=== PATIENT | female | born 1970 | race Caucasian/White ===

== ENCOUNTER → 2016-09-25 | Outpatient (CLI) | payer OTHER ==
--- NOTE | 2016-09-25 07:46 | US ---
EXAMINATION TYPE: US abdomen complete DATE OF EXAM: 09/25/2016 7:16 AM COMPARISON: NONE CLINICAL HISTORY: R10.9 ABD PAIN. RUQ ABD pain EXAM MEASUREMENTS: Liver Length: 18.7 cm Gallbladder Wall: 0.3 cm CBD: 0.2 cm Spleen: 11.5 cm Right Kidney: 11.6 x 4.8 x 5.0 cm Left Kidney: 11.5 x 5.8 x 4.7 cm Difficult, limited exam due to morbidly obese pt Pancreas: wnl, tail obscured by overlying bowel gas Liver: wnl Gallbladder: wnl Evidence for sonographic Jackson's sign: No CBD: wnl Spleen: wnl Right Kidney: wnl Left Kidney: wnl Upper IVC: wnl Abd Aorta: wnl No abnormality could be visualized within ABD Limited views of the pancreas are unremarkable. The liver is prominent measuring 19 cm. The gallbladder is unremarkable. The gallbladder wall measures 3 mm. Distal common hepatic duct measu res 2 mm. The spleen is normal in size. Both kidneys are unremarkable. IMPRESSION: MILD HEPATOMEGALY.
--- NOTE | 2016-09-25 07:47 | US ---
EXAMINATION TYPE: US pelvic complete DATE OF EXAM: 09/25/2016 7:23 AM COMPARISON: NONE CLINICAL HISTORY: R10.9 ABD PAIN. ABD pain TECHNIQUE: Transabdominal (TA) Date of LMP: 09/19/2016 EXAM MEASUREMENTS: Uterus: 12.1 x 6.1 x 7.3 cm Endometrial Stripe: 0.7 cm Right Ovary: 1.8 x 1.6 x 1.7 cm Left Ovary: 2.6 x 2.1 x 2.0 cm Difficult exam due to morbidly obese pt/ Pt did not want TV at this time 1. Uterus: Anteverted Enlarged, heterogeneous with probable fibroids 1)= 6.0 x 4.4 x 5.2 cm 2)= L US- 3.4 x 2.8 x 2.6 cm 2. Endometrium: wnl 3. Right Ovary: wnl 4. Left Ovary: wnl 5. Bilateral Adnexa: wnl 6. Posterior cul-de-sac: wnl IMPRESSION: 1. FIBROID UTERUS. 2. I SUSPECT SOME UNDERLYING ADENOMYOSIS.
== END | disposition home or self-care (01) ==
LOC: RADUSWWP 06:54
PROVIDERS: ATTEND Family Medicine
DX: D25.9 Leiomyoma of uterus, unspecified (principal); R16.0 Hepatomegaly, not elsewhere classified
CPT/HCPCS: 76700; 76856

== ENCOUNTER → 2016-10-03 | Outpatient (CLI) | payer OTHER ==
--- NOTE | 2016-10-03 08:50 | CT ---
EXAMINATION TYPE: CT chest wo con DATE OF EXAM: 10/03/2016 7:11 AM COMPARISON: NONE HISTORY: Rt sided chest pain per patient, pleurodynia per order CT DLP: 517.7 mGycm. Automated Exposure Control for Dose Reduction was Utilized. TECHNIQUE: CT scan of the thorax is performed without IV contrast. FINDINGS: LUNGS: Minimal scarlike opacity in the lingula near diaphragm is present on axial image 35. The lungs are otherwise predominantly clear, there is no concerning greater than 6 mm noncalcified parenchymal mass or nodule identified. There is no pleural effusion or pneumothorax seen. The tracheobronchia l tree is patent. MEDIASTINUM: Lack of IV contrast is noted to limit evaluation for mediastinal and especially hilar ad enopathy. There are no definitive greater than 1 cm hilar or mediastinal lymph nodes. No cardiomega ly or pericardial effusion is seen. Ascending aorta measures up to 3.3 cm in diameter on axial image 21. Adjacent pulmonary artery measures 3.2 cm in diameter , CT findings suggesting underlying pulmona ry artery hypertension. Slight eccentric bulging along the left lateral margin of the pulmonary root is seen on axial image 21 confirmed on coronal image 26 and sagittal image 65 anteriorly could reflec t ectasia or small eccentric aneurysm. OTHER: Multilevel spurring in thoracic spine is present. There is some generalized moderate fat repla mandi atrophy of the pectoralis muscles bilaterally. IMPRESSION: 1. No significant finding is seen to account for patient's symptoms of right-sided chest pain. 2. Prominence of pulmonary artery, CT findings suggesting pulmonary artery hypertension. There is ect latia or eccentric small aneurysm of the main pulmonary artery at its root noted. Consider cardiac ech o correlation.
== END | disposition home or self-care (01) ==
LOC: RADCTMAIN 06:54
PROVIDERS: ATTEND Family Medicine
DX: R07.81 Pleurodynia (principal); R10.9 Unspecified abdominal pain
CPT/HCPCS: 71250

== ENCOUNTER → 2016-10-23 | Outpatient (CLI) | payer OTHER ==
--- NOTE | 2016-10-24 10:50 | ECHOF ---
Referral Reason:I28.8 diseases of pulmonary vessels MEASUREMENTS -------- HEIGHT: 157.5 cm WEIGHT: 108.9 kg BP: 130/82 RVIDd: 3.1 cm (< 3.3) IVSd: 1.0 cm (0.6 - 1.1) LVIDd: 4.3 cm (3.9 - 5.3) LVPWd: 1.2 cm (0.6 - 1.1) IVSs: 1.1 cm LVIDs: 3.5 cm LVPWs: 1.2 cm LA Diam: 3.7 cm (2.7 - 3.8) LAESV Index (A-L): 25.31 ml/m Ao Diam: 3.0 cm (2.0 - 3.7) AV Cusp: 1.9 cm (1.5 - 2.6) LA Diam: 3.9 cm (2.7 - 3.8) MV EXCURSION: 14.230 mm (> 18.000) MV EF SLOPE: 103 mm/s (70 - 150) EPSS: 0.6 cm MV E Gordon: 0.78 m/s MV DecT: 237 ms MV A Gordon: 0.89 m/s MV E/A Ratio: 0.88 RAP: 5.00 mmHg RVSP: 18.87 mmHg FINDINGS -------- Sinus rhythm. Morbid Obesity There is mild concentric left ventricular hypertrophy. Overall left ventricular systolic function is low-normal with, an EF between 50 - 55 %. The right ventricle is normal in size. Normal LA size by volume 22+/-6 ml/m2. The right atrial size is normal. There is mild aortic valve sclerosis. There is no evidence of aortic regurgitation. Mild mitral annular calcification present. Mild mitral regurgitation is present. Mild tricuspid regurgitation present. There is no evidence of pulmonary hypertension. The right ventricular systolic pressure, as measured by Doppler, is 18.87mmHg. The pulmonic valve was not well visualized. The aortic root size is normal. Echo free space may represent effusion or a pericardial fat pad. CONCLUSIONS -------- 1. There is mild concentric left ventricular hypertrophy. 2. Echo free space may represent effusion or a pericardial fat pad. 3. Overall left ventricular systolic function is low-normal with, an EF between 50 - 55 %. 4. There is mild aortic valve sclerosis. 5. Mild mitral annular calcification present. 6. Mild mitral regurgitation is present. 7. Mild tricuspid regurgitation present. 8. There is no evidence of pulmonary hypertension. 9. The right ventricular systolic pressure, as measured by Doppler, is 18.87mmHg. 10. The pulmonic valve was not well visualized. RN MANAGER: Zenaida Sears RDCS
== END | disposition home or self-care (01) ==
LOC: RADECHMAIN 15:01
PROVIDERS: ATTEND Family Medicine
DX: I34.0 Nonrheumatic mitral (valve) insufficiency (principal); I07.1 Rheumatic tricuspid insufficiency
CPT/HCPCS: 93306

== ENCOUNTER → 2017-03-14 | Outpatient (CLI) | payer OTHER ==
--- NOTE | 2017-03-16 10:53 | MM ---
Reason for exam: screening (asymptomatic). Last mammogram was performed 6 years and 5 months ago. History: Patient is nulliparous. Family history of premenopausal breast cancer in maternal aunt at age 65 and breast cancer in maternal aunt. Physical Findings: A clinical breast exam by your physician is recommended on an annual basis and results should be correlated with mammographic findings. MG Screening Mammo w CAD Bilateral CC and MLO view(s) were taken. Prior study comparison: September 10, 2014, mammogram, performed at [facility] January 27, 2014, mammogram, performed at [facility] September 28, 2010, right diagnostic mammogram w/CAD. February 28, 2010, right breast mammogram dig work up. There are scattered fibroglandular densities. Stable focal asymmetry right breast 3 o'clock position. No significant changes when compared with prior studies. ASSESSMENT: Negative, BI-RAD 1 RECOMMENDATION: Routine screening mammogram of both breasts in 1 year.
== END | disposition home or self-care (01) ==
LOC: RADMAMWWP 07:39
PROVIDERS: ATTEND Family Medicine
DX: Z12.31 Encounter for screening mammogram for malignant neoplasm of breast (principal)

== ENCOUNTER 2018-01-09 19:22 | Emergency (ER) | payer OTHER ==
[2018-01-09 20:27] VITALS: RESP 18
[2018-01-09 21:08] LABS: Appearance,Urine Cloudy (Clear); Bacteria,Urine Rare /hpf; Bilirubin,Urine Negative (Negative); Blood,Urine Negative (Negative); Color,Urine Yellow; Glucose,Urine (UA) Negative (Negative); Ketones,Urine Negative (Negative); Leukocyte Esterase,Urine Negative (Negative); Mucus,Urine Rare /hpf; Nitrite,Urine Negative (Negative); PH, Urine 7.5 (5.0-8.0); Protein,Urine Trace (Negative); RBC,Urine 4 /hpf (0-5); Specific Gravity,Urine 1.022 (1.001-1.035); Squamous Epithelial Cell,Urine 5 /hpf (0-4); Urobilinogen,Urine <2.0 mg/dL (<2.0); WBC,Urine 1 /hpf (0-5)
--- NOTE | 2018-01-09 21:24 | XR ---
EXAMINATION TYPE: XR KUB DATE OF EXAM: 01/09/2018 COMPARISON: NONE HISTORY: Abdominal pain TECHNIQUE: 2 views upright FINDINGS: Bowel gas pattern is normal. There is no sign of intestinal obstruction or pneumoperitoneum . Fecal pattern is normal. There is no sign of a mass. IMPRESSION: Nonacute abdomen.
[2018-01-09] MEDS ORDERED: SODIUM CHLORIDE 0.9% 1,000 ML IV STA (22:48)
[2018-01-09] MEDS ORDERED: KETOROLAC 30 MG/ML 1 ML VIAL IVP STA (22:48)
[2018-01-09] MEDS ORDERED: METOCLOPRAMIDE 5 MG/ML 2 ML VIAL IVP STA (22:48)
[2018-01-09] MEDS ORDERED: PANTOPRAZOLE 40 MG/10 ML VIAL IVP STA (22:48)
--- NOTE | 2018-01-09 22:51 | ED ---
General Adult HPI - General Chief complaint: Abdominal Pain Stated complaint: abd and rt side pain Time Seen by Provider: 01/09/18 22:42 Source: patient, RN notes reviewed Mode of arrival: ambulatory Limitations: no limitations - History of Present Illness Initial comments: Patient is a pleasant 47-year-old female presenting to the emergency department with abdominal discomfort. Onset was around 1:30 today following eating lunch. No history of similar symptoms previously. Discomfort is in the right upper abdomen and does extend towards the back. Patient does have associated nausea, no vomiting. No fevers. Discomfort has remained somewhat severe. No leg pain or leg swelling. No chest pain. - Related Data Home Medications Medication Instructions Recorded Confirmed Acetaminophen [Tylenol] 650 mg PO Q4H PRN 01/09/18 01/09/18 Albuterol Sulfate [Proventil Hfa] 1 - 2 puff INHALATION RT-Q6H PRN 01/09/1809/21 Ferrous Sulfate [Iron] 325 mg PO DAILY 01/09/18 01/09/18 Lansoprazole [Prevacid] 15 mg PO DAILY 01/09/18 01/09/18 Menthol [Biofreeze] 1 applic TOPICAL BID PRN 01/09/18 01/09/18 Montelukast Sodium [Singulair] 10 mg PO HS 01/09/18 01/09/18 Allergies Allergy/AdvReac Type Severity Reaction Status Date / Time Sulfa (Sulfonamide AdvReac Unknown Verified 01/09/18 22:52 Antibiotics) Childhood sulfamethoxazole AdvReac Unknown Verified 01/09/18 22:52 [From Bactrim] trimethoprim [From Bactrim] AdvReac Unknown Verified 01/09/18 22:52 Review of Systems ROS Statement: Those systems with pertinent positive or pertinent negative responses have been documented in the HPI. ROS Other: All systems not noted in ROS Statement are negative. Constitutional: Denies: fever Eyes: Denies: eye pain ENT: Denies: ear pain Respiratory: Denies: cough, dyspnea Cardiovascular: Denies: chest pain Endocrine: Denies: fatigue Gastrointestinal: Reports: abdominal pain, nausea. Denies: vomiting, diarrhea, constipation Genitourinary: Denies: dysuria Musculoskeletal: Denies: arthralgia Skin: Denies: rash Neurological: Denies: weakness Past Medical History Past Medical History: Asthma History of Any Multi-Drug Resistant Organisms: None Reported Past Surgical History: Orthopedic Surgery Additional Past Surgical History / Comment(s): sinus surgery, 3 right knee, 2 left knee Past Psychological History: No Psychological Hx Reported Smoking Status: Never smoker Past Alcohol Use History: None Reported Past Drug Use History: None Reported General Exam Limitations: no limitations General appearance: alert, other (Patient does appear uncomfortable) Head exam: Present: atraumatic, normocephalic Eye exam: Present: normal appearance, PERRL ENT exam: Present: normal oropharynx Neck exam: Present: normal inspection Respiratory exam: Present: normal lung sounds bilaterally Cardiovascular Exam: Present: regular rate, normal rhythm Expanded Peripheral pulses: 2+: Dorsalis Pedis (R), Dorsalis Pedis (L) GI/Abdominal exam: Present: soft, tenderness (Mild to moderate tenderness epigastrium and right upper quadrant), normal bowel sounds. Absent: distended, guarding, rebound, rigid, pulsatile mass Extremities exam: Present: normal inspection. Absent: pedal edema, calf tenderness Back exam: Present: normal inspection Neurological exam: Present: alert Psychiatric exam: Present: normal affect, normal mood Skin exam: Present: normal color Course Vital Signs 01/09/18 20:23 Temperature 98.5 F Pulse Rate 103 H Respiratory 18 Rate Blood Pressure 138/80 O2 Sat by Pulse 97 Oximetry Medical Decision Making - Medical Decision Making Patient reevaluated and resting comfortably in bed. Symptoms have significantly improved with medication. Abdomen soft and nontender. Patient updated on results and need for follow-up with surgeon. Patient also advised to return for fevers or worsening symptoms. - Lab Data Result diagrams: 01/09/18 22:42 01/09/18 22:42 Lab Results 01/09/18 01/09/18 01/09/18 Range/Units 20:27 22:42 22:42 WBC 11.8 H (3.8-10.6) k/uL RBC 4.59 (3.80-5.40) m/uL Hgb 12.6 (11.4-16.0) gm/dL Hct 39.3 (34.0-46.0) % MCV 85.6 (80.0-100.0) fL MCH 27.4 (25.0-35.0) pg MCHC 32.0 (31.0-37.0) g/dL RDW 14.0 (11.5-15.5) % Plt Count 488 H (150-450) k/uL Neutrophils % 74 % Lymphocytes % 21 % Monocytes % 4 % Eosinophils % 1 % Basophils % 0 % Neutrophils # 8.7 H (1.3-7.7) k/uL Lymphocytes # 2.5 (1.0-4.8) k/uL Monocytes # 0.4 (0-1.0) k/uL Eosinophils # 0.1 (0-0.7) k/uL Basophils # 0.0 (0-0.2) k/uL Hypochromasia Slight PT (9.0-12.0) sec INR (<1.2) APTT (22.0-30.0) sec Sodium 140 (137-145) mmol/L Potassium 4.1 (3.5-5.1) mmol/L Chloride 98 (98-107) mmol/L Carbon Dioxide 30 (22-30) mmol/L Anion Gap 12 mmol/L BUN 17 (7-17) mg/dL Creatinine 0.71 (0.52-1.04) mg/dL Est GFR (CKD-EPI)AfAm >90 (>60 ml/min/1.73 sqM) Est GFR (CKD-EPI)NonAf >90 (>60 ml/min/1.73 sqM) Glucose 116 H (74-99) mg/dL Calcium 9.9 (8.4-10.2) mg/dL Total Bilirubin 0.4 (0.2-1.3) mg/dL AST 19 (14-36) U/L ALT 23 (9-52) U/L Alkaline Phosphatase 99 (38-126) U/L Total Protein 8.0 (6.3-8.2) g/dL Albumin 4.6 (3.5-5.0) g/dL Amylase 96 (30-110) U/L Lipase 145 (23-300) U/L Urine Color Yellow Urine Appearance Cloudy H (Clear) Urine pH 7.5 (5.0-8.0) Ur Specific [place] 1.022 (1.001-1.035) Urine Protein Trace H (Negative) Urine Glucose (UA) Negative (Negative) Urine Ketones Negative (Negative) Urine Blood Negative (Negative) Urine Nitrite Negative (Negative) Urine Bilirubin Negative (Negative) Urine Urobilinogen <2.0 (<2.0) mg/dL Ur Leukocyte Esterase Negative (Negative) Urine RBC 4 (0-5) /hpf Urine WBC 1 (0-5) /hpf Ur Squamous Epith Cells 5 H (0-4) /hpf Urine Bacteria Rare H (None) /hpf Urine Mucus Rare H (None) /hpf 01/09/18 Range/Units 22:42 WBC (3.8-10.6) k/uL RBC (3.80-5.40) m/uL Hgb (11.4-16.0) gm/dL Hct (34.0-46.0) % MCV (80.0-100.0) fL MCH (25.0-35.0) pg MCHC (31.0-37.0) g/dL RDW (11.5-15.5) % Plt Count (150-450) k/uL Neutrophils % % Lymphocytes % % Monocytes % % Eosinophils % % Basophils % % Neutrophils # (1.3-7.7) k/uL Lymphocytes # (1.0-4.8) k/uL Monocytes # (0-1.0) k/uL Eosinophils # (0-0.7) k/uL Basophils # (0-0.2) k/uL Hypochromasia PT 9.8 (9.0-12.0) sec INR 1.0 (<1.2) APTT 22.7 (22.0-30.0) sec Sodium (137-145) mmol/L Potassium (3.5-5.1) mmol/L Chloride (98-107) mmol/L Carbon Dioxide (22-30) mmol/L Anion Gap mmol/L BUN (7-17) mg/dL Creatinine (0.52-1.04) mg/dL Est GFR (CKD-EPI)AfAm (>60 ml/min/1.73 sqM) Est GFR (CKD-EPI)NonAf (>60 ml/min/1.73 sqM) Glucose (74-99) mg/dL Calcium (8.4-10.2) mg/dL Total Bilirubin (0.2-1.3) mg/dL AST (14-36) U/L ALT (9-52) U/L Alkaline Phosphatase (38-126) U/L Total Protein (6.3-8.2) g/dL Albumin (3.5-5.0) g/dL Amylase (30-110) U/L Lipase (23-300) U/L Urine Color Urine Appearance (Clear) Urine pH (5.0-8.0) Ur Specific [place] (1.001-1.035) Urine Protein (Negative) Urine Glucose (UA) (Negative) Urine Ketones (Negative) Urine Blood (Negative) Urine Nitrite (Negative) Urine Bilirubin (Negative) Urine Urobilinogen (<2.0) mg/dL Ur Leukocyte Esterase (Negative) Urine RBC (0-5) /hpf Urine WBC (0-5) /hpf Ur Squamous Epith Cells (0-4) /hpf Urine Bacteria (None) /hpf Urine Mucus (None) /hpf - Radiology Data Radiology results: report reviewed (Ultrasound shows some shadowing in the region of the gallbladder that could relate to contracted gallbladder with stones. Gallbladder is not definitively seen. No dilated ducts.), image reviewed (KUB shows no acute process) Disposition Clinical Impression: Abdominal pain Disposition: HOME SELF-CARE Condition: Stable Instructions: Abdominal Pain (ED), Gallstones (ED), Low Fat Diet (ED) Additional Instructions: Please follow-up with general surgeon in the next day or 2 for recheck, number provided. Return for fevers, increased pain, worsening or changing symptoms or other concerns. Is patient prescribed a controlled substance at d/c from ED?: No Referrals: Selina Carpenter DO [Primary Care Provider] - 1-2 days Miguelina Bravo MD [STAFF PHYSICIAN] - 1-2 days Time of Disposition: 23:46
[2018-01-09 23:11] LABS: Basophils % (A) 0 %; Eosinophils # (A) 0.1 k/uL (0-0.7); Eosinophils % (A) 1 %; HCT 39.3 % (34.0-46.0); HGB 12.6 gm/dL (11.4-16.0); Hypochromasia Slight; Lymphocytes # (A) 2.5 k/uL (1.0-4.8); Lymphocytes % (A) 21 %; MCH 27.4 pg (25.0-35.0); MCV 85.6 fL (80.0-100.0); Mean Platelet Volume 6.5; Monocytes # (A) 0.4 k/uL (0-1.0); Monocytes % (A) 4 %; Neutrophils # (A) 8.7 k/uL (1.3-7.7); Neutrophils % (A) 74 %; Platelet Count 488 k/uL (150-450); RBC 4.59 m/uL (3.80-5.40); WBC 11.8 k/uL (3.8-10.6)
[2018-01-09 23:21] LABS: ALT 23 U/L (9-52); AST 19 U/L (14-36); Albumin 4.6 g/dL (3.5-5.0); Alkaline Phosphatase 99 U/L (38-126); Amylase 96 U/L (30-110); Anion Gap 12 mmol/L; Blood Urea Nitrogen 17 mg/dL (7-17); Calcium 9.9 mg/dL (8.4-10.2); Carbon Dioxide 30 mmol/L (22-30); Chloride 98 mmol/L (98-107); Glucose 116 mg/dL (74-99); Lipase 145 U/L (23-300); Potassium 4.1 mmol/L (3.5-5.1); Sodium 140 mmol/L (137-145); Total Bilirubin 0.4 mg/dL (0.2-1.3)
[2018-01-09 23:23] LABS: Partial Thromboplastin Time 22.7 sec (22.0-30.0); Prothrombin Time 9.8 sec (9.0-12.0)
--- NOTE | 2018-01-09 23:38 | US ---
EXAMINATION TYPE: US gallbladder DATE OF EXAM: 01/09/2018 COMPARISON: 09/25/2016 CLINICAL HISTORY: Pain. Pain and nausea. Exam limitations due to bbody habitus. EXAM MEASUREMENTS: Liver Length: 20 cm Gallbladder Wall: Not well visualized due to body habitus and bowel gas. CBD: 0.6 cm Right Kidney: 10.5 x 4.2 x 3.7 cm Pancreas: Obscured by bowel gas Liver: Increased attenuation hepatomegaly. Gallbladder: Obscured by overlying bowel gas or possible GENNA sign. Limited. Evidence for sonographic Jackson's sign: Yes CBD: wnl Right Kidney: No hydronephrosis or masses seen IMPRESSION: There is some shadowing in the region of the gallbladder that could relate to contracted gallbladder filled with stones. No dilated ducts. No discrete liver mass. Gallbladder is not definiti vely seen. This is a change compared to last exam.
[2018-01-10 00:04] VITALS: BP 156/90; PULSE 63; TEMP 98
== END 2018-01-10 00:05 | disposition home or self-care (01) ==
LOC: EC 19:22
DX: R10.9 Unspecified abdominal pain (principal); R11.0 Nausea; J45.909 Unspecified asthma, uncomplicated; Z98.890 Other specified postprocedural states; Z79.899 Other long term (current) drug therapy; Z88.1 Allergy status to other antibiotic agents; Z88.2 Allergy status to sulfonamides
CPT/HCPCS: 36415; 93005; 80053; 82150; 83690; 85025; 85610; 85730; 81001; 74018; 76705; 99284; 96374; 96375 ×2; 96361; J2765; J1885; C9113

== ENCOUNTER → 2018-01-14 | Outpatient (CLI) | payer OTHER ==
--- NOTE | 2018-01-14 09:08 | US ---
EXAMINATION TYPE: US abdomen complete DATE OF EXAM: 01/14/2018 COMPARISON: US 01/09/2018 CLINICAL HISTORY: Gallstones K56.3. Inconclusive ultrasound done 5 days ago. Possible gallstones. RUQ pain EXAM MEASUREMENTS: Liver Length: 16.4 cm Gallbladder Wall: 0.2 cm CBD: 0.5 cm Spleen: 9.8 cm Right Kidney: 12.0 x 4.3 x 5.4 cm Left Kidney: 10.8 x 4.9 x 4.2 cm Pancreas: Obscured by bowel gas Liver: Attenuating, echogenic Gallbladder: No stones visualized Evidence for sonographic Jackson's sign: No CBD: wnl as visualized Spleen: wnl Right Kidney: Echogenic foci visualized measuring 1.0 cm Left Kidney: Limited due to overlying bowel gas, visualized portions show a possible echogenic foci measuring 0.6 cm Upper IVC: wnl Abd Aorta: wnl IMPRESSION: 1. Suspect bilateral nephrolithiasis without hydronephrosis. 2. Mild fatty liver.
== END | disposition home or self-care (01) ==
LOC: RADUSWWP 08:09
PROVIDERS: ATTEND Surgery
DX: K76.0 Fatty (change of) liver, not elsewhere classified (principal)
CPT/HCPCS: 76700

== ENCOUNTER → 2018-01-28 | Outpatient (CLI) | payer OTHER ==
--- NOTE | 2018-01-28 09:54 | CT ---
EXAMINATION TYPE: CT abdomen pelvis w con DATE OF EXAM: 01/28/2018 COMPARISON: Ultrasound 01/14/2018 HISTORY: right sided abdominal pain CT DLP: 1745 mGycm Automated exposure control for dose reduction was used. CONTRAST: CT scan of the abdomen pelvis is performed with IV Contrast, patient injected with 100mL mL of Isovue 300. FINDINGS- LUNG BASES- No significant abnormality is appreciated. LIVER/GB-no gallstones. Liver may be slightly diminished in attenuation.. PANCREAS- No gross abnormality is seen. SPLEEN- No gross abnormality is seen. ADRENALS- No gross abnormality is seen. KIDNEYS/BLADDER-2.5 cm right simple renal cyst. No hydronephrosis. No renal calculi.. BOWEL- no bowel dilatation. Normal appendix. LYMPH NODES- No greater than 1cm abdominal or pelvic lymph nodes areappreciated. OSSEOUS STRUCTURES-hypertrophic change of the spine.. OTHER- uterus appears to be enlarged and there is a 4 cm soft tissue lesion in the left adnexa for w hich pelvic ultrasound is recommended. Endometrium also appears to be heterogeneous. IMPRESSION- 1. Uterus is enlarged and heterogeneous. The endometrium is heterogeneous. This can occasionally be s een with diffuse fibroid change. This correlates with a previous ultrasound of uterine fibroids. Rojas colby, there also is a 4 cm left adnexal mass posterior to the uterus on the left. Recommend ultrasound of the pelvis to determine if this is related to an exophytic fibroid, uterine mass or possibly lymp hadenopathy. 2. No renal stones, hydronephrosis or gallstones #3 simple right renal cyst
== END | disposition home or self-care (01) ==
LOC: RADCTMAIN 07:53
PROVIDERS: ATTEND Family Medicine
DX: N85.2 Hypertrophy of uterus (principal); N28.1 Cyst of kidney, acquired; R19.09 Other intra-abdominal and pelvic swelling, mass and lump
CPT/HCPCS: 74177; Q9967

== ENCOUNTER → 2018-01-29 | Outpatient (CLI) | payer OTHER ==
--- NOTE | 2018-01-29 18:51 | US ---
EXAMINATION TYPE: US pelvis complete transvag DATE OF EXAM: 01/29/2018 COMPARISON: CT 01/28/2018, pelvic ultrasound 09/25/2016, pelvic ultrasound 06/15/2010, MRI pelvis 1 CLINICAL HISTORY: R10.2 Pelvis Pain right F/U to CT TECHNIQUE: Transvaginal (TV) and Transabdominal (TA) . Transabdominal sonographic images of the pel vis were acquired. Transvaginal sonographic images were medically necessary to better assess the fol lowing anatomy: Uterus Date of LMP: 01/27/18 EXAM MEASUREMENTS: Uterus: 13.0 x 6.4 x 8.9 cm Endometrial Stripe: not visualized Right Ovary: 2.0 x 1.8 x 1.9 cm Left Ovary: 2.9 x 2.0 x 1.7cm Morbidly obese patient, technically difficult and somewhat limited study. 1. Uterus: there appears to be 2 fibroids, one located rather left and exophytic measuring 4.1 x 2.3 x 3.0cm, the other measuring 4.9 x 3.6 x 2.7cm 2. Endometrium: unable to visualize due to large fibroid and technical limitations 3. Right Ovary: wnl 4. Left Ovary: wnl 5. Bilateral Adnexa: wnl 6. Posterior cul-de-sac: wnl IMPRESSION: Left adnexal mass was seen on prior pelvic MRI and ultrasound dated 2010 that has grown in the interval from approximately 2.6 cm to 4.1 cm in greatest dimension and is thought likely to r epresent exophytic fibroid.
== END | disposition home or self-care (01) ==
LOC: RADUSWWP 15:00
PROVIDERS: ATTEND Family Medicine
DX: N85.8 Other specified noninflammatory disorders of uterus (principal)
CPT/HCPCS: 76830; 76856

== ENCOUNTER → 2018-07-15 | Outpatient (CLI) | payer OTHER ==
[2018-07-15 08:26] LABS: Basophils % (A) 0 %; Eosinophils # (A) 0.1 k/uL (0-0.7); Eosinophils % (A) 1 %; HCT 38.2 % (34.0-46.0); HGB 12.4 gm/dL (11.4-16.0); Hypochromasia Slight; Lymphocytes % (A) 28 %; MCH 28.6 pg (25.0-35.0); MCHC 32.4 g/dL (31.0-37.0); MCV 88.4 fL (80.0-100.0); Monocytes # (A) 0.4 k/uL (0-1.0); Monocytes % (A) 6 %; Neutrophils # (A) 4.4 k/uL (1.3-7.7); Neutrophils % (A) 63 %; Platelet Count 349 k/uL (150-450); RBC 4.32 m/uL (3.80-5.40); RDW 14.8 % (11.5-15.5); WBC 7.1 k/uL (3.8-10.6)
== END ==
LOC: LABPAT 07:39
PROVIDERS: ATTEND Obstetrics & Gynecology
DX: Z01.812 Encounter for preprocedural laboratory examination (principal)
CPT/HCPCS: 85025

== ENCOUNTER → 2018-07-17 | Outpatient (CLI) | payer OTHER ==
--- NOTE | 2018-07-17 12:21 | MM ---
Reason for exam: screening (asymptomatic). Last mammogram was performed 1 year and 4 months ago. History: Patient is nulliparous. Family history of premenopausal breast cancer in maternal aunt at age 65 and breast cancer in maternal aunt. Physical Findings: A clinical breast exam by your physician is recommended on an annual basis and results should be correlated with mammographic findings. MG Screening Mammo w CAD Bilateral CC and MLO view(s) were taken. Prior study comparison: March 14, 2017, bilateral MG screening mammo w CAD. September 10, 2014, mammogram, performed at [facility]. The breast tissue is heterogeneously dense. This may lower the sensitivity of mammography. There are benign appearing round calcifications bilaterally. There is no discrete abnormality. ASSESSMENT: Benign, BI-RAD 2 RECOMMENDATION: Routine screening mammogram of both breasts in 1 year.
== END | disposition home or self-care (01) ==
LOC: RADMAMWWP 07:23
PROVIDERS: ATTEND Obstetrics & Gynecology
DX: Z12.31 Encounter for screening mammogram for malignant neoplasm of breast (principal)
CPT/HCPCS: 77067

== ENCOUNTER 2018-07-22 06:13 | Day surgery (SDC) | payer OTHER ==
[2018-07-16 12:04] VITALS: BMI 43.0
--- NOTE | 2018-07-21 15:44 | P.HPOB ---
History of Present Illness H&P Date: 07/21/18 Chief Complaint: Menorrhagia with irregular cycle This is a 47-year-old female 0 who presents for dilation and curettage with hysteroscopy and NovaSure endometrial ablation due to menorrhagia with irregular cycle, dysmenorrhea, and uterine fibroids. She states she has been having heavy painful and long menses occurring for at least a year now. Her pelvic ultrasound showed a uterus measuring 13 x 6.4 x 8.9 cm with endometrium not well visualized and 2 fibroids one on the left side, exophytic, measuring 4.1 x 2.3 x 3 cm and the other measuring 4.9 x 3.6 x 2.7 cm. Both ovaries appeared normal. Her menses are occurring every 3-4 weeks and lasting about 10 days. She bleeds heavy for 5-6 days and bleeds through tampons and pads along with her clothing. She is passing large clots and having cramping. She would like definitive surgical treatment to control her bleeding problem. She is aware of the limitations of the NovaSure procedure and is aware that it may not work in her case due to the size of her uterus and the fibroids. Obstetrical history: . Gynecologic history: No history of sexually transmitted diseases. She has never been sexually active. 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 Review of Systems Constitutional: Reports fatigue, Denies chills, Denies fever Eyes: denies blurred vision, denies pain Ears, nose, mouth and throat: Denies headache, Denies sore throat Cardiovascular: Denies chest pain, Denies shortness of breath Respiratory: Denies cough Gastrointestinal: Reports heartburn Genitourinary: Reports dysmenorrhea, Reports menorrhagia, Reports pelvic pain, Reports urinary frequency Menstruation: Reports menses 8 or > days, Reports menses variable, Reports period heavy Musculoskeletal: Reports low back pain Integumentary: Denies pruritus, Denies rash Neurological: Denies numbness, Denies weakness Psychiatric: Reports anxiety, Reports insomnia Past Medical History Past Medical History: Asthma, GERD/Reflux, Hyperlipidemia, Hypertension, Osteoarthritis (OA) Additional Past Medical History / Comment(s): Anemia History of Any Multi-Drug Resistant Organisms: None Reported Past Surgical History: Breast Surgery (Right breast biopsy), Orthopedic Surgery Additional Past Surgical History / Comment(s): sinus surgery, 3 ARTHROSCOPIC- right knee, 2 ARTHROSCOPIC -left knee Past Anesthesia/Blood Transfusion Reactions: No Reported Reaction Past Psychological History: Anxiety Smoking Status: Never smoker Past Alcohol Use History: None Reported Past Drug Use History: None Reported - Past Family History Mother Family Medical History: Hypertension Father Family Medical History: Hypertension, Myocardial Infarction ([place]) Medications and Allergies Home Medications Medication Instructions Recorded Confirmed Type Ferrous Sulfate [Iron] 325 mg PO DAILY PRN 01/09/18 07/16/18 History Lansoprazole [Prevacid] 15 mg PO HS 01/09/18 07/16/18 History Menthol [Biofreeze] 1 applic TOPICAL BID PRN 01/09/18 07/16/18 History Montelukast Sodium [Singulair] 10 mg PO HS 01/09/18 07/16/18 History Lisinopril-Hctz 10-12.5 mg 1 tab PO HS 07/16/18 07/16/18 History [Zestoretic 10-12.5] Ranitidine HCl [Zantac] 150 mg PO HS PRN 07/16/18 07/16/18 History Allergies Allergy/AdvReac Type Severity Reaction Status Date / Time Sulfa (Sulfonamide AdvReac Unknown Verified 07/17/18 10:27 Antibiotics) Childhood sulfamethoxazole AdvReac "BLOOD IN Verified 07/16/18 11:34 [From Bactrim] EYES trimethoprim [From Bactrim] AdvReac "BLOOD IN Verified 07/17/18 10:27 EYES" Exam Osteopathic Statement: *. No significant issues noted on an osteopathic structural exam other than those noted in the History and Physical/Consult. HEENT: Within normal limits Heart: Regular rate and rhythm Lungs: Clear to auscultation bilaterally Abdomen: Soft, nontender Pelvic exam: Uterus is nodular and slightly enlarged, nontender with no adnexal masses or tenderness noted. Cervical os is nulliparous but difficult to completely visualize. Extremities: Negative Homans Assessment and Plan (1) Menorrhagia with irregular cycle Status: Acute Code(s): N92.1 - EXCESSIVE AND FREQUENT MENSTRUATION WITH IRREGULAR CYCLE SNOMED Code(s): 663204154 (2) Dysmenorrhea Status: Acute Code(s): N94.6 - DYSMENORRHEA, UNSPECIFIED SNOMED Code(s): 564066488 (3) Uterine leiomyoma Status: Acute Code(s): D25.9 - LEIOMYOMA OF UTERUS, UNSPECIFIED SNOMED Code(s): 05746617 Plan: Proceed with dilation and curettage with hysteroscopy and NovaSure endometrial ablation. I have discussed the risks, benefits, and alternative therapies for the above- mentioned procedure and for both sedation/anesthesia as well as necessary blood products administration, if indicated, as they pertain to this patient. The pat ient has indicated her understanding and acceptance of the risks and procedures discussed.
[~2018-07-22 06:13] MED LIST: DEXAMETHASONE SOD PHOSPHATE 10 MG/ML 1 ML VIAL IV ONE; LACTATED RINGERS 1,000 ML IV SCH; MORPHINE SULFATE 4 MG/ML SYRINGE IV PRN; ONDANSETRON 4 MG/2 ML VIAL IVP ONE; Pre Op ABX Message 1 EACH MISC MISCELLANE ONE
[2018-07-22] MEDS ORDERED: LIDOCAINE 1% 20 ML VIAL (10MG/ML) FOR IV START INTRADERMA ONE (06:54)
[2018-07-22] MEDS ORDERED: ONDANSETRON 4 MG/2 ML VIAL IVP ONE (06:55)
[2018-07-22] MEDS ORDERED: DEXAMETHASONE SOD PHOS (MDV) 100 MG/10 ML VIAL IV ONE (06:55)
[2018-07-22 07:00] VITALS: RESP 16
[2018-07-22] MEDS ORDERED: LIDOCAINE 1% INJ 10MG/ML (20 ML MDV) ONE (07:29)
[2018-07-22] MEDS ORDERED: fentaNYL (PF) 50 MCG/ML 2 ML AMP ONE (07:29)
[2018-07-22] MEDS ORDERED: MIDAZOLAM 2 MG/2 ML VIAL ONE (07:29)
[2018-07-22] MEDS ORDERED: SUCCINYLCHOLINE CHLORIDE VIAL 200 MG/10 ML VIAL IV ONE (07:29)
[2018-07-22] MEDS ORDERED: PROPOFOL 10 MG/ML 20 ML VIAL IV ONE (07:29)
[2018-07-22] MEDS ORDERED: KETOROLAC 30 MG/ML 1 ML VIAL ONE (07:29)
--- NOTE | 2018-07-22 08:10 | P.OP ---
Date of Procedure: 07/22/18 Preoperative Diagnosis: Menorrhagia with irregular cycle Dysmenorrhea Uterine fibroids Postoperative Diagnosis: Same Procedure(s) Performed: Dilation and curettage with hysteroscopy and attempted but failed NovaSure endometrial ablation Anesthesia: MARCO Surgeon: Jessica Asencio Estimated Blood Loss (ml): 20 Pathology: other (Endometrial curettings) Condition: stable Disposition: same day Indications for Procedure: This is a 47-year-old female 0 who presents for dilation and curettage with hysteroscopy and NovaSure endometrial ablation due to menorrhagia with irregular cycle, dysmenorrhea, and uterine fibroids. She states she has been having heavy painful and long menses occurring for at least a year now. Her pelvic ultrasound showed a uterus measuring 13 x 6.4 x 8.9 cm with endometrium not well visualized and 2 fibroids one on the left side, exophytic, measuring 4.1 x 2.3 x 3 cm and the other measuring 4.9 x 3.6 x 2.7 cm. Both ovaries appeared normal. Her menses are occurring every 3-4 weeks and lasting about 10 days. She bleeds heavy for 5-6 days and bleeds through tampons and pads along with her clothing. She is passing large clots and having cramping. She would like definitive surgical treatment to control her bleeding problem. She is aware of the limitations of the NovaSure procedure and is aware that it may not work in her case due to the size of her uterus and the fibroids. Operative Findings: Uterus is mid position and bulky on pelvic exam. Upon hysteroscopy, both tubal ostia are visualized however it appears that there is a fairly large submucosal fibroid between the 2 ostia creating almost a heart-shaped uterus. A large amount of endometrial curettings are obtained. Submucosal fibroids were palpated on curetting. NovaSure was not able to be completed due to vacuum error 2. Description of Procedure: The patient is taken to the operating room. She is placed in the dorsal lithotomy position after general anesthesia was given. She is prepped and draped in the normal sterile fashion. Bladder is drained with a catheter and then removed. Pelvic exam is performed under anesthesia. Uterus is found to be mid position with no adnexal masses. She is placed in slight Trendelenburg position. A right angle retractor is used to visualize the cervix. The anterior lip of the cervix is grasped with a single-tooth tenaculum. Cervix is sounded to 4 cm. Uterus is sounded to 11 cm. Cervix is gently dilated with Newton dilators until a hysteroscope could be passed. Hysteroscopy is performed using normal saline. The above noted findings are noted. Next medium-sized size sharp curette was placed. A moderate to large amount of endometrial curettings were obtained. Next NovaSure array was inserted into the endometrial cavity. Length was set at 6.5 cm and width was determined to be 4.5 cm. During attempting to open the array, initially was very difficult to open the array until I backed out slightly. Next cavity assessment was completed and passed on the first try. Next NovaSure array was fired at 168 W for 8 seconds before vacuum care was noted. The array was then removed and reinserted. One more attempts at firing was carried out and only 7 seconds passed before vacuum error was noted again. Next the array was removed, inspected and then discarded. Next the hysteroscope was reinserted. Difficult visualization was noted secondary to curetting. Hysteroscope was removed. Single-tooth tenaculum was removed from the anterior lip of the cervix. Minimal bleeding was noted. All other instruments removed from the vagina. Sponge counts were correct. Patient is taken to recovery room in stable condition. I feel that the submucosal fibroid between the 2 tubal ostia was impacting the seating of the array and possibly why it did not work in this case.
[2018-07-22 08:29] VITALS: TEMP 97.1
[2018-07-22] MEDS: HYDROmorphone 0.5 MG/0.5 ML SYRINGE IVP PRN ×2 (08:46→08:51)
[2018-07-22 09:52] VITALS: BP 105/71; PULSE 67
== END 2018-07-22 10:33 | disposition home or self-care (01) ==
LOC: OR 06:13
PROVIDERS: ATTEND Obstetrics & Gynecology
DX: N92.0 Excessive and frequent menstruation with regular cycle (principal); D25.9 Leiomyoma of uterus, unspecified; Z88.2 Allergy status to sulfonamides; I10 Essential (primary) hypertension; E78.5 Hyperlipidemia, unspecified; J45.909 Unspecified asthma, uncomplicated; K21.9 Gastro-esophageal reflux disease without esophagitis; Z79.51 Long term (current) use of inhaled steroids; Z79.899 Other long term (current) drug therapy; Z82.49 Family history of ischemic heart disease and other diseases of the circulatory system
CPT/HCPCS: 81025; 88305; 58563; J2250; J0330; J2405; J2001; J3010; J1885; J1100; J2704; J1170

== ENCOUNTER → 2018-08-20 | Outpatient (CLI) | payer OTHER ==
[2018-08-20 08:50] LABS: Basophils % (A) 0 %; Eosinophils # (A) 0.1 k/uL (0-0.7); Eosinophils % (A) 2 %; HCT 35.8 % (34.0-46.0); HGB 11.3 gm/dL (11.4-16.0); Hypochromasia Slight; Lymphocytes # (A) 1.5 k/uL (1.0-4.8); Lymphocytes % (A) 31 %; MCH 26.7 pg (25.0-35.0); MCHC 31.6 g/dL (31.0-37.0); MCV 84.4 fL (80.0-100.0); Mean Platelet Volume 6.4; Monocytes # (A) 0.2 k/uL (0-1.0); Monocytes % (A) 5 %; Neutrophils # (A) 2.9 k/uL (1.3-7.7); Neutrophils % (A) 60 %; Platelet Count 377 k/uL (150-450); RBC 4.24 m/uL (3.80-5.40); WBC 4.9 k/uL (3.8-10.6)
[2018-08-20 08:57] LABS: Anion Gap 7 mmol/L; Blood Urea Nitrogen 11 mg/dL (7-17); Calcium 8.9 mg/dL (8.4-10.2); Carbon Dioxide 30 mmol/L (22-30); Chloride 102 mmol/L (98-107); Glucose 101 mg/dL (74-99); Potassium 3.7 mmol/L (3.5-5.1); Sodium 139 mmol/L (137-145)
== END ==
LOC: LABWHC1 07:42
PROVIDERS: ATTEND Obstetrics & Gynecology
DX: Z01.812 Encounter for preprocedural laboratory examination (principal)
CPT/HCPCS: 36415; 80048; 85025

== ENCOUNTER 2018-08-27 06:01 | Inpatient (IN) | payer OTHER ==
--- NOTE | 2018-08-26 18:14 | P.HPOB ---
History of Present Illness H&P Date: 08/26/18 Chief Complaint: Simple endometrial hyperplasia This is a 47-year-old female 0 who presents for total abdominal hysterectomy with bilateral salpingo-oophorectomy due to simple endometrial hyperplasia found on dilation and curettage. She underwent dilation and curett age with hysteroscopy in July 2018 due to menorrhagia and uterine fibroids. Endometrial ablation was unable to be completed due to irregular uterine contour. Menses are occurring every 3-4 weeks and lasting at least 10 days with at least 5-6 days very heavy with large clots and cramping. Her pelvic ultrasound showed uterus measuring 13 x 6.4 x 8.9 cm with at least 2 fibroids the largest of which was 4.9 cm. Both ovaries appeared normal. Obstetrical history: G0. Gynecologic history: No history of sexually transmitted diseases. No current partner. 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 Review of Systems All systems: negative Constitutional: Reports fatigue, Denies chills, Denies fever Eyes: denies blurred vision, denies pain Ears, nose, mouth and throat: Denies headache, Denies sore throat Cardiovascular: Denies chest pain, Denies shortness of breath Respiratory: Denies cough Gastrointestinal: Reports heartburn, Denies abdominal pain, Denies diarrhea, Denies nausea, Denies vomiting Genitourinary: Reports dysmenorrhea, Reports menorrhagia, Reports pelvic pain, Reports urinary frequency Musculoskeletal: Reports low back pain Neurological: Denies numbness, Denies weakness Psychiatric: Reports anxiety, Reports insomnia Past Medical History Past Medical History: Asthma, GERD/Reflux, Hypertension, Osteoarthritis (OA) History of Any Multi-Drug Resistant Organisms: None Reported Past Surgical History: Orthopedic Surgery Additional Past Surgical History / Comment(s): sinus surgery, 3 right knee ARTHROSCOPIC, 2 left knee ARTHROSCOPIC . D&C Past Anesthesia/Blood Transfusion Reactions: No Reported Reaction Additional Past Anesthesia/Blood Transfusion Reaction / Comment(s): PATIENT STATES SHE HAD A SORE THROAT AFTER HER SURGERY IN JULY 2018- SEE ANESTHESIA REPORT-REPORT IN EMR UNDER REPORTS Smoking Status: Never smoker Past Alcohol Use History: None Reported Past Drug Use History: None Reported - Past Family History Mother Family Medical History: Hypertension Father Family Medical History: Hypertension, Myocardial Infarction ([place]) Medications and Allergies Home Medications Medication Instructions Recorded Confirmed Type Ferrous Sulfate [Iron] 325 mg PO DAILY PRN 01/09/18 08/20/18 History Lansoprazole [Prevacid] 15 mg PO HS 01/09/18 08/20/18 History Menthol [Biofreeze] 1 applic TOPICAL BID PRN 01/09/18 08/20/18 History Montelukast Sodium [Singulair] 10 mg PO HS 01/09/18 08/20/18 History Lisinopril-Hctz 10-12.5 mg 1 tab PO HS 07/16/18 08/20/18 History [Zestoretic 10-12.5] Ranitidine HCl [Zantac] 150 mg PO HS PRN 07/16/18 08/20/18 History Allergies Allergy/AdvReac Type Severity Reaction Status Date / Time adhesive tape Allergy SKIN RED Verified 08/20/18 12:04 Sulfa (Sulfonamide AdvReac Unknown Verified 08/20/18 12:04 Antibiotics) Childhood sulfamethoxazole AdvReac "BLOOD IN Verified 08/20/18 12:04 [From Bactrim] EYES trimethoprim [From Bactrim] AdvReac "BLOOD IN Verified 08/20/18 12:04 EYES" Exam Osteopathic Statement: *. No significant issues noted on an osteopathic structural exam other than those noted in the History and Physical/Consult. HEENT: Within normal limits Heart: Regular rate and rhythm Lungs: Clear to auscultation bilaterally Abdomen: Soft, nontender Pelvic exam: Uterus is enlarged and slightly nodular with no adnexal masses palpated. Extremities: Negative Homans Assessment and Plan (1) Simple endometrial hyperplasia without atypia Status: Acute Code(s): N85.01 - BENIGN ENDOMETRIAL HYPERPLASIA SNOMED Code(s): 427728921 (2) Dysmenorrhea Status: Acute Code(s): N94.6 - DYSMENORRHEA, UNSPECIFIED SNOMED Code(s): 869121515 (3) Menorrhagia with irregular cycle Status: Acute Code(s): N92.1 - EXCESSIVE AND FREQUENT MENSTRUATION WITH IRREGULAR CYCLE SNOMED Code(s): 871248031 (4) Uterine leiomyoma Status: Acute Code(s): D25.9 - LEIOMYOMA OF UTERUS, UNSPECIFIED SNOMED Code(s): 19182802 Plan: Proceed with total abdominal hysterectomy with bilateral salpingo-oophorectomy. I have discussed the risks, benefits, and alternative therapies for the above- mentioned procedure and for both sedation/anesthesia as well as necessary blood products administration, if indicated, as they pertain to this patient. The patient has indicated her understanding and acceptance of the risks and procedures discussed.
[~2018-08-27 06:01] MED LIST changes: +MIDAZOLAM (PF) 2 MG/2 ML VIAL IV PRN; -MORPHINE SULFATE 4 MG/ML SYRINGE IV PRN; +SCOPOLAMINE 1.5MG/72HR PATCH TRANSDERM ONE; +ceFAZolin IN SWFI 2 GM/20 ML SYRINGE IVP ONE
[2018-08-27] MEDS ORDERED: LIDOCAINE 1% 20 ML VIAL (10MG/ML) FOR IV START INTRADERMA ONE (06:45)
[2018-08-27] MEDS ORDERED: fentaNYL (PF) 50 MCG/ML 2 ML AMP IV ONE (06:53)
[2018-08-27] MEDS ORDERED: ePHEDrine SULFATE/0.9% NACL/PF 50 MG/5 ML SYRINGE IV ONE (07:27)
[2018-08-27] MEDS ORDERED: MORPHINE SULFATE (PF) 0.3 MG/0.3 ML SYR ONE (07:27)
[2018-08-27] MEDS ORDERED: KETOROLAC 30 MG/ML 1 ML VIAL ONE (07:27)
[2018-08-27] MEDS ORDERED: SUCCINYLCHOLINE CHLORIDE 100 MG/5 ML SYR IV ONE (07:27)
[2018-08-27] MEDS ORDERED: LIDOCAINE 1% INJ 10MG/ML (20 ML MDV) ONE (07:27)
[2018-08-27] MEDS ORDERED: ROCURONIUM BROMIDE 10 MG/ML 10 ML VIAL IV ONE (07:27)
[2018-08-27] MEDS ORDERED: GLYCOPYRROLATE 0.2 MG/ML 2 ML VIAL ONE (07:27)
[2018-08-27] MEDS ORDERED: NEOSTIGMINE 1 MG/ML 10 ML VIAL ONE (07:27)
[2018-08-27] MEDS ORDERED: PROPOFOL 10 MG/ML 20 ML VIAL IV ONE (07:27)
[2018-08-27] MEDS ORDERED: fentaNYL (PF) 50 MCG/ML 2 ML AMP ONE (07:27)
[2018-08-27] MEDS ORDERED: MIDAZOLAM 2 MG/2 ML VIAL ONE (07:27)
[2018-08-27] MEDS ORDERED: HYDROcodone/APAP 5-325MG 1 EACH TAB PO PRN (07:46)
[2018-08-27] MEDS ORDERED: diphenhydrAMINE 50 MG/ML 1 ML VIAL IVP PRN (07:46)
[2018-08-27] MEDS ORDERED: ONDANSETRON 4 MG/2 ML VIAL IVP PRN (07:46)
[2018-08-27] MEDS ORDERED: FAMOTIDINE 20 MG TAB PO PRN (07:46)
[2018-08-27] MEDS ORDERED: ZOLPIDEM 5 MG TAB PO PRN (07:46)
[2018-08-27] MEDS ORDERED: LACTATED RINGERS 1,000 ML IV ONE ×2 (08:19)
--- NOTE | 2018-08-27 08:52 | P.OP ---
Date of Procedure: 08/27/18 Preoperative Diagnosis: Simple endometrial hyperplasia Dysmenorrhea Uterine fibroids Menorrhagia with irregular cycle Postoperative Diagnosis: Same Procedure(s) Performed: Total abdominal hysterectomy with bilateral salpingo-oophorectomy Anesthesia: GETA, spinal (Duramorph) Surgeon: Jessica Asencio Bi Report Developer #1: Robert Underwood Estimated Blood Loss (ml): 50 Pathology: other (Uterus with cervix and bilateral tubes and ovaries, exophytic fibroid) Condition: stable Disposition: floor Indications for Procedure: This is a 47-year-old female 0 who presents for total abdominal hysterectomy with bilateral salpingo-oophorectomy due to simple endometrial hyperplasia found on dilation and curettage. She underwent dilation and curettage with hysteroscopy in July 2018 due to menorrhagia and uterine fibroids. Endometrial ablation was unable to be completed due to irregular uterine contour. Menses are occurring every 3-4 weeks and lasting at least 10 days with at least 5-6 days very heavy with large clots and cramping. Her pelvic ultrasound showed uterus measuring 13 x 6.4 x 8.9 cm with at least 2 fibroids the largest of which was 4.9 cm. Both ovaries appeared normal. Operative Findings: Uterus is slightly enlarged and bulky with fibroids in addition to an anterior left exophytic fibroid. Both tubes and ovaries appeared normal. The left tube and ovary were slightly adherent to the posterior fossa. Appendix was visualized and appeared normal. Description of Procedure: The patient is taken to the operating room where she is placed in the dorsal supine position. She is prepped and draped in the normal sterile fashion including Hall catheter insertion and vaginal prep. A Pfannenstiel skin incision is made with a scalpel. A second knife was used to carry the incision down to the underlying layer of fascia. The fascia was nicked in the midline with a scalpel and then extended laterally bilaterally with Monahan scissors. The superior aspect of the fascial incision was grasped with Tavo clamps, elevated off the underlying rectus muscle in the midline and then cut with Monahan scissors. The inferior aspect of the fascial incision was grasped with Tavo clamps, elevated off the underlying rectus muscle in the midline and then cut with Monahan scissors. Next the peritoneum was identified and entered sharply with Monahan scissors. It is extended superiorly and inferiorly with Metzenbaum scissors with good visualization of underlying structures. Next the [place] retractor is placed and the bladder blade was inserted. The bowels were packed with a moist 3 yard laparotomy sponge. Next the uterus is brought up incision and the corneal regions are grasped with Leticia clamps on both sides. The infundibulopelvic ligament was clamped on either side with a Kaye clamp, cut with Monahan scissors, and sutured with 0 Vicryl suture in Kaye transfixion stitches. The remaining uterine ovarian ligament and round ligament was clamped on either side with a Kaye clamp, cut with Monahan scissors, and sutured with 0 Vicryl suture in Kaye transfixion stitches. The vesicouterine peritoneum was sharply dissected away from the bladder with Metzenbaum scissors and pushed inferiorly. There was noted to be an exophytic anterior fibroid on the left side. The uterine arteries are clamped on either side with a Kaye clamp. The uterine arteries are then cut with Monahan scissors, and sutured with 0 Vicryl suture in Kaye transfixion stitches. The exophytic fibroid was then dissected away from other structures and Bovie was used to remove it from its stalk on the cervical portion of the uterus. This was removed from the field for better visualization. Next the cardinal ligaments were clamped on either side with Kaye clamp, cut with Monahan scissors, and sutured with 0 Vicryl suture in Kaye transfixion stitches. The uterosacral ligaments are clamped on either side with Kaye clamps, cut with Monahan scissors, and sutured with 0 Vicryl suture in Kaye transfixion stitches on either side. The edges of the vaginal cuff were clamped on either side with a Kaye clamp, cut with Monahan scissors, and sutured with 0 Vicryl suture in Kaye transfixion stitches and held on either side. The vaginal mucosa was then cut just below the level of the cervix and the specimen is removed from the field. The edges of the vaginal cuff were held with Tavo clamps. Next the previously held corners of each side of the vaginal cuff were then whipstitched along the connective tissue on either side and brought through the corner of the cuff and tied. Next the vaginal cuff was sutured with 0 Vicryl suture in a running locked fashion. Good hemostasis was noted. Copious irrigation is carried out with warm saline. Excellent hemostasis is noted. All sponges are removed from the abdomen and sponge counts are correct. The peritoneum is then closed with 0 Vicryl suture in a running fashion. The muscle was then reapproximated with 0 Vicryl suture in interrupted fashion. The fascia layer is then closed with 0 PDS suture in a running fashion with the knots buried on either side and in the midline. Next the subcutaneous tissues closed with 2-0 Vicryl suture in a running fashion. The skin is closed with rivas. All sponge and needle counts are correct and the patient is taken to recovery room in stable condition.
[2018-08-27] MEDS ORDERED: NALOXONE 0.4 MG/ML 1 ML VIAL IV PRN (09:09)
[2018-08-27] MEDS ORDERED: NALBUPHINE 10 MG/ML (1 ML AMP) IV PRN (09:09)
[2018-08-27] MEDS: HYDROmorphone 0.5 MG/0.5 ML SYRINGE IVP PRN ×2 (09:28→09:34)
[2018-08-27 10:30] VITALS: BMI 43.7
[2018-08-27] MEDS: SENNOSIDES-DOCUSATE SODIUM 1 EACH TAB PO SCH ×2 (10:40→20:38)
[2018-08-27] MEDS: LACTATED RINGERS 1,000 ML IV SCH ×3 (10:40→20:33)
[2018-08-27] MEDS: KETOROLAC 30 MG/ML 1 ML VIAL IVP PRN ×2 (18:00→23:29)
[2018-08-27] MEDS ORDERED: LACTATED RINGERS 500 ML IV ONE (21:00)
[2018-08-27] MEDS: LISINOPRIL-HCTZ 10-12.5 MG 1 EACH TAB PO SCH (21:08)
[2018-08-27] MEDS: MONTELUKAST 10 MG TAB PO SCH (21:56)
[2018-08-27] MEDS: PANTOPRAZOLE 40 MG TABLET PO SCH (21:56)
[2018-08-28] MEDS: LACTATED RINGERS 1,000 ML IV SCH (01:17)
[2018-08-28] MEDS: KETOROLAC 30 MG/ML 1 ML VIAL IVP PRN (06:40)
[2018-08-28] MEDS ORDERED: ACETAMINOPHEN TAB 325 MG TAB PO PRN (07:38)
[2018-08-28 07:43] LABS: Basophils % (A) 0 %; Eosinophils % (A) 0 %; HCT 25.6 % (34.0-46.0); Hypochromasia Moderate; Lymphocytes # (A) 1.5 k/uL (1.0-4.8); Lymphocytes % (A) 13 %; MCH 26.7 pg (25.0-35.0); MCHC 31.4 g/dL (31.0-37.0); MCV 85.1 fL (80.0-100.0); Monocytes # (A) 0.5 k/uL (0-1.0); Monocytes % (A) 4 %; Neutrophils # (A) 8.8 k/uL (1.3-7.7); Neutrophils % (A) 81 %; Platelet Count 335 k/uL (150-450); Poikilocytosis Slight; RBC 3.01 m/uL (3.80-5.40); WBC 10.9 k/uL (3.8-10.6)
--- NOTE | 2018-08-28 08:43 | P.PN ---
Subjective Progress Note Date: 08/28/18 Principal diagnosis: Status post JANNET/BSO postoperative day #1 Patient is doing better this morning. She has ambulated a few times. She did have some decreased urine output earlier in the day yesterday but this did resolve after 2 fluid boluses. She denies any vaginal bleeding. Her catheter was removed this morning and she has not urinated yet. She denies any flatus or bowel movement yet. Pain is fairly well controlled at this time. She complains of some chest pressure but no shortness of breath or difficulty breathing. Objective - Vital Signs Vital signs: Vital Signs Temp 98.3 F 08/27/18 23:35 Pulse 67 08/28/18 05:25 Resp 15 08/28/18 05:25 BP 97/55 08/28/18 05:25 Pulse Ox 86 L 08/28/18 08:25 Intake & Output 08/27/18 08/28/18 08/28/18 18:59 06:59 18:59 Intake Total 1850 Output Total 400 1275 Balance 1450 -1275 Intake: IV 1450 Intake, IV Titration 400 Amount Lactated Ringers 1,000 ml 400 @ 100 mls/hr IV .Q10H BERNIE Rx#:[id number] Output: Urine 325 1275 Uretheral (Hall) 20 1275 Estimated Blood Loss 75 - Constitutional General appearance: Present: no acute distress - Gastrointestinal Gastrointestinal Comment(s): Incision is clean dry and intact with rivas in place. General gastrointestinal: Present: normal bowel sounds - Labs CBC & Chem 7: 08/28/18 07:02 Labs: Abnormal Lab Results - Last 24 Hours (Table) 08/28/18 Range/Units 07:02 WBC 10.9 H (3.8-10.6) k/uL RBC 3.01 L (3.80-5.40) m/uL Hgb 8.0 L D (11.4-16.0) gm/dL Hct 25.6 L (34.0-46.0) % Neutrophils # 8.8 H (1.3-7.7) k/uL Assessment and Plan Assessment: Status post JANNET/BSO postoperative day #1 (1) Simple endometrial hyperplasia without atypia Current Visit: No Status: Acute Code(s): N85.01 - BENIGN ENDOMETRIAL HYPERPLASIA SNOMED Code(s): 824486777 (2) Dysmenorrhea Current Visit: No Status: Acute Code(s): N94.6 - DYSMENORRHEA, UNSPECIFIED SNOMED Code(s): 578482666 (3) Menorrhagia with irregular cycle Current Visit: No Status: Acute Code(s): N92.1 - EXCESSIVE AND FREQUENT MENSTRUATION WITH IRREGULAR CYCLE SNOMED Code(s): 453702729 (4) Uterine leiomyoma Current Visit: No Status: Acute Code(s): D25.9 - LEIOMYOMA OF UTERUS, UNSPECIFIED SNOMED Code(s): 09894695 Plan: We'll continue with postoperative care. Encouraged ambulation. Will switch to oral pain medications today. I will repeat CBC again tomorrow morning due to her hemoglobin dropped to 8. Will advance diet as tolerated after flatus.
--- NOTE | 2018-08-28 09:51 | P.PN ---
Progress Note - Text Progress Note Date: 08/28/18 Postoperative day 1 status post total abdominal hysterectomy, and intrathecal morphine given for postoperative analgesia, patient doing well, there is no anesthesia related complications, Patient had no headache, vital signs stable , Assessment and plan= postop day 1 , doing well there is no anesthesia related complication.
[2018-08-28] MEDS: IBUPROFEN 600 MG TAB PO PRN ×3 (10:09→21:57)
[2018-08-28] MEDS: HYDROcodone/APAP 7.5-325MG 1 EACH TAB PO PRN ×2 (12:52→19:07)
[2018-08-28] MEDS: SIMETHICONE 80 MG CHEWABLE PO PRN ×2 (14:36→19:08)
[2018-08-28] MEDS: SENNOSIDES-DOCUSATE SODIUM 1 EACH TAB PO SCH ×2 (18:59→21:22)
[2018-08-28] MEDS: MONTELUKAST 10 MG TAB PO SCH (21:04)
[2018-08-28] MEDS: PANTOPRAZOLE 40 MG TABLET PO SCH (21:04)
[2018-08-28] MEDS: LISINOPRIL-HCTZ 10-12.5 MG 1 EACH TAB PO SCH (21:04)
[2018-08-29] MEDS: HYDROcodone/APAP 7.5-325MG 1 EACH TAB PO PRN ×4 (01:03→21:45)
[2018-08-29] MEDS: KETOROLAC 30 MG/ML 1 ML VIAL IVP PRN (03:31)
[2018-08-29 07:00] LABS: Basophils % (A) 0 %; Eosinophils # (A) 0.1 k/uL (0-0.7); Eosinophils % (A) 1 %; HCT 24.1 % (34.0-46.0); HGB 7.5 gm/dL (11.4-16.0); Hypochromasia Moderate; Lymphocytes # (A) 2.1 k/uL (1.0-4.8); Lymphocytes % (A) 32 %; MCH 26.8 pg (25.0-35.0); MCHC 31.3 g/dL (31.0-37.0); MCV 85.7 fL (80.0-100.0); Mean Platelet Volume 6.7; Monocytes # (A) 0.4 k/uL (0-1.0); Monocytes % (A) 6 %; Neutrophils % (A) 59 %; Platelet Count 279 k/uL (150-450); RBC 2.81 m/uL (3.80-5.40); RDW 14.6 % (11.5-15.5); WBC 6.8 k/uL (3.8-10.6)
[2018-08-29] MEDS: SENNOSIDES-DOCUSATE SODIUM 1 EACH TAB PO SCH ×3 (08:29→21:15)
--- NOTE | 2018-08-29 09:04 | P.PN ---
Subjective Progress Note Date: 08/29/18 Principal diagnosis: Status post JANNET/BSO postoperative day #2 Patient is doing better. She is ambulating and urinating without difficulty. She denies any dizziness or shortness of breath. She did pass a little bit of flatus but no bowel movement yet. She is tolerating regular food. She denies any vaginal bleeding. She did have a little more pain through the night and was given a Toradol at 1 AM. Objective - Vital Signs Vital signs: Vital Signs Temp 98.0 F 08/29/18 08:00 Pulse 72 08/29/18 08:00 Resp 18 08/29/18 08:00 BP 93/56 08/29/18 08:00 Pulse Ox 97 08/29/18 08:00 Intake & Output 08/28/18 08/29/18 08/29/18 18:59 06:59 18:59 Output Total 600 Balance -600 Output: Urine 600 Other: # Voids 1 1 - Constitutional General appearance: Present: no acute distress - Gastrointestinal Gastrointestinal Comment(s): Incision is clean dry and intact with rivas in place General gastrointestinal: Present: normal bowel sounds - Musculoskeletal Musculoskeletal Comment(s): Negative Homans - Labs CBC & Chem 7: 08/29/18 06:25 Labs: Abnormal Lab Results - Last 24 Hours (Table) 08/29/18 Range/Units 06:25 RBC 2.81 L (3.80-5.40) m/uL Hgb 7.5 L (11.4-16.0) gm/dL Hct 24.1 L (34.0-46.0) % Assessment and Plan Assessment: Status post JANNET/BSO postoperative day #2, postoperative blood loss anemia- stable. (1) Simple endometrial hyperplasia without atypia Current Visit: No Status: Acute Code(s): N85.01 - BENIGN ENDOMETRIAL HYPERPLASIA SNOMED Code(s): 452056037 (2) Dysmenorrhea Current Visit: No Status: Acute Code(s): N94.6 - DYSMENORRHEA, UNSPECIFIED SNOMED Code(s): 109091425 (3) Menorrhagia with irregular cycle Current Visit: No Status: Acute Code(s): N92.1 - EXCESSIVE AND FREQUENT MENSTRUATION WITH IRREGULAR CYCLE SNOMED Code(s): 782291638 (4) Uterine leiomyoma Current Visit: No Status: Acute Code(s): D25.9 - LEIOMYOMA OF UTERUS, UNSPECIFIED SNOMED Code(s): 79486414 Plan: Will continue with postoperative care 1 more day. Patient encouraged to ambulate. Will switch to oral Motrin and [place] today. Advised that we will start her on Slow Fe at home after she starts having bowel movements.
[2018-08-29] MEDS: IBUPROFEN 600 MG TAB PO PRN ×2 (12:55→19:31)
[2018-08-29] MEDS: LISINOPRIL-HCTZ 10-12.5 MG 1 EACH TAB PO SCH (21:14)
[2018-08-29] MEDS: PANTOPRAZOLE 40 MG TABLET PO SCH (21:16)
[2018-08-29] MEDS: MONTELUKAST 10 MG TAB PO SCH (21:16)
[2018-08-30] MEDS: IBUPROFEN 600 MG TAB PO PRN ×2 (01:38→09:01)
--- NOTE | 2018-08-30 08:28 | P.DS ---
Providers Date of admission: 08/27/18 06:01 Expected date of discharge: 08/30/18 Attending physician: Jessica Asencio Primary care physician: Selina Carpenter - Discharge Diagnosis(es) (1) Simple endometrial hyperplasia without atypia Current Visit: No Status: Acute (2) Dysmenorrhea Current Visit: No Status: Acute (3) Menorrhagia with irregular cycle Current Visit: No Status: Acute (4) Uterine leiomyoma Current Visit: No Status: Acute Hospital Course: This is a 47-year-old female who underwent a total abdominal hysterectomy with bilateral salpingo-oophorectomy on 08/27/2018. Postoperatively she did have some lower blood pressures and low urine output for the first evening. This did resolve. Her hemoglobin did drop to 8 and then 7.5 the next day. She has had no active bleeding. She is passing flatus but no bowel movement yet. She is urinating without difficulty. Her pain is fairly well controlled with ibuprofen and Colora. She is tolerating regular diet. Vital signs are stable at this time. Abdomen is soft with positive bowel sounds 4. Incision is clean dry and intact with rivas in place. Extremities show negative Homans. Impression is status post total abdominal hysterectomy with bilateral submental nephrectomy postoperative day #3. Plan is to discharge home today. Routine postoperative instructions are given. She is advised follow-up in the office in approximately 1 week for a postoperative check. She is encouraged to start taking Slow Fe iron supplement. She will be given a prescription for ibuprofen and Colora. Maps is checked. She is advised to call the office if she has any further questions or concerns prior to her appointment time. Procedures: Total abdominal hysterectomy with bilateral salpingo-oophorectomy on 08/27/2018 Patient Condition at Discharge: Stable Plan - Discharge Summary Discharge Rx Participant: Yes New Discharge Prescriptions: New Ibuprofen [Motrin] 600 mg PO Q6HR PRN #60 tab PRN Reason: Mild Discomfort HYDROcodone/APAP 7.5-325MG [Colora 7.5-325] 1 each PO Q6H PRN #28 tab PRN Reason: Moderate To Severe Pain Ferrous Sulfate [Slow Fe] 142 mg PO DAILY #30 tablet.er Continue Montelukast Sodium [Singulair] 10 mg PO HS Lansoprazole [Prevacid] 15 mg PO HS Menthol [Biofreeze] 1 applic TOPICAL BID PRN PRN Reason: Inflammation Ranitidine HCl [Zantac] 150 mg PO HS PRN PRN Reason: Heartburn Lisinopril-Hctz 10-12.5 mg [Zestoretic 10-12.5] 1 tab PO HS Discontinued Ferrous Sulfate [Iron] 325 mg PO DAILY PRN PRN Reason: WITH MENSTUAL CYCLE Discharge Medication List Lansoprazole [Prevacid] 15 mg PO HS 01/09/18 [History] Menthol [Biofreeze] 1 applic TOPICAL BID PRN 01/09/18 [History] Montelukast Sodium [Singulair] 10 mg PO HS 01/09/18 [History] Lisinopril-Hctz 10-12.5 mg [Zestoretic 10-12.5] 1 tab PO HS 07/16/18 [History] Ranitidine HCl [Zantac] 150 mg PO HS PRN 07/16/18 [History] Ferrous Sulfate [Slow Fe] 142 mg PO DAILY #30 tablet.er 08/30/18 [Rx] HYDROcodone/APAP 7.5-325MG [Colora 7.5-325] 1 each PO Q6H PRN #28 tab 08/30/18 [Rx] Ibuprofen [Motrin] 600 mg PO Q6HR PRN #60 tab 08/30/18 [Rx] Follow up Appointment(s)/Referral(s): Jessica Asencio DO [Doctor of Osteopathic Medicine] - 1 Week Activity/Diet/Wound Care/Special Instructions: Light activity. No heavy lifting. May shower, but no tub baths for 1 week. No intercourse for [address] no longer taking narcotics. Discharge Disposition: HOME SELF-CARE
[2018-08-30] MEDS: SENNOSIDES-DOCUSATE SODIUM 1 EACH TAB PO SCH (09:01)
[2018-08-30 12:43] VITALS: BP 134/78; PULSE 77; RESP 16; TEMP 97.8
== END 2018-08-30 10:00 | disposition home or self-care (01) | DRG 743 ==
LOC: 2ORMAIN 06:01 → 4FBP 09:01
PROVIDERS: ADMIT Obstetrics & Gynecology; ATTEND Obstetrics & Gynecology
PROC: 0UT90ZZ Resection of Uterus, Open Approach (ICD-10-PCS; principal; 2018-08-27 07:30)
PROC: 0UT70ZZ Resection of Bilateral Fallopian Tubes, Open Approach (ICD-10-PCS; principal; 2018-08-27 07:30)
PROC: 0UT20ZZ Resection of Bilateral Ovaries, Open Approach (ICD-10-PCS; principal; 2018-08-27 07:30)
DX: N85.01 Benign endometrial hyperplasia (principal); D25.9 Leiomyoma of uterus, unspecified; I10 Essential (primary) hypertension; J45.909 Unspecified asthma, uncomplicated; K21.9 Gastro-esophageal reflux disease without esophagitis; N92.0 Excessive and frequent menstruation with regular cycle; Z79.899 Other long term (current) drug therapy; Z82.49 Family history of ischemic heart disease and other diseases of the circulatory system; Z79.51 Long term (current) use of inhaled steroids; Z88.2 Allergy status to sulfonamides; Z88.8 Allergy status to other drugs, medicaments and biological substances
CPT/HCPCS: 81025; 85025; 86850; 86900; 86901; 88307; 94760

== ENCOUNTER → 2019-01-30 | Outpatient (CLI) | payer OTHER ==
[2019-01-30 10:00] LABS: Basophils % (A) 1 %; Eosinophils # (A) 0.1 k/uL (0-0.7); Eosinophils % (A) 1 %; HCT 40.3 % (34.0-46.0); HGB 13.4 gm/dL (11.4-16.0); Lymphocytes # (A) 1.8 k/uL (1.0-4.8); Lymphocytes % (A) 29 %; MCH 28.5 pg (25.0-35.0); MCHC 33.2 g/dL (31.0-37.0); MCV 85.7 fL (80.0-100.0); Mean Platelet Volume 6.4; Monocytes # (A) 0.3 k/uL (0-1.0); Monocytes % (A) 5 %; Neutrophils # (A) 3.8 k/uL (1.3-7.7); Neutrophils % (A) 62 %; Platelet Count 338 k/uL (150-450); RBC 4.71 m/uL (3.80-5.40); RDW 14.9 % (11.5-15.5); WBC 6.2 k/uL (3.8-10.6)
[2019-01-30 17:14] LABS: Albumin 4.4 g/dL (3.80-4.90); Albumin/Globulin Ratio 2.32 (1.60-3.17); BUN/Creat Ratio 16.25 Ratio (12.00-20.00); Calcium 9.6 mg/dL (8.7-10.3); Chol/HDL Ratio 4.3; Globulin 1.9 g/dL (1.6-3.3); LDL Cholesterol,Calculated 150.6 mg/dL (0.0-131.0); Potassium 4.2 mmol/L (3.5-5.5); Total Bilirubin 0.3 mg/dL (0.2-1.2); Total Protein 6.3 g/dL (6.2-8.2); VLDL Calculation 27.4 mg/dL (5.00-40.00)
[2019-01-30 17:19] LABS: Iron Saturation 10.23 (12.00-45.00)
[2019-01-30 17:27] LABS: Vitamin D 25 Hydroxy 54.8 ng/mL (30.0-100.0)
[2019-01-30 17:33] LABS: Ferritin 17.7 ng/mL (10.0-291.0)
[2019-01-30 19:44] LABS: Hemoglobin A1C 5.9 % (4.0-6.0)
== END | disposition home or self-care (01) ==
LOC: LABWHC1 09:11
PROVIDERS: ATTEND Family Medicine
DX: Z00.00 Encounter for general adult medical examination without abnormal findings (principal); E55.9 Vitamin D deficiency, unspecified; R73.03 Prediabetes; E05.90 Thyrotoxicosis, unspecified without thyrotoxic crisis or storm; Z86.2 Personal history of diseases of the blood and blood-forming organs and certain disorders involving the immune mechanism
CPT/HCPCS: 36415; 80053; 80061; 82306; 82728; 83036; 83540; 83550; 84443; 85025

== ENCOUNTER → 2019-10-23 | Outpatient (CLI) | payer OTHER ==
--- NOTE | 2019-10-23 14:12 | US ---
EXAMINATION TYPE: US kidneys/renal and bladder DATE OF EXAM: 10/23/2019 COMPARISON: CT January 28, 2018 CLINICAL HISTORY: R10.11 Abdominal Pain RUQ, N20.0 Kidney stone. Pt states right flank pain, pt state s recent pelvic surgery/hysterectomy EXAM MEASUREMENTS: Right Kidney: 11.9 x 4.6 x 5.6 cm Left Kidney: 10.3 x 5.3 x 5.8 cm Large pt body habitus Right Kidney: No evidence of hydro, lateral mid echogenic collection= 1.7 cm ? Left Kidney: Appeared wnl Bladder: wnl Bilateral Jets seen: No There is no evidence for hydronephrosis at this point in time. No nephrolithiasis is seen. There is poor visualization of roughly 2.0 cm thin-walled cyst laterally right kidney midpole level, technolog ist garner the increase through transmission. The urinary bladder is satisfactorily distended. Bilate ral ureteral jets are not seen. IMPRESSION: No hydronephrosis is noted bilaterally.
== END | disposition home or self-care (01) ==
LOC: RADUSWWP 12:19
PROVIDERS: ATTEND Family Medicine
DX: R10.11 Right upper quadrant pain (principal); N20.0 Calculus of kidney
CPT/HCPCS: 76770

== ENCOUNTER → 2019-11-21 | Outpatient (CLI) | payer OTHER ==
--- NOTE | 2019-11-21 13:44 | XR ---
EXAMINATION TYPE: XR thoracic spine complete DATE OF EXAM: 11/21/2019 CLINICAL HISTORY: pain TECHNIQUE: Frontal, lateral, and swimmer's view of thoracic spine are obtained. COMPARISON: None. FINDINGS: Thoracic spine show satisfactory alignment without evidence of acute fracture or dislocatio n. Vertebral body heights are preserved. Moderate degenerative disc space narrowing and spondylosis. Visualized ribs are unremarkable. IMPRESSION: No acute fracture or dislocation is seen in the thoracic spine. ICD 10 NO FRACTURE, INIT IAL EVALUATION
== END | disposition home or self-care (01) ==
LOC: RADXRMAIN 12:29
PROVIDERS: ATTEND Family Medicine
DX: M54.6 Pain in thoracic spine (principal)
CPT/HCPCS: 72072

== ENCOUNTER → 2019-11-26 | Outpatient (CLI) | payer OTHER ==
[2019-11-26 10:27] LABS: Basophils % (A) 1 %; Eosinophils # (A) 0.1 k/uL (0-0.7); Eosinophils % (A) 1 %; HCT 42.2 % (34.0-46.0); HGB 14.1 gm/dL (11.4-16.0); Lymphocytes # (A) 1.7 k/uL (1.0-4.8); Lymphocytes % (A) 24 %; MCH 31.9 pg (25.0-35.0); MCHC 33.5 g/dL (31.0-37.0); MCV 95.2 fL (80.0-100.0); Mean Platelet Volume 6.9; Monocytes # (A) 0.3 k/uL (0-1.0); Monocytes % (A) 5 %; Neutrophils # (A) 4.7 k/uL (1.3-7.7); Neutrophils % (A) 68 %; Platelet Count 282 k/uL (150-450); RBC 4.43 m/uL (3.80-5.40); RDW 12.9 % (11.5-15.5); WBC 6.9 k/uL (3.8-10.6)
[2019-11-26 16:44] LABS: % Iron Saturation 23.77 (12.00-45.00); African American GFR (CKD) 117.9 (60.0-200.0); Albumin 4.2 g/dL (3.80-4.90); Anion Gap 8.8 mmol/L (4.00-12.00); Calcium 9.6 mg/dL (8.7-10.3); Carbon Dioxide 30.2 mmol/L (21.6-31.8); Chol/HDL Ratio 3.89; Globulin 2.1 g/dL (1.6-3.3); Non-African American GFR(CKD) 101.7 (60.0-200.0); Potassium 4.1 mmol/L (3.5-5.5); Total Bilirubin 0.5 mg/dL (0.3-1.2); Total Protein 6.3 g/dL (6.2-8.2)
[2019-11-26 16:51] LABS: T4, Free (Free Thyroxine) 1.1 ng/dL (0.80-1.80)
[2019-11-26 16:52] LABS: Ferritin 94.5 ng/mL (10.0-291.0)
[2019-11-26 21:30] LABS: Hemoglobin A1C 5.9 % (4.0-6.0)
== END | disposition home or self-care (01) ==
LOC: LABWHC1 09:11
PROVIDERS: ATTEND Family Medicine
DX: E55.9 Vitamin D deficiency, unspecified (principal); I10 Essential (primary) hypertension; E05.90 Thyrotoxicosis, unspecified without thyrotoxic crisis or storm; R73.03 Prediabetes; Z86.2 Personal history of diseases of the blood and blood-forming organs and certain disorders involving the immune mechanism
CPT/HCPCS: 36415; 80053; 80061; 82306; 82728; 83036; 83540; 83550; 84439; 84443; 85025

== ENCOUNTER → 2019-11-28 | Outpatient (CLI) | payer OTHER ==
--- NOTE | 2019-12-04 10:10 | MM ---
Reason for exam: screening (asymptomatic). Last mammogram was performed 1 year and 4 months ago. History: Patient is postmenopausal and is nulliparous. Family history of premenopausal breast cancer in maternal aunt at age 65 and breast cancer in maternal aunt. Physical Findings: A clinical breast exam by your physician is recommended on an annual basis and results should be correlated with mammographic findings. MG Screening Mammo w CAD Bilateral CC and MLO view(s) were taken. Prior study comparison: July 17, 2018, bilateral MG screening mammo w CAD. March 14, 2017, bilateral MG screening mammo w CAD. There are scattered fibroglandular densities. Stable benign calcifications. There is no discrete abnormality. No significant changes when compared with prior studies. ASSESSMENT: Benign, BI-RAD 2 RECOMMENDATION: Routine screening mammogram of both breasts in 1 year.
== END | disposition home or self-care (01) ==
LOC: RADMAMWWP 13:35
PROVIDERS: ATTEND Family Medicine
DX: Z12.31 Encounter for screening mammogram for malignant neoplasm of breast (principal)
CPT/HCPCS: 77067

== ENCOUNTER → 2019-12-26 | Outpatient (CLI) | payer OTHER ==
--- NOTE | 2019-12-28 08:57 | MR ---
EXAMINATION TYPE: MR thoracic spine wo con DATE OF EXAM: 12/26/2019 COMPARISON: Thoracic spine x-ray November 21, 2019. HISTORY: Severe middle back pain into side for 1 to 2 years per patient TECHNIQUE: Multiplanar, multisequence imaging of thoracic spine is performed without contrast FINDINGS: Spinal cord cord shows normal course, caliber, and signal as it courses the thoracic spine. Vertebral body heights and alignment are satisfactory. Note is made of grade 1 retrolisthesis C6 on C7 on sagittal T2, and sequence. Disc space heights are fairly well maintained. Moderate to severe m ultilevel anterior and lateral spurring in the mid to lower thoracic spine is better appreciated on p gerri films versus MRI. Tiny multilevel posterior disc herniation seen on sagittal images minimally ef facing the anterior thecal sac. Review of the axial images confirm no large focal disc herniation. Paraspinal muscle bulk is preserve d. Visualized thorax and upper abdomen show no suspicious abnormality. IMPRESSION: Multilevel moderate to severe spurring mid to lower thoracic spine. Multilevel tiny poste rior disc herniations minimally effacing the anterior thecal sac
== END | disposition home or self-care (01) ==
LOC: RADMRIMAIN 21:25
PROVIDERS: ATTEND Family Medicine
DX: M51.24 Other intervertebral disc displacement, thoracic region (principal)
CPT/HCPCS: 72146

== ENCOUNTER → 2020-09-10 | Outpatient (CLI) | payer BC ==
[2020-09-10 20:43] LABS: Hemoglobin A1C 5.6 % (4.0-6.0)
[2020-09-10 21:06] LABS: African American GFR (CKD) 117.9 (60.0-200.0); Albumin 4.3 g/dL (3.80-4.90); Albumin/Globulin Ratio 2.05 (1.60-3.17); Anion Gap 11.4 mmol/L (4.00-12.00); BUN/Creat Ratio 17.14 Ratio (12.00-20.00); Calcium 9.5 mg/dL (8.7-10.3); Carbon Dioxide 29.6 mmol/L (21.6-31.8); Chol/HDL Ratio 5.02; Globulin 2.1 g/dL (1.6-3.3); LDL Cholesterol,Calculated 136.6 mg/dL (0.0-131.0); Non-African American GFR(CKD) 101.7 (60.0-200.0); Potassium 4.1 mmol/L (3.5-5.5); Total Bilirubin 0.7 mg/dL (0.2-1.2); Total Protein 6.4 g/dL (6.2-8.2); VLDL Calculation 44.4 mg/dL (5.00-40.00)
[2020-09-10 21:14] LABS: T4, Free (Free Thyroxine) 1.2 ng/dL (0.80-1.80)
== END | disposition home or self-care (01) ==
LOC: LABWHC1 07:55
PROVIDERS: ATTEND Family Medicine
DX: E05.90 Thyrotoxicosis, unspecified without thyrotoxic crisis or storm (principal); I10 Essential (primary) hypertension; E55.9 Vitamin D deficiency, unspecified; R73.03 Prediabetes
CPT/HCPCS: 36415; 80053; 80061; 82306; 83036; 84439; 84443

== ENCOUNTER → 2021-02-25 | Outpatient (CLI) | payer BC ==
--- NOTE | 2021-02-25 08:59 | XR ---
EXAM TYPE: LUMBAR SPINE X RAY SERIES COMPARISON: NONE HISTORY: Pain TECHNIQUE: 4 views are submitted. FINDINGS: Alignment is anatomic. The pedicles are intact. The transverse processes are intact. There is no s pondylolysis or spondylolisthesis. Moderate to severe degenerative disc disease T12-L1, L1-L2 and L2 -L3. Facet arthropathy at levels L3-S1. IMPRESSION: 1. Multilevel moderate to severe degenerative disc disease.
[2021-02-25 12:11] LABS: Basophils # (A) 0.02 X 10*3/uL (0.00-0.10); Basophils % (A) 0.3 %; Eosinophils # (A) 0.07 X 10*3/uL (0.04-0.35); Eosinophils % (A) 1.2 %; HCT 40.5 % (37.2-46.3); HGB 13.4 g/dL (12.0-15.0); Lymphocytes # (A) 1.59 X 10*3/uL (0.90-5.00); Lymphocytes % (A) 26.4 %; MCHC 33.1 g/dL (32.0-37.0); MCV 90.8 fL (80.0-97.0); Mean Platelet Volume 9.7 fL (9.5-12.2); Monocytes # (A) 0.36 X 10*3/uL (0.20-1.00); Neutrophils # (A) 3.97 X 10*3/uL (1.80-7.70); Neutrophils % (A) 65.8 %; Platelet Count 293 X 10*3/uL (140-440); RBC 4.46 X 10*6/uL (4.10-5.20); RDW 12.5 % (11.5-14.5); WBC 6.03 X 10*3/uL (4.50-10.00)
[2021-02-25 13:14] LABS: African American GFR (CKD) 117.1 (60.0-200.0); Albumin 4.2 g/dL (3.8-4.9); Albumin/Globulin Ratio 1.68 (1.60-3.17); Anion Gap 15.3 mmol/L (4.00-12.00); BUN/Creat Ratio 14.29 Ratio (12.00-20.00); Calcium 9.3 mg/dL (8.7-10.3); Carbon Dioxide 23.7 mmol/L (21.6-31.8); Chol/HDL Ratio 4.47 Ratio; Globulin 2.5 g/dL (1.6-3.3); LDL Cholesterol,Calculated 148.2 mg/dL (0.0-131.0); Potassium 3.9 mmol/L (3.5-5.5); Total Bilirubin 0.6 mg/dL (0.30-1.20); Total Protein 6.7 g/dL (6.2-8.2); VLDL Calculation 28.8 mg/dL (5.00-40.00)
== END | disposition home or self-care (01) ==
LOC: LABWHC1 07:25
PROVIDERS: ATTEND Family Medicine
DX: E05.90 Thyrotoxicosis, unspecified without thyrotoxic crisis or storm (principal); E55.9 Vitamin D deficiency, unspecified; E66.01 Morbid (severe) obesity due to excess calories; R73.03 Prediabetes; J45.20 Mild intermittent asthma, uncomplicated; M51.36 Other intervertebral disc degeneration, lumbar region; Z86.2 Personal history of diseases of the blood and blood-forming organs and certain disorders involving the immune mechanism
CPT/HCPCS: 36415; 72100; 80053; 80061; 82306; 83036; 84443; 85025

== ENCOUNTER → 2021-03-30 | Outpatient (CLI) | payer BC ==
--- NOTE | 2021-03-30 08:58 | MR ---
EXAMINATION TYPE: MR lumbar spine wo con DATE OF EXAM: 03/30/2021 COMPARISON: Lumbar spine x-ray February 25, 2011. HISTORY: Lumbar radiculopathy per order, chronic pain for years. TECHNIQUE: Multiplanar, multisequence imaging of the lumbar spine is performed without IV contrast. FINDINGS: Sagittal images of the lumbar spine show vertebral body heights and alignment to remain sat isfactory. Multilevel disc desiccation. Moderate disc space narrowing with mild to moderate anterior spurring L2-L3 level. The conus medullaris is normal in position and signal ending mid L1 level. Some heterogeneous Modic type II endplate change anterior superior L3 level. Axial images show mild to moderate multilevel facet arthropathy greatest at L4-L5 level. No significa nt disc herniation or spinal canal effacement. Bilateral neural foramina remain patent at all lumbar levels. Paraspinal muscle bulk is preserved. IMPRESSION: Focal degenerative change L2-L3 level. No large disc herniation to account for patient's radiculopathy type symptoms.
== END | disposition home or self-care (01) ==
LOC: RADMRIMAIN 08:15
PROVIDERS: ATTEND Family Medicine
DX: M47.26 Other spondylosis with radiculopathy, lumbar region (principal)
CPT/HCPCS: 72148

== ENCOUNTER 2021-04-26 13:52 | Emergency (ER) | payer BC ==
[2021-04-26] MEDS ORDERED: ACETAMINOPHEN TAB 500 MG TAB PO STA (14:30)
[2021-04-26] MEDS ORDERED: IBUPROFEN 600 MG TAB PO STA (14:31)
[2021-04-26] MEDS ORDERED: SODIUM CHLORIDE 0.9% 1,000 ML IV ONE (16:54)
[2021-04-26] MEDS ORDERED: DEXAMETHASONE SOD PHOSPHATE 10 MG/ML 1 ML VIAL IVP STA (16:55)
[2021-04-26] MEDS ORDERED: SODIUM CHLORIDE 0.9% 50 ML IVPB ONE (17:15)
[2021-04-26] MEDS ORDERED: CASIRIVIMAB (REGN10933) (EUA) 600 MG, IMDEVIMAB (REGN10987) (EUA) 600 MG in SODIUM CHLO... IVPB ONE (17:15)
--- NOTE | 2021-04-26 18:37 | XR ---
EXAMINATION TYPE: XR chest 2V DATE OF EXAM: 04/26/2021 COMPARISON: NONE HISTORY: Cough TECHNIQUE: 2 views FINDINGS: There is some patchy infiltrate in both lungs which is mostly interstitial. Heart size is n ormal. There is no heart failure. There are no hilar masses. Costophrenic angles are clear. Bony thor ax is intact. IMPRESSION: Patchy bilateral pneumonia. This appears new compared to old CT scan of 10/03/2016. Some o f the density is somewhat rounded and pulmonary metastatic disease not excluded.
--- NOTE | 2021-04-26 18:45 | ED ---
General Adult HPI - General Chief complaint: Upper Respiratory Infection Stated complaint: poss Covid pneumonia Time Seen by Provider: 04/26/21 16:05 Source: patient Mode of arrival: ambulatory Limitations: no limitations - History of Present Illness Initial comments: 50 year-old female patient presents to the emergency department for evaluation for cough, shortness of breath, and fever. Reports lack of appetite and nausea. She states she has been sick for the last 45 days. Started with nasal congestion and drainage. She was treated for sinus infection with antibiotics and taper of steroids. States it really did not help. States she started coughing on 04/21/21. States that she developed fever on Sunday. States prior to that her symptoms were mostly facial congestion. Denies taking anything for fever prior to arrival. - Related Data Home Medications Medication Instructions Recorded Confirmed Montelukast Sodium [Singulair] 10 mg PO HS 01/09/18 04/26/21 Lisinopril-Hctz 10-12.5 mg 1 tab PO HS 07/16/18 04/26/21 [Zestoretic 10-12.5] Albuterol Inhaler [Ventolin Hfa 2 puff INHALATION RT-QID PRN 04/26/21 04/26/21 Inhaler] Albuterol Nebulized [Ventolin 2.5 mg INHALATION RT-QID PRN 04/26/21 04/26/21 Nebulized] Ascorbic Acid [Vitamin C] 1,000 mg PO DAILY 04/26/21 04/26/21 Budesonide [Pulmicort] 0.5 mg INHALATION RT-BID PRN 04/26/21 04/26/21 Cholecalciferol [Vitamin D3 (25 50 mcg PO DAILY 04/26/21 04/26/21 Mcg = 1000 Iu)] Cranberry Fruit Extract [Cranberry] 500 mg PO DAILY 04/26/21 04/26/21 Fluticasone Nasal [place] [Flonase 1 spray EA NOSTRIL DAILY PRN 04/26/21 04/26/21 Nasal [place]] Glucosamine HCl/Chondroitin Samuels 1 cap PO DAILY 04/26/21 04/26/21 [Glucosamine-Chondroitin Cap] Lansoprazole 15 mg PO DAILY 04/26/21 04/26/21 Levofloxacin [Levaquin] 500 mg PO DAILY 04/26/21 04/26/21 Promethazine/Dextromethorphan 5 ml PO Q4H PRN 04/26/21 04/26/21 [Promethazine-Dm Syrup] predniSONE [Deltasone] See Taper PO DIRECTED 04/26/21 04/26/21 Previous Rx's Medication Instructions Recorded Dexamethasone 6 mg PO DAILY #9 tablet 04/26/21 Ipratropium-Albuterol Nebulize 3 ml INHALATION Q4H PRN #90 ml 04/26/21 [Duoneb 0.5 mg-3 mg/3 ml Soln] Allergies Allergy/AdvReac Type Severity Reaction Status Date / Time adhesive tape Allergy SKIN RED Verified 04/26/21 17:13 amoxicillin Allergy Rash/Hives Verified 04/26/21 17:13 Sulfa (Sulfonamide AdvReac Unknown Verified 04/26/21 17:13 Antibiotics) Childhood sulfamethoxazole AdvReac "BLOOD IN Verified 04/26/21 17:13 [From Bactrim] EYES trimethoprim [From Bactrim] AdvReac "BLOOD IN Verified 04/26/21 17:13 EYES" Review of Systems ROS Statement: Those systems with pertinent positive or pertinent negative responses have been documented in the HPI. ROS Other: All systems not noted in ROS Statement are negative. Past Medical History Past Medical History: Asthma History of Any Multi-Drug Resistant Organisms: None Reported Past Surgical History: Hysterectomy Additional Past Surgical History / Comment(s): sinus surgery, 3 right knee, 2 left knee Past Anesthesia/Blood Transfusion Reactions: No Reported Reaction Additional Past Anesthesia/Blood Transfusion Reaction / Comment(s): PATIENT STATES SHE HAD A SORE THROAT AFTER HER SURGERY IN JULY 2018- SEE ANESTHESIA REPORT-REPORT IN EMR UNDER REPORTS Past Psychological History: Anxiety Smoking Status: Never smoker Past Alcohol Use History: None Reported Past Drug Use History: None Reported - Past Family History Mother Family Medical History: Hypertension Father Family Medical History: Hypertension, Myocardial Infarction ([place]) General Exam Limitations: no limitations General appearance: alert, in no apparent distress, other (This is a well- developed, well-nourished adult female in no acute distress.) Eye exam: Present: normal appearance, PERRL, EOMI. Absent: scleral icterus, conjunctival injection, periorbital swelling ENT exam: Present: normal exam, normal oropharynx, mucous membranes moist Respiratory exam: Present: normal lung sounds bilaterally. Absent: respiratory distress, wheezes, rales, rhonchi, stridor Cardiovascular Exam: Present: normal rhythm, tachycardia, normal heart sounds. Absent: systolic murmur, diastolic murmur, rubs, gallop, clicks GI/Abdominal exam: Present: soft, normal bowel sounds. Absent: distended, tenderness, guarding, rebound, rigid Neurological exam: Present: alert, oriented X3, CN II-XII intact Psychiatric exam: Present: normal affect, normal mood Skin exam: Present: warm, dry, intact, normal color. Absent: rash Course Vital Signs 04/26/21 04/26/21 04/26/21 14:22 16:09 16:18 Temperature 103.1 F H 99.4 F Pulse Rate 109 H Respiratory 19 20 Rate Blood Pressure 143/84 O2 Sat by Pulse 97 95 Oximetry 04/26/21 04/26/21 04/26/21 18:14 18:51 19:36 Temperature 97.4 F L Pulse Rate 82 77 Respiratory 20 18 Rate Blood Pressure 127/69 115/67 O2 Sat by Pulse 93 L 96 Oximetry Medical Decision Making - Medical Decision Making 50-year-old female patient presents for evaluation of cough, congestion, shortness of breath. She's been sick for quite some time though the symptoms started about 5-6 days ago. Physical examination did reveal crackling in the posterior lung salmon. She did test positive for COVID-19. She did meet criteria to receive monoclonal antibody infusion. Chest x-ray did come back with evidence for multifocal pneumonia though there was some suspicion for metastatic lesions. CT chest with contrast was obtained and showed no evidence for solid pulmonary nodules at this time. There was however evidence for multifocal pneumonia. She is given IV steroids. She'll be discharged home with prescription for DuoNeb treatments and continued steroids. Return parameters were discussed in detail. She verbalizes understanding and agrees with this plan. My attending is Dr. Zavala. - Lab Data Lab Results 04/26/21 Range/Units 14:40 Coronavirus (PCR) Detected A (Not Detectd) - Radiology Data Radiology results: report reviewed, image reviewed Two-view x-ray of the chest is obtained. Report was reviewed in its entirety. Impression by Dr. Amin shows patchy bilateral pneumonia. This appears new compared to old computed tomography scan of 10/03/2016. Some of the density is somewhat rounded and pulmonary metastatic disease is not excluded. CT chest with contrast was obtained. Report was reviewed in its entirety. Impression by Dr. Amin shows multifocal moderate chronic last pulmonary interstitial infiltrates consistent with pneumonia. This appears new compared to old exam. Normal heart. No evidence of assault pulmonary nodule to suggest metastatic disease. Disposition Clinical Impression: COVID-19 Disposition: HOME SELF-CARE Condition: Good Instructions (If sedation given, give patient instructions): Coronavirus Disease 2019 (COVID-19) Additional Instructions: Tips to help you feel better: -Maintain adequate fluid intake - especially water. -Rest, you are healing your body will require extra sleep. -Eat even if you do not feel like it - broth, jello, toast are fine if you cannot eat full meals. -Take tylenol and motrin alternating (if you have no allergies or have not been instructed to avoid these medications) to help with body aches and fevers. -Obtain over the counter vitamin C, zinc, and vitamin D3. -Take medications as prescribed. Follow-up with your primary care physician for recheck in 1-2 days. Return for any new, worsening, or concerning symptoms. Prescriptions: Dexamethasone 6 mg PO DAILY #9 tablet Ipratropium-Albuterol Nebulize [Duoneb 0.5 mg-3 mg/3 ml Soln] 3 ml INHALATION Q4H PRN #90 ml PRN Reason: Wheezing/Shortness of breath Is patient prescribed a controlled substance at d/c from ED?: No Referrals: Selina Carpenter DO [Primary Care Provider] - 1-2 days Time of Disposition: 19:32
[2021-04-26 18:51] VITALS: BP 115/67; PULSE 77; RESP 18
[2021-04-26] MEDS ORDERED: RX INFO: IV CONTRAST WAS GIVEN 1 EACH MISC MISCELLANE PRN (19:33)
[2021-04-26 19:36] VITALS: TEMP 97.4
--- NOTE | 2021-04-26 20:10 | CT ---
EXAMINATION TYPE: CT chest w con DATE OF EXAM: 04/26/2021 COMPARISON: 10/03/2016 HISTORY: SOB, +covid CT DLP: 682.9 mGycm Automated exposure control for dose reduction was used. CONTRAST: Performed with IV Contrast, patient injected with 100 mL of Isovue 300. Images obtained from the thoracic inlet to the diaphragm with IV contrast. There is patchy bilateral groundglass interstitial infiltrate throughout both lungs. There is no pleu ral effusion. Heart size is normal. There is no pericardial effusion. Upper abdominal soft tissues ar e intact. There is some mild fatty infiltration of the liver. There are no hilar masses. There is no mediastinal adenopathy. Thoracic aorta is intact. There is no aneurysm or dissection. There is multilevel spurring in the thoracic spine. There is no compression fracture. Sternum is inta ct. IMPRESSION: Multifocal moderate groundglass pulmonary interstitial infiltrates consistent with pneumonia. This ap pears new compared to old exam. Normal heart. No evidence of a solid pulmonary nodule to suggest meta static disease.
== END 2021-04-26 20:50 | disposition home or self-care (01) ==
LOC: EC 13:52
DX: U07.1 COVID-19 (principal); J45.909 Unspecified asthma, uncomplicated; F41.9 Anxiety disorder, unspecified; Z79.51 Long term (current) use of inhaled steroids
CPT/HCPCS: 87635; 71046; 71260; 99285; 96374; 96361; J1100; Q9967; Q0244

== ENCOUNTER 2021-04-27 05:43 | Inpatient (IN) | payer BC ==
[2021-04-27] MEDS ORDERED: SODIUM CHLORIDE 0.9% 500 ML 500 ML IV ONE (06:28)
[2021-04-27] MEDS ORDERED: SODIUM CHLORIDE 0.9% 1,000 ML IV ONE (06:28)
[2021-04-27] MEDS ORDERED: ACETAMINOPHEN TAB 500 MG TAB PO STA (06:28)
[2021-04-27] MEDS ORDERED: KETOROLAC 15 MG/ML 1 ML VIAL IVP STA (06:54)
--- NOTE | 2021-04-27 06:56 | ED ---
General Adult HPI - General Chief complaint: Shortness of Breath Stated complaint: Cough, Covid+ Time Seen by Provider: 04/27/21 06:25 Source: patient, RN notes reviewed Mode of arrival: ambulatory Limitations: no limitations - History of Present Illness Initial comments: This is a 50-year-old female presents to the emergency Department with chief complaint of: 19. Patient states she was symptoms on Sunday have progressively worsened. Patient seen here yesterday did receive monoclonal antibodies. Patient states that she feels minimally worse today though she has not taken any recent Tylenol Motrin. She states she cannot remember how far apart she did take them so she's stated that she stopped taking them. She complains of headache, body aches, nausea vomiting diarrhea. She has no significant shortness breath at this time with states does come and go. Patient has a history of asthma and hypertension. - Related Data Home Medications Medication Instructions Recorded Confirmed Montelukast Sodium [Singulair] 10 mg PO HS 01/09/18 04/27/21 Lisinopril-Hctz 10-12.5 mg 1 tab PO HS 07/16/18 04/27/21 [Zestoretic 10-12.5] Albuterol Inhaler [Ventolin Hfa 2 puff INHALATION RT-QID PRN 04/26/21 04/27/21 Inhaler] Ascorbic Acid [Vitamin C] 1,000 mg PO DAILY 04/26/21 04/27/21 Budesonide [Pulmicort] 0.5 mg INHALATION RT-BID PRN 04/26/21 04/27/21 Cholecalciferol [Vitamin D3 (25 50 mcg PO DAILY 04/26/21 04/27/21 Mcg = 1000 Iu)] Cranberry Fruit Extract [Cranberry] 500 mg PO DAILY 04/26/21 04/27/21 Fluticasone Nasal [place] [Flonase 1 spray EA NOSTRIL DAILY PRN 04/26/21 04/27/21 Nasal [place]] Glucosamine HCl/Chondroitin [place] 1 cap PO DAILY 04/26/21 04/27/21 [Glucosamine-Chondroitin Cap] Lansoprazole 15 mg PO DAILY 04/26/21 04/27/21 Levofloxacin [Levaquin] 500 mg PO DAILY 04/26/21 04/27/21 Promethazine/Dextromethorphan 5 ml PO Q4H PRN 04/26/21 04/27/21 [Promethazine-Dm Syrup] Ipratropium-Albuterol Nebulize 3 ml INHALATION RT-Q4H PRN 04/27/21 04/27/21 [Duoneb 0.5 mg-3 mg/3 ml Soln] Previous Rx's Medication Instructions Recorded Dexamethasone 6 mg PO DAILY #9 tablet 04/26/21 Allergies Allergy/AdvReac Type Severity Reaction Status Date / Time adhesive tape Allergy SKIN RED Verified 04/27/21 08:39 amoxicillin Allergy Rash/Hives Verified 04/27/21 08:39 Sulfa (Sulfonamide AdvReac Unknown Verified 04/27/21 08:39 Antibiotics) Childhood sulfamethoxazole AdvReac "BLOOD IN Verified 04/27/21 08:39 [From Bactrim] EYES trimethoprim [From Bactrim] AdvReac "BLOOD IN Verified 04/27/21 08:39 EYES" Review of Systems ROS Statement: Those systems with pertinent positive or pertinent negative responses have been documented in the HPI. ROS Other: All systems not noted in ROS Statement are negative. Past Medical History Past Medical History: Asthma History of Any Multi-Drug Resistant Organisms: None Reported Past Surgical History: Hysterectomy Additional Past Surgical History / Comment(s): sinus surgery, 3 right knee, 2 left knee Past Anesthesia/Blood Transfusion Reactions: No Reported Reaction Additional Past Anesthesia/Blood Transfusion Reaction / Comment(s): PATIENT STATES SHE HAD A SORE THROAT AFTER HER SURGERY IN JULY 2018- SEE ANESTHESIA REPORT-REPORT IN EMR UNDER REPORTS Past Psychological History: Anxiety Smoking Status: Never smoker Past Alcohol Use History: None Reported Past Drug Use History: None Reported - Past Family History Mother Family Medical History: Hypertension Father Family Medical History: Hypertension, Myocardial Infarction ([place]) General Exam General appearance: alert, in no apparent distress Head exam: Present: atraumatic, normocephalic, normal inspection Eye exam: Present: normal appearance, PERRL, EOMI. Absent: scleral icterus, conjunctival injection, periorbital swelling ENT exam: Present: normal exam, normal oropharynx, mucous membranes moist Neck exam: Present: normal inspection, full ROM. Absent: tenderness, meningismus, lymphadenopathy Respiratory exam: Present: normal lung sounds bilaterally. Absent: respiratory distress, wheezes, rales, rhonchi, stridor Cardiovascular Exam: Present: normal rhythm, tachycardia, normal heart sounds. Absent: systolic murmur, diastolic murmur, rubs, gallop, clicks GI/Abdominal exam: Present: soft, normal bowel sounds. Absent: distended, tenderness, guarding, rebound, rigid Neurological exam: Present: alert Skin exam: Present: warm, dry, intact, normal color. Absent: rash Course Vital Signs 04/27/21 04/27/21 04/27/21 06:05 06:06 07:06 Temperature 99.1 F Pulse Rate 138 H 96 Respiratory 29 H 29 H 18 Rate Blood Pressure 158/89 129/84 O2 Sat by Pulse 94 L 94 L Oximetry 04/27/21 07:53 Temperature 99.5 F Pulse Rate 89 Respiratory 20 Rate Blood Pressure 106/74 O2 Sat by Pulse 89 L Oximetry Medical Decision Making - Medical Decision Making EKG performed at 6:36 sinus tachycardia rate of 106 IN 120 QRS 62 QT/QTC 308/409 - Lab Data Result diagrams: 04/27/21 06:31 04/27/21 06:31 Lab Results 04/27/21 04/27/21 04/27/21 Range/Units 06:31 06:31 06:31 WBC 12.2 H (3.8-10.6) k/uL RBC 4.72 (3.80-5.40) m/uL Hgb 14.9 (11.4-16.0) gm/dL Hct 43.6 (34.0-46.0) % MCV 92.4 (80.0-100.0) fL MCH 31.6 (25.0-35.0) pg MCHC 34.2 (31.0-37.0) g/dL RDW 13.4 (11.5-15.5) % Plt Count 237 (150-450) k/uL MPV 7.9 Neutrophils % 89 % Lymphocytes % 7 % Monocytes % 2 % Eosinophils % 0 % Basophils % 0 % Neutrophils # 10.9 H (1.3-7.7) k/uL Lymphocytes # 0.9 L (1.0-4.8) k/uL Monocytes # 0.3 (0-1.0) k/uL Eosinophils # 0.0 (0-0.7) k/uL Basophils # 0.0 (0-0.2) k/uL PT 10.1 (9.0-12.0) sec INR 0.9 (<1.2) APTT 21.9 L (22.0-30.0) sec Sodium 137 (137-145) mmol/L Potassium 3.4 L (3.5-5.1) mmol/L Chloride 98 (98-107) mmol/L Carbon Dioxide 27 (22-30) mmol/L Anion Gap 12 mmol/L BUN 13 (7-17) mg/dL Creatinine 0.78 (0.52-1.04) mg/dL Est GFR (CKD-EPI)AfAm >90 (>60 ml/min/1.73 sqM) Est GFR (CKD-EPI)NonAf 89 (>60 ml/min/1.73 sqM) Glucose 131 H (74-99) mg/dL Calcium 8.5 (8.4-10.2) mg/dL Magnesium 1.8 (1.6-2.3) mg/dL Total Bilirubin 0.7 (0.2-1.3) mg/dL AST 25 (14-36) U/L ALT 17 (4-34) U/L Alkaline Phosphatase 82 (38-126) U/L Lactate Dehydrogenase 789 H (313-618) U/L Total Protein 7.2 (6.3-8.2) g/dL Albumin 3.8 (3.5-5.0) g/dL Disposition Clinical Impression: Pneumonia due to COVID-19 virus, Hypoxia Disposition: ADMITTED IP TO THIS HOSP Condition: Fair Referrals: Selina Carpenter DO [Primary Care Provider] - 1-2 days Time of Disposition: 09:16
--- NOTE | 2021-04-27 07:28 | XR ---
EXAMINATION TYPE: XR chest 2V DATE OF EXAM: 04/27/2021 COMPARISON: 04/26/2021 HISTORY: 50 year-old female shortness of breath, difficulty breathing, COVID positive TECHNIQUE: PA and lateral views FINDINGS: Low lung volumes with crowded vascular markings. Heart is mildly enlarged. Continued multiple patchy bilateral lung opacities. No pleural effusion. IMPRESSION: 1. Continued multifocal patchy infiltrates throughout both lungs. 2. Hypoventilatory changes and mild cardiomegaly.
[2021-04-27 08:05] LABS: ALT 17 U/L (4-34); AST 25 U/L (14-36); African American GFR (CKD) >90 (>60 ml/min/1.73 sqM); Albumin 3.8 g/dL (3.5-5.0); Alkaline Phosphatase 82 U/L (38-126); Anion Gap 12 mmol/L; Blood Urea Nitrogen 13 mg/dL (7-17); Calcium 8.5 mg/dL (8.4-10.2); Carbon Dioxide 27 mmol/L (22-30); Chloride 98 mmol/L (98-107); Glucose 131 mg/dL (74-99); LDH 789 U/L (313-618); Magnesium 1.8 mg/dL (1.6-2.3); Non-African American GFR(CKD) 89 (>60 ml/min/1.73 sqM); Potassium 3.4 mmol/L (3.5-5.1); Sodium 137 mmol/L (137-145); Total Bilirubin 0.7 mg/dL (0.2-1.3); Total Protein 7.2 g/dL (6.3-8.2)
[2021-04-27 08:43] LABS: INR 0.9 (<1.2); Partial Thromboplastin Time 21.9 sec (22.0-30.0); Prothrombin Time 10.1 sec (9.0-12.0)
[2021-04-27 08:44] LABS: Basophils % (A) 0 %; Eosinophils % (A) 0 %; HCT 43.6 % (34.0-46.0); HGB 14.9 gm/dL (11.4-16.0); Lymphocytes # (A) 0.9 k/uL (1.0-4.8); Lymphocytes % (A) 7 %; MCH 31.6 pg (25.0-35.0); MCHC 34.2 g/dL (31.0-37.0); MCV 92.4 fL (80.0-100.0); Mean Platelet Volume 7.9; Monocytes # (A) 0.3 k/uL (0-1.0); Monocytes % (A) 2 %; Neutrophils # (A) 10.9 k/uL (1.3-7.7); Neutrophils % (A) 89 %; Platelet Count 237 k/uL (150-450); RBC 4.72 m/uL (3.80-5.40); RDW 13.4 % (11.5-15.5); WBC 12.2 k/uL (3.8-10.6)
[2021-04-27] MEDS ORDERED: ACETAMINOPHEN TAB 325 MG TAB PO PRN (09:17)
[2021-04-27] MEDS ORDERED: NALOXONE 0.4 MG/ML 1 ML VIAL IV PRN ×2 (09:17→13:09)
[2021-04-27] MEDS ORDERED: IBUPROFEN 400 MG TAB PO PRN (09:17)
[2021-04-27] MEDS ORDERED: ONDANSETRON 4 MG/2 ML VIAL IVP PRN (09:17)
[2021-04-27 11:16] LABS: C Reactive Protein 8.1 mg/dL (<1.0)
--- NOTE | 2021-04-27 12:48 | P.CNPUL ---
History of Present Illness Consult date: 04/27/21 Requesting physician: Shelby Martinez Reason for consult: dyspnea, hypoxemia, abnormal CXR/CT Chief complaint: Shortness of breath, cough, congestion History of present illness: This is a very pleasant 50-year-old female patient with a known history of chronic bronchial asthma, hypertension, acid reflux. She states since March 31 she started having issues with sinus congestion cough, and fevers. She was treated with antibiotics and steroids in the outpatient setting. She was seen again and felt to have bronchitis. Yesterday she presented here to the emergency room and did test positive for COVID-19 and received monoclonal antibodies and was discharged to home. CT scan of the chest did reveal multifocal moderate groundglass pulmonary interstitial infiltrates bilaterally consistent with COVID-19 pneumonia. She presented here to the emergency room again earlier this morning with worsening shortness of breath, cough and congestion. She was found to be hypoxemic at 89% on room air. She's had a low- grade temperature of 99.5. She had previous issues with nausea vomiting di arrhea. She still has headaches and muscle aches. She is not vaccinated. 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 White count 12.2. Hemoglobin 14.9. Lymphocytes 0.9. INR 0.9. Sodium 137. Potassium 3.4. Creatinine 0.78. Glucose 131. LDH 789. C-reactive protein 8.1. She is seen today in consultation in the ER. She is currently sitting up on the stretcher. Awake and alert in no acute distress. She is maintaining good O2 saturations in the low 90s on 2 L/m per nasal cannula. Currently afebrile. Hemodynamically stable. She's been initiated on Decadron. Review of Systems REVIEW OF SYSTEMS: CONSTITUTIONAL: Generalized weakness, fatigue, muscle aches. Denies any recent significant weight loss or weight gain. EYES: Denies change in vision. EARS, NOSE, MOUTH, THROAT: As in for headaches, denies sore throat. CARDIOVASCULAR: Denies chest pain, palpitations or syncopal episodes. RESPIRATORY: Positive for shortness of breath, cough, congestion no hemoptysis. GASTROINTESTINAL: Positive for nausea, vomiting, diarrhea GENITOURINARY: Denies hematuria, denies infections. MUSKULOSKELETAL: Denies pain, denies swelling. INTEGUMENTARY: Denies rash, denies eczema. NEUROLOGICAL: Denies recent memory loss, no recent seizure activity. PSYCHIATRIC: Denies anxiety, denies depression. HEMATOLOGIC/LYMPHATIC: Denies anemia, denies enlarged lymph nodes. Past Medical History Past Medical History: Asthma History of Any Multi-Drug Resistant Organisms: None Reported Past Surgical History: Hysterectomy Additional Past Surgical History / Comment(s): sinus surgery, 3 right knee, 2 left knee Past Anesthesia/Blood Transfusion Reactions: No Reported Reaction Additional Past Anesthesia/Blood Transfusion Reaction / Comment(s): PATIENT STATES SHE HAD A SORE THROAT AFTER HER SURGERY IN JULY 2018- SEE ANESTHESIA REPORT-REPORT IN EMR UNDER REPORTS Past Psychological History: Anxiety Smoking Status: Never smoker Past Alcohol Use History: None Reported Past Drug Use History: None Reported - Past Family History Mother Family Medical History: Hypertension Father Family Medical History: Hypertension, Myocardial Infarction ([place]) Medications and Allergies Home Medications Medication Instructions Recorded Confirmed Type Montelukast Sodium [Singulair] 10 mg PO HS 01/09/18 04/27/21 History Lisinopril-Hctz 10-12.5 mg 1 tab PO HS 07/16/18 04/27/21 History [Zestoretic 10-12.5] Albuterol Inhaler [Ventolin Hfa 2 puff INHALATION RT-QID PRN 04/26/21 04/27/21 History Inhaler] Ascorbic Acid [Vitamin C] 1,000 mg PO DAILY 04/26/21 04/27/21 History Budesonide [Pulmicort] 0.5 mg INHALATION RT-BID PRN 04/26/21 04/27/21 History Cholecalciferol [Vitamin D3 (25 50 mcg PO DAILY 04/26/21 04/27/21 History Mcg = 1000 Iu)] Cranberry Fruit Extract [Cranberry] 500 mg PO DAILY 04/26/21 04/27/21 History Dexamethasone 6 mg PO DAILY #9 tablet 04/26/21 04/27/21 Rx Fluticasone Nasal [place] [Flonase 1 spray EA NOSTRIL DAILY PRN 04/26/21 04/27/21 History Nasal [place]] Glucosamine HCl/Chondroitin Samuels 1 cap PO DAILY 04/26/21 04/27/21 History [Glucosamine-Chondroitin Cap] Lansoprazole 15 mg PO DAILY 04/26/21 04/27/21 History Levofloxacin [Levaquin] 500 mg PO DAILY 04/26/21 04/27/21 History Promethazine/Dextromethorphan 5 ml PO Q4H PRN 04/26/21 04/27/21 History [Promethazine-Dm Syrup] Ipratropium-Albuterol Nebulize 3 ml INHALATION RT-Q4H PRN 04/27/21 04/27/21 History [Duoneb 0.5 mg-3 mg/3 ml Soln] Allergies Allergy/AdvReac Type Severity Reaction Status Date / Time adhesive tape Allergy SKIN RED Verified 04/27/21 08:39 amoxicillin Allergy Rash/Hives Verified 04/27/21 08:39 Sulfa (Sulfonamide AdvReac Unknown Verified 04/27/21 08:39 Antibiotics) Childhood sulfamethoxazole AdvReac "BLOOD IN Verified 04/27/21 08:39 [From Bactrim] EYES trimethoprim [From Bactrim] AdvReac "BLOOD IN Verified 04/27/21 08:39 EYES" Physical Exam Vitals: Vital Signs Temp Pulse Resp BP Pulse Ox 04/27/21 11:30 99.0 F 78 20 104/70 97 04/27/21 07:53 99.5 F 89 20 106/74 89 L 04/27/21 07:06 96 18 129/84 94 L 04/27/21 06:06 29 H 04/27/21 06:05 99.1 F 138 H 29 H 158/89 94 L Intake and Output 04/26/21 04/27/21 04/27/21 22:59 06:59 14:59 Other: Weight 104.326 kg GENERAL EXAM: Alert, pleasant 50-year-old female patient, on 2 L nasal cannula, fairly comfortable in no apparent distress. HEAD: Normocephalic. EYES: Normal reaction of pupils, equal size. NOSE: Clear with pink turbinates. THROAT: No erythema or exudates. NECK: No masses, no JVD. CHEST: No chest wall deformity. LUNGS: Equal air entry with crackles in the bilateral bases CVS: S1 and S2 normal with no audible murmur, regular rhythm. ABDOMEN: No hepatosplenomegaly, normal bowel sounds, no guarding or rigidity. SPINE: No scoliosis or deformity SKIN: No rashes CENTRAL NERVOUS SYSTEM: No focal deficits, tone is normal in all 4 extremities. EXTREMITIES: There is no peripheral edema. No clubbing, no cyanosis. Peripheral pulses are intact. Results - Laboratory Findings CBC and BMP: 04/27/21 06:31 04/27/21 06:31 PT/INR, D-dimer PT 10.1 sec (9.0-12.0) 04/27/21 06:31 INR 0.9 (<1.2) 04/27/21 06:31 Abnormal lab findings: Abnormal Labs 04/27/21 04/27/21 04/27/21 06:31 06:31 06:31 WBC 12.2 H Neutrophils # 10.9 H Lymphocytes # 0.9 L APTT 21.9 L Potassium 3.4 L Glucose 131 H Lactate Dehydrogenase 789 H C-Reactive Protein 8.1 H - Diagnostic Findings Chest x-ray: image reviewed CT scan - chest: image reviewed Assessment and Plan Assessment: 1 Acute hypoxemic respiratory failure secondary to acute COVID-19 pneumonia. Computed tomography scan of the chest reveals multiple areas of groundglass opacities. Symptoms started 03/31/2021. Received antibiotics and steroids in the outpatient setting without much improvement. Tested positive for COVID-19 on 04/26/2021 and received monoclonal antibodies in the emergency department. Re-presented here today 04/27/2021 with worsening symptoms. Outside the window for Remdesivir. Not qualifying for Baricitinib. We'll add Lovenox, Decadron, vitamin supplements. The patient is not vaccinated. 2 Elevated inflammatory markers secondary to above 3 Obesity 4 History of chronic bronchial asthma 5 Hypertension 6 Gastroesophageal reflux disease Plan: The patient was seen and evaluated Chest x-ray, CAT scans and labs reviewed Obtain a d-dimer Obtaining pro-calcitonin Continue Decadron Add Lovenox, vitamin supplements Titrate the FiO2 as tolerated We will continue to follow and make further recommendations based on her clinical status I, the cosigning physician, performed a history & physical examination of the patient. Lungs sounds crackles in the bilateral bases Maintaining O2 saturations in the 90s on 2 L/m per nasal cannula I discussed the assessment and plan of care with my nurse practitioner, Tammy Coffman. I attest to the above consultation as dictated by her. Time with Patient: Greater than 30
[2021-04-27] MEDS ORDERED: CHOLECALCIFEROL 25 MCG (1000 IU) TABLET PO SCH (13:00)
[2021-04-27] MEDS ORDERED: POTASSIUM CHLORIDE ER 20 MEQ TAB.ER PO STA (13:09)
--- NOTE | 2021-04-27 13:21 | P.HPIM ---
History of Present Illness H&P Date: 04/27/21 Chief Complaint: sob 50-year-old female patient with a known history of chronic bronchial asthma, hypertension, acid reflux who presented to the ER due to worsening sob and co ugh. Since March 31 she started having issues with sinus congestion cough, and fevers. She was treated with antibiotics and steroids in the outpatient setting. Yesterday she presented to the emergency room and did test positive for COVID-19 and received monoclonal antibodies and was discharged to home. CT scan of the chest did reveal multifocal moderate groundglass pulmonary interstitial infiltrates bilaterally consistent with COVID-19 pneumonia. She presented again today due to worsening shortness of breath, cough and congestion. Associated symptoms include headaches and muscle aches. Earlier she had nausea, vomiting, diarrhea. She is not vaccinated. Evaluation in the ER revealed that she was hypoxemic at 89% on room air. Temp was 99.5. White count 12.2. Hemoglobin 14.9. Lymphocytes 0.9. INR 0.9. Sodium 137. Potassium 3.4. Creatinine 0.78. Glucose 131. LDH 789. C-reactiv e protein 8.1. Computed tomography scan of the chest reveals multiple areas of groundglass opacities. Review of Systems Complete review of system performed, pertinent positives per HPI, otherwise negative Past Medical History Past Medical History: Asthma History of Any Multi-Drug Resistant Organisms: None Reported Past Surgical History: Hysterectomy Additional Past Surgical History / Comment(s): sinus surgery, 3 right knee, 2 left knee Past Anesthesia/Blood Transfusion Reactions: No Reported Reaction Additional Past Anesthesia/Blood Transfusion Reaction / Comment(s): PATIENT STATES SHE HAD A SORE THROAT AFTER HER SURGERY IN JULY 2018- SEE ANESTHESIA REPORT-REPORT IN EMR UNDER REPORTS Past Psychological History: Anxiety Smoking Status: Never smoker Past Alcohol Use History: None Reported Past Drug Use History: None Reported - Past Family History Mother Family Medical History: Hypertension Father Family Medical History: Hypertension, Myocardial Infarction ([place]) Medications and Allergies Home Medications Medication Instructions Recorded Confirmed Type RX: Montelukast Sodium [Singulair] 10 mg PO HS 01/09/18 04/27/21 History RX: Lisinopril-Hctz 10-12.5 mg 1 tab PO HS 07/16/18 04/27/21 History [Zestoretic 10-12.5] Albuterol Inhaler [Ventolin Hfa 2 puff INHALATION RT-QID PRN 04/26/21 04/27/21 History Inhaler] Ascorbic Acid [Vitamin C] 1,000 mg PO DAILY 04/26/21 04/27/21 History Budesonide [Pulmicort] 0.5 mg INHALATION RT-BID PRN 04/26/21 04/27/21 History Cholecalciferol [Vitamin D3 (25 50 mcg PO DAILY 04/26/21 04/27/21 History Mcg = 1000 Iu)] Cranberry Fruit Extract [Cranberry] 500 mg PO DAILY 04/26/21 04/27/21 History Fluticasone Nasal [place] [Flonase 1 spray EA NOSTRIL DAILY PRN 04/26/21 04/27/21 History Nasal [place]] Glucosamine HCl/Chondroitin Samuels 1 cap PO DAILY 04/26/21 04/27/21 History [Glucosamine-Chondroitin Cap] Levofloxacin [Levaquin] 500 mg PO DAILY 04/26/21 04/27/21 History Promethazine/Dextromethorphan 5 ml PO Q4H PRN 04/26/21 04/27/21 History [Promethazine-Dm Syrup] RX: Dexamethasone 6 mg PO DAILY #9 tablet 04/26/21 04/27/21 Rx RX: Lansoprazole 15 mg PO DAILY 04/26/21 04/27/21 History Ipratropium-Albuterol Nebulize 3 ml INHALATION RT-Q4H PRN 04/27/21 04/27/21 History [Duoneb 0.5 mg-3 mg/3 ml Soln] Allergies Allergy/AdvReac Type Severity Reaction Status Date / Time adhesive tape Allergy SKIN RED Verified 04/27/21 08:39 amoxicillin Allergy Rash/Hives Verified 04/27/21 08:39 Sulfa (Sulfonamide AdvReac Unknown Verified 04/27/21 08:39 Antibiotics) Childhood sulfamethoxazole AdvReac "BLOOD IN Verified 04/27/21 08:39 [From Bactrim] EYES trimethoprim [From Bactrim] AdvReac "BLOOD IN Verified 04/27/21 08:39 EYES" Physical Exam Vitals: Vital Signs Temp Pulse Resp BP Pulse Ox 04/27/21 11:30 99.0 F 78 20 104/70 97 04/27/21 07:53 99.5 F 89 20 106/74 89 L 04/27/21 07:06 96 18 129/84 94 L 04/27/21 06:06 29 H 04/27/21 06:05 99.1 F 138 H 29 H 158/89 94 L Intake and Output 04/26/21 04/27/21 04/27/21 22:59 06:59 14:59 Other: Weight 104.326 kg Constitutional: No acute distress, conversant, pleasant Eyes:Anicteric sclerae, moist conjunctiva, no lid-lag, PERRLA, ENMT: Oropharynx clear, no erythema, exudates Neck: Supple, FROM, no masses, or JVD, No carotid bruits, No thyromegaly Lungs: tight breath sounds bilaterally, clear to percussion, Normal respiratory effort, no accessory muscle use Cardiovascular: Heart regular in rate and rhythm, No murmurs, gallops, or rubs, No peripheral edema Abdominal: Soft, Nontender, no guarding, rebound or rigidity, Normoactive bowel sounds, No hepatomegaly, No splenomegaly, No palpable mass Skin: Normal temperature, tone, texture, turgor, no induration, No subcutaneous nodules, No rash, lesions, No ulcers Extremities: No digital cyanosis, No clubbing, Pedal pulses intact and symmetrical, Radial pulses intact and symmetrical, No calf tenderness Psychiatric: Alert and oriented to person, place and time, appropriate affect, intact judgement Neuro: Muscles Strength 5/5 in all 4 extremities, Sensation to light touch grossly present throughout, Cranial nerves II-XII grossly intact, no focal sensory deficits Results CBC & Chem 7: 04/27/21 06:31 04/27/21 06:31 Labs: Abnormal Lab Results - Last 24 Hours (Table) 04/27/21 04/27/21 04/27/21 Range/Units 06:31 06:31 06:31 WBC 12.2 H (3.8-10.6) k/uL Neutrophils # 10.9 H (1.3-7.7) k/uL Lymphocytes # 0.9 L (1.0-4.8) k/uL APTT 21.9 L (22.0-30.0) sec Potassium 3.4 L (3.5-5.1) mmol/L Glucose 131 H (74-99) mg/dL Lactate Dehydrogenase 789 H (313-618) U/L C-Reactive Protein 8.1 H (<1.0) mg/dL Assessment and Plan Plan: Acute hypoxemic respiratory failure secondary to acute COVID-19 pneumonia. Chest x-ray, CAT scans and labs reviewed Check pro-calcitonin Outside the window for Remdesivir. O2 to keep sats above 92% Start Lovenox, Decadron, vitamin supplements. Pulm consulted Obesity Outpatient weight loss program History of chronic bronchial asthma Hypertension Gastroesophageal reflux disease All stable resume meds Expected length of stay more than 2 midnights, admit to inpatient Anticipated discharge: 3-4 days Dispo: Likely home
[2021-04-27] MEDS ORDERED: FLUTICASONE 50MCG/SPRAY NASAL 16GM EA NOSTRIL PRN (13:23)
[2021-04-27] MEDS ORDERED: BUDESONIDE 0.5 MG/2 ML NEBU INHALATION PRN (13:23)
[2021-04-27] MEDS: DEXAMETHASONE SOD PHOSPHATE 10 MG/ML 1 ML VIAL IVP SCH (16:33)
[2021-04-27] MEDS: ENOXAPARIN 40 MG/0.4 ML SYRINGE SQ SCH (16:39)
[2021-04-27] MEDS: ZINC SULFATE 220 MG CAP PO SCH (16:39)
[2021-04-27] MEDS: ASCORBIC ACID 500 MG TAB PO SCH (16:40)
[2021-04-27] MEDS ORDERED: LISINOPRIL-HCTZ 10-12.5 MG 1 EACH TAB PO SCH (21:00)
[2021-04-27] MEDS: MONTELUKAST 10 MG TAB PO SCH (22:41)
[2021-04-28] MEDS: ENOXAPARIN 40 MG/0.4 ML SYRINGE SQ SCH (08:59)
[2021-04-28] MEDS: PANTOPRAZOLE 40 MG TABLET PO SCH (09:00)
[2021-04-28] MEDS: CHOLECALCIFEROL 25 MCG (1000 IU) TABLET PO SCH (09:00)
[2021-04-28] MEDS: ASCORBIC ACID 500 MG TAB PO SCH (09:00)
[2021-04-28] MEDS ORDERED: NON FORMULARY DRUG (Ascorbic Acid [Vitamin C] 1,000 MG Tablet) PO SCH (09:00)
[2021-04-28] MEDS: DEXAMETHASONE SOD PHOSPHATE 10 MG/ML 1 ML VIAL IVP SCH ×2 (09:00→22:39)
[2021-04-28] MEDS: ZINC SULFATE 220 MG CAP PO SCH (09:00)
[2021-04-28] MEDS: ALBUTEROL HFA INHALER INHALATION PRN ×3 (09:34→21:43)
--- NOTE | 2021-04-28 10:15 | CDI ---
Documentation Clarification Form Date: 04/28/2021 10:06:00 AM From: Lori Summers CCS, CCDS Admit Date: 04/27/2021 09:37:00 AM Patient Name: Alcira Sykes Visit Number: [id number] Discharge Date: ATTENTION: The Clinical Documentation Specialists (CDI) and [facility] Coding Staff appreciate your assistance in clarifying documentation. Please respond to the clarification below the line at the bottom and electronically sign. The CDI & [facility] Coding staff will review the response and follow-up if needed. Please note: Queries are made part of the Legal Health Record. If you have any questions, please contact the author of this message via ITS. Dr. Micki Mullen: Asthma is documented in the 04/27 History & Physical and the 04/27 Pulmonary Consult as Chronic Bronchial Asthma. Additional clarification regarding the type of asthma is requested. History/risk factors per the 04/27 H/P: Hypertension, Obesity w/BMI >40, GERD. Clinical Indicators: Presented to the ED on 04/27 with SOB, Headache, Body aches, Nausea, Vomiting, Diarrhea. Tested positive 04/26 in the ED and received monoclonal antibodies, discharged home. Returned with worsening symptoms. Admitted with Pneumonia due to COVID-19 Virus, Hypoxia. 04/27 VS: T 99.1, P 138, R 29 (cough, tachypnea), BP 158/89, PO 94 RA - 89 RA - 97 2Lnc, BMI: 42.1 04/27 LAB: WBC 12.2, Neut 10.9, Lymph 0.9, APTT 21.9, K 3.4, Glucose 131, Ferritin 475.0, LDH 789, CRP 8.1, Procalcitonin 0.17 04/27 CXR: Continued multifocal patchy infiltrates throughout both lungs. Hypoventilatory changes and mild cardiomegaly. Treatment 04/27: O2 2Lnc, IV Na Cl 1,000 mls @ 999 mls/hr q1H, IV Na Cl 500 mls @ 999 mls/hr q31M, I Toradol 15 mg x1, po Tylenol 650 mg q6H/prn, po Motrin 400 mg q6H/prn, IV Zofran 4 mg q8H/prn, IV Decadron 6 mg daily, Lovenox sq, Vit C, Vit D3, Orazinc daily, INH Ventolin QID/prn, INH Pulmicort BID/prn Home meds: INH Duoneb, Singulair, Flonase nasal spray, INH Pulmicort, INH Ventolin Please clarify the type and severity of asthma, if known: [x ] Extrinsic asthma [ ] with exacerbation [x ] without exacerbation [ ] Intrinsic asthma [ ] with exacerbation [ ] without exacerbation [ ] Mild intermittent asthma [ ] with exacerbation [ ] without exacerbation [ ] Mild persistent asthma [ ] with exacerbation [ ] without exacerbation [ ] Moderate persistent asthma [ ] with exacerbation [ ] without exacerbation [ ] Other, please specify ____ [ ] Unable to determine (Template Last Revised: July 2020) MTDD
[2021-04-28] MEDS: guaiFENesin-Coden 100-10MG/5ML 10 ML CUP PO SCH ×3 (13:33→23:51)
--- NOTE | 2021-04-28 13:44 | P.PN ---
Subjective Progress Note Date: 04/28/21 Principal diagnosis: sob Feeling better. She is currently on RA. No fevers. Objective - Vital Signs Vital signs: Vital Signs Temp 98 F 04/28/21 11:18 Pulse 71 04/28/21 11:18 Resp 17 04/28/21 11:18 BP 129/83 04/28/21 11:18 Pulse Ox 94 L 04/28/21 11:18 Intake & Output 04/27/21 04/28/21 04/28/21 18:59 06:59 18:59 Intake Total 50 530 Balance 50 530 Weight 104.326 kg Intake: Oral 50 530 - Exam Constitutional: No acute distress, conversant, pleasant Eyes:Anicteric sclerae, moist conjunctiva, no lid-lag, PERRLA, ENMT: Oropharynx clear, no erythema, exudates Neck: Supple, FROM, no masses, or JVD, No carotid bruits, No thyromegaly Lungs: tight breath sounds bilaterally, clear to percussion, Normal respiratory effort, no accessory muscle use Cardiovascular: Heart regular in rate and rhythm, No murmurs, gallops, or rubs, No peripheral edema Abdominal: Soft, Nontender, no guarding, rebound or rigidity, Normoactive bowel sounds, No hepatomegaly, No splenomegaly, No palpable mass Skin: Normal temperature, tone, texture, turgor, no induration, No subcutaneous nodules, No rash, lesions, No ulcers Extremities: No digital cyanosis, No clubbing, Pedal pulses intact and symmetrical, Radial pulses intact and symmetrical, No calf tenderness Psychiatric: Alert and oriented to person, place and time, appropriate affect, intact judgement Neuro: Muscles Strength 5/5 in all 4 extremities, Sensation to light touch grossly present throughout, Cranial nerves II-XII grossly intact, no focal sensory deficits - Labs CBC & Chem 7: 04/27/21 06:31 04/27/21 06:31 Labs: Abnormal Lab Results - Last 24 Hours (Table) 04/27/21 04/27/21 04/28/21 Range/Units 06:31 06:31 06:27 Ferritin 475.0 H (10.0-291.0) ng/mL C-Reactive Protein 8.90 H (0.00-0.80) mg/dL Procalcitonin 0.17 H (0.02-0.09) ng/mL Assessment and Plan Plan: Acute hypoxemic respiratory failure secondary to acute COVID-19 pneumonia. Chest x-ray, CAT scans and labs reviewed Outside the window for Remdesivir. O2 to keep sats above 92% Lovenox, Decadron, vitamin supplements. Pulm following Obesity Outpatient weight loss program History of chronic bronchial asthma Hypertension Gastroesophageal reflux disease All stable resume meds Anticipated discharge: 1 day Dispo: Likely home
--- NOTE | 2021-04-28 14:13 | P.PN ---
Subjective Progress Note Date: 04/28/21 Principal diagnosis: Acute COVID-19 pneumonia This is a very pleasant 50-year-old female patient with a known history of chronic bronchial asthma, hypertension, acid reflux. She states since March 31 she started having issues with sinus congestion cough, and fevers. She was treated with antibiotics and steroids in the outpatient setting. She was seen again and felt to have bronchitis. Yesterday she presented here to the emergency room and did test positive for COVID-19 and received monoclonal antibodies and was discharged to home. CT scan of the chest did reveal m ultifocal moderate groundglass pulmonary interstitial infiltrates bilaterally consistent with COVID-19 pneumonia. She presented here to the emergency room again earlier this morning with worsening shortness of breath, cough and congestion. She was found to be hypoxemic at 89% on room air. She's had a low- grade temperature of 99.5. She had previous issues with nausea vomiting diarrhea. She still has headaches and muscle aches. She is not vaccinated. 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 White count 12.2. Hemoglobin 14.9. Lymphocytes 0.9. INR 0.9. Sodium 137. Potassium 3.4. Creatinine 0.78. Glucose 131. LDH 789. C-reactive protein 8.1. She is seen today in consultation in the ER. She is currently sitting up on the stretcher. Awake and alert in no acute distress. She is maintaining good O2 saturations in the low 90s on 2 L/m per nasal cannula. Currently afebrile. Hemodynamically stable. She's been initiated on Decadron. On 04/28/2021 patient seen in follow-up on medical surgical floor, on today's evaluation she is on room air and her pulse ox is 94%, however she continues to have severe coughing spells, she is short of breath, she states she doesn't feel well. She states her chest hurts from frequent coughing. She has been afebrile, hemodynamically she has been stable, lung sounds reveal diffuse crackles. Patient was diagnosed with COVID-19 pneumonia, her chest x-ray on admission showed multifocal patchy infiltrates throughout both lungs, hypoventilatory changes. CT of the chest that was completed on 04/26/2021 showed multifocal moderate groundglass pulmonary interstitial infiltrates consistent with pneumonia. Patient is an unvaccinated adult, she was outside the window for Remdesivir, she is currently on Decadron 6 blood gram daily, she is status post monoclonal antibody infusion. Today's labs have been reviewed, her d-dimer is within normal limits at 0.38, her CRP is stable at 8.9, LDH level is still pending, pro-calcitonin level was negative at 0.17. She is on prophylactic dose Lovenox 40 mg daily, she is on Singulair, Ventolin, inhaler, and she is on COVID-19 vitamins. Objective - Vital Signs Vital signs: Vital Signs Temp 98 F 04/28/21 11:18 Pulse 71 04/28/21 11:18 Resp 17 04/28/21 11:18 BP 129/83 04/28/21 11:18 Pulse Ox 94 L 04/28/21 11:18 Intake & Output 04/27/21 04/28/21 04/28/21 18:59 06:59 18:59 Intake Total 50 530 Balance 50 530 Weight 104.326 kg Intake: Oral 50 530 - Exam GENERAL EXAM: Alert, very pleasant, 50-year-old obese white female, on room air, with a pulse ox of 94% with frequent coughing spells, comfortable in no apparent distress. HEAD: Normocephalic/atraumatic. EYES: Normal reaction of pupils, equal size. Conjunctiva pink, sclera white. NOSE: Clear with pink turbinates. THROAT: No erythema or exudates. NECK: No masses, no JVD, no thyroid enlargement, no adenopathy. CHEST: No chest wall deformity. Symmetrical expansion. LUNGS: Equal air entry with diffuse crackles bilaterally CVS: Regular rate and rhythm, normal S1 and S2, no gallops, no murmurs, no rubs ABDOMEN: Soft, nontender. No hepatosplenomegaly, normal bowel sounds, no guar ding or rigidity. EXTREMITIES: No clubbing, no edema, no cyanosis, 2+ pulses and upper and lower extremities. MUSCULOSKELETAL: Muscle strength and tone normal. SPINE: No scoliosis or deformity SKIN: No rashes CENTRAL NERVOUS SYSTEM: Alert and oriented -3. No focal deficits, tone is normal in all 4 extremities. PSYCHIATRIC: Alert and oriented -3. Appropriate affect. Intact judgment and insight. - Labs CBC & Chem 7: 04/27/21 06:31 04/27/21 06:31 Labs: Abnormal Lab Results - Last 24 Hours (Table) 04/27/21 04/27/21 04/28/21 Range/Units 06:31 06:31 06:27 Ferritin 475.0 H (10.0-291.0) ng/mL C-Reactive Protein 8.90 H (0.00-0.80) mg/dL Procalcitonin 0.17 H (0.02-0.09) ng/mL Assessment and Plan Plan: Assessment: #1. Acute hypoxic respiratory failure, mild, related to acute COVID-19 pneumonia, patient came into the emergency department on 04/26/2021 with over a month and a half history of symptoms of cough, shortness of breath, nasal congestion. She had already been treated with antibiotics and steroids on an outpatient basis. Received monoclonal antibodies. She is outside the window for Remdesivir. Not vaccinated against COVID-19 #2. Acute exacerbation of chronic bronchial asthma, unspecified #3. Hypertension #4. GERD/reflux #5. Morbid obesity with BMI 42.1 kg/m #6. Anxiety #7. Nonsmoker Plan: Patient continues to have coughing spells, and shortness of breath We will increase the Decadron to twice daily dosing 6 mg We will add Robitussin-AC every 6 hours [id number] Continue current dose Lovenox, today's d-dimer is negative Remains on room air Recommend another 24 hours inpatient treatment and observation for worsening dyspnea or hypoxia Follow-up chest x-ray tomorrow We'll continue to follow I performed a history & physical examination of the patient and discussed their management with my nurse practitioner, Ana Luisa Fountain. I reviewed the nurse practitioner's note and agree with the documented findings and plan of care. Lung sounds are positive for diffuse crackles throughout the lung salmon. The findings and the impression was discussed with the patient. I attest to the documentation by the nurse practitioner. Time with Patient: Less than 30
[2021-04-28] MEDS ORDERED: BENZONATATE 100 MG CAP PO PRN (16:42)
[2021-04-28] MEDS: BENZONATATE 100 MG CAP PO SCH (22:39)
[2021-04-28] MEDS: MONTELUKAST 10 MG TAB PO SCH (22:39)
[2021-04-29] MEDS: guaiFENesin-Coden 100-10MG/5ML 10 ML CUP PO SCH ×2 (05:55→11:45)
[2021-04-29] MEDS: ALBUTEROL HFA INHALER INHALATION PRN ×2 (08:35→12:11)
--- NOTE | 2021-04-29 08:41 | XR ---
EXAMINATION TYPE: XR chest 1V portable DATE OF EXAM: 04/29/2021 COMPARISON: Chest x-ray 04/27/2021 HISTORY: Covid 19 pneumonia TECHNIQUE: Single frontal view of the chest is obtained. FINDINGS: Bilateral airspace disease is somewhat less confluent. Cardiac mediastinal silhouette show s a similar appearance. No evident pneumothorax or pleural effusion. IMPRESSION: There is some improvement in airspace disease, aeration
[2021-04-29 09:23] LABS: HCT 40.1 % (37.2-46.3); MCH 29.8 pg (27.0-32.0); MCHC 32.4 g/dL (32.0-37.0); Mean Platelet Volume 9.9 fL (9.5-12.2); Platelet Count 242 X 10*3/uL (140-440); RBC 4.36 X 10*6/uL (4.10-5.20); RDW 12.8 % (11.5-14.5); WBC 5.49 X 10*3/uL (4.50-10.00)
[2021-04-29] MEDS: DEXAMETHASONE SOD PHOSPHATE 10 MG/ML 1 ML VIAL IVP SCH (09:36)
[2021-04-29] MEDS: ASCORBIC ACID 500 MG TAB PO SCH (09:36)
[2021-04-29] MEDS: BENZONATATE 100 MG CAP PO SCH (09:37)
[2021-04-29] MEDS: LOSARTAN-HCTZ 50-12.5 MG 1 EACH TAB PO SCH ×2 (09:37→09:43)
[2021-04-29] MEDS: CHOLECALCIFEROL 25 MCG (1000 IU) TABLET PO SCH (09:37)
[2021-04-29] MEDS: PANTOPRAZOLE 40 MG TABLET PO SCH (09:37)
[2021-04-29] MEDS: ZINC SULFATE 220 MG CAP PO SCH (09:37)
[2021-04-29] MEDS: ENOXAPARIN 40 MG/0.4 ML SYRINGE SQ SCH (09:37)
[2021-04-29 10:13] LABS: African American GFR (CKD) 117.1 (60.0-200.0); Anion Gap 15.5 mmol/L (10.00-18.00); BUN/Creat Ratio 18.29 Ratio (12.00-20.00); Blood Urea Nitrogen 12.8 mg/dL (9.0-27.0); Carbon Dioxide 23.5 mmol/L (20.0-27.5); Potassium 4.1 mmol/L (3.5-5.5)
[2021-04-29 10:20] VITALS: BP 135/86; PULSE 64; RESP 17; TEMP 98
--- NOTE | 2021-04-29 12:16 | P.PN ---
Subjective Progress Note Date: 04/29/21 Principal diagnosis: Acute COVID-19 pneumonia This is a very pleasant 50-year-old female patient with a known history of chronic bronchial asthma, hypertension, acid reflux. She states since March 31 she started having issues with sinus congestion cough, and fevers. She was treated with antibiotics and steroids in the outpatient setting. She was seen again and felt to have bronchitis. Yesterday she presented here to the emergency room and did test positive for COVID-19 and received monoclonal antibodies and was discharged to home. CT scan of the chest did reveal m ultifocal moderate groundglass pulmonary interstitial infiltrates bilaterally consistent with COVID-19 pneumonia. She presented here to the emergency room again earlier this morning with worsening shortness of breath, cough and congestion. She was found to be hypoxemic at 89% on room air. She's had a low- grade temperature of 99.5. She had previous issues with nausea vomiting diarrhea. She still has headaches and muscle aches. She is not vaccinated. 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 White count 12.2. Hemoglobin 14.9. Lymphocytes 0.9. INR 0.9. Sodium 137. Potassium 3.4. Creatinine 0.78. Glucose 131. LDH 789. C-reactive protein 8.1. She is seen today in consultation in the ER. She is currently sitting up on the stretcher. Awake and alert in no acute distress. She is maintaining good O2 saturations in the low 90s on 2 L/m per nasal cannula. Currently afebrile. Hemodynamically stable. She's been initiated on Decadron. On 04/28/2021 patient seen in follow-up on medical surgical floor, on today's evaluation she is on room air and her pulse ox is 94%, however she continues to have severe coughing spells, she is short of breath, she states she doesn't feel well. She states her chest hurts from frequent coughing. She has been afebrile, hemodynamically she has been stable, lung sounds reveal diffuse crackles. Patient was diagnosed with COVID-19 pneumonia, her chest x-ray on admission showed multifocal patchy infiltrates throughout both lungs, hypoventilatory changes. CT of the chest that was completed on 04/26/2021 showed multifocal moderate groundglass pulmonary interstitial infiltrates consistent with pneumonia. Patient is an unvaccinated adult, she was outside the window for Remdesivir, she is currently on Decadron 6 blood gram daily, she is status post monoclonal antibody infusion. Today's labs have been reviewed, her d-dimer is within normal limits at 0.38, her CRP is stable at 8.9, LDH level is still pending, pro-calcitonin level was negative at 0.17. She is on prophylactic dose Lovenox 40 mg daily, she is on Singulair, Ventolin, inhaler, and she is on COVID-19 vitamins. On 04/29/2021 patient seen in follow-up on medical surgical floor. She is coughing less, her breathing is improved, lung sounds reveal diffuse inspiratory crackles, no wheezing. She states she is feeling better, she is able to talk and do some activity without severe coughing spells. Yesterday we increased her Decadron to twice daily, we replaced her Zestoretic with Hyzaar, we gave her cough medications. She continues on prophylactic dose Lovenox, she continues on Robitussin-AC, and Tessalon Perles [id number]. She continues on Protonix. No fever or chills, she is maintaining O2 saturations on room air, her pulse ox is 94%, she sits up in the chair, in no acute distress, no hemoptysis no chest discomfort. Her chest x-ray today shows improvement in airspace disease and aeration. Objective - Vital Signs Vital signs: Vital Signs Temp 98 F 04/29/21 10:19 Pulse 64 04/29/21 10:19 Resp 17 04/29/21 10:19 BP 135/86 04/29/21 10:19 Pulse Ox 94 L 04/29/21 10:19 Intake & Output 04/28/21 04/29/21 04/29/21 18:59 06:59 18:59 Intake Total 500 Balance 500 Intake: Oral 500 Other: # Voids 4 2 - Exam GENERAL EXAM: Alert, very pleasant, 50-year-old obese white female, on room air, with a pulse ox of 94% with fcomfortable in no apparent distress. HEAD: Normocephalic/atraumatic. EYES: Normal reaction of pupils, equal size. Conjunctiva pink, sclera white. NOSE: Clear with pink turbinates. THROAT: No erythema or exudates. NECK: No masses, no JVD, no thyroid enlargement, no adenopathy. CHEST: No chest wall deformity. Symmetrical expansion. LUNGS: Equal air entry with diffuse crackles bilaterally CVS: Regular rate and rhythm, normal S1 and S2, no gallops, no murmurs, no rubs ABDOMEN: Soft, nontender. No hepatosplenomegaly, normal bowel sounds, no guarding or rigidity. EXTREMITIES: No clubbing, no edema, no cyanosis, 2+ pulses and upper and lower extremities. MUSCULOSKELETAL: Muscle strength and tone normal. SPINE: No scoliosis or deformity SKIN: No rashes CENTRAL NERVOUS SYSTEM: Alert and oriented -3. No focal deficits, tone is normal in all 4 extremities. PSYCHIATRIC: Alert and oriented -3. Appropriate affect. Intact judgment and insight. - Labs CBC & Chem 7: 04/29/21 06:22 04/29/21 06:22 Labs: Abnormal Lab Results - Last 24 Hours (Table) 04/29/21 Range/Units 06:22 Glucose 162 H (70-110) mg/dL Assessment and Plan Plan: Assessment: #1. Acute hypoxic respiratory failure, mild, related to acute COVID-19 pneumonia, patient came into the emergency department on 04/26/2021 with over a month and a half history of symptoms of cough, shortness of breath, nasal congestion. She had already been treated with antibiotics and steroids on an outpatient basis. Received monoclonal antibodies. She is outside the window for Remdesivir. Not vaccinated against COVID-19 #2. Acute exacerbation of chronic bronchial asthma, unspecified #3. Hypertension #4. GERD/reflux #5. Morbid obesity with BMI 42.1 kg/m #6. Anxiety #7. Nonsmoker Plan: Patient's coughing spells have improved Breathing has improved She remains on room air maintaining stable O2 saturations above 92% Today's chest x-ray shows some improvement in aeration She's had no fever or chills We replaced her Zestoretic with Hyzaar to help with severe coughing spells Patient is stable for discharge home today on prednisone taper, she can resume her DuoNeb, Pulmicort, Singulair, promethazine cough syrup, and she needs to continue on Lansoprazole as previously ordered for possibility of reflux Outpatient follow-up with Dr. Slater in the office in 2 weeks I performed a history & physical examination of the patient and discussed their management with my nurse practitioner, Ana Luisa Fountain. I reviewed the nurse practitioner's note and agree with the documented findings and plan of care. Lung sounds are positive for diffuse crackles throughout the lung salmon. The findings and the impression was discussed with the patient. I attest to the documentation by the nurse practitioner. Time with Patient: Less than 30
--- NOTE | 2021-04-29 12:37 | P.DS ---
Providers Date of admission: 04/27/21 09:37 Expected date of discharge: 04/29/21 Attending physician: Shelby Martinez MD Consults: 04/27/21 09:18 Consult Physician Urgent Consulting Provider: Micki Mullen Consult Reason/Comments: covid Do you want consulting provider notified?: Yes Primary care physician: [place] [facility] Course: 50-year-old female patient with a known history of chronic bronchial asthma, hypertension, acid reflux who presented to the ER due to worsening sob and cough. Since March 31 she started having issues with sinus congestion cough, and fevers. She was treated with antibiotics and steroids in the outpatient setting. Yesterday she presented to the emergency room and did test positive for COVID-19 and received monoclonal antibodies and was discharged to home. CT scan of the chest did reveal multifocal moderate groundglass pulmonary interstitial infiltrates bilaterally consistent with COVID-19 pneumonia. She presented again due to worsening shortness of breath, cough and congestion. Associated symptoms include headaches and muscle aches. Earlier she had nausea, vomiting, diarrhea. She is not vaccinated. Evaluation in the ER revealed that she was hypoxemic at 89% on room air. Temp was 99.5. White count 12.2. Hemoglobin 14.9. Lymphocytes 0.9. INR 0.9. Sodium 137. Potassium 3.4. Creatinine 0.78. Glucose 131. LDH 789. C- reactive protein 8.1. Computed tomography scan of the chest reveals multiple areas of groundglass opacities. PCR covid Test in the emergency department was positive. Upon admission patient was started on steroids as well as Lovenox for DVT prophylaxis. She was out of the window for remdisivir treatment. Due to severe coughing spells her lisinopril was replaced with cozaar. Patient was also treated with Tessalon and Robitussin with codeine. Her cough UNDER better control subsequently. She was followed by pulmonary service while in the hospital. She remained on room air throughout the hospitalization. Today she was cleared by pulmonary for discharge. She will be discharged home in stable condition. Time for discharge 35 minutes. Patient Condition at Discharge: Fair Plan - Discharge Summary Discharge Rx Participant: Yes New Discharge Prescriptions: New predniSONE 0 mg PO DIRECTED 16 Days #40 tab Benzonatate [Tessalon Perles] 200 mg PO TID 10 Days #30 cap Losartan/Hydrochlorothiazide [Hyzaar 50-12.5 Tablet] 1 tab PO DAILY 30 Days #30 tab guaiFENesin-Coden 100-10MG/5ML [Robitussin AC] 10 ml PO Q6HR 10 Days #400 ml Continue Montelukast Sodium [Singulair] 10 mg PO HS Glucosamine HCl/Chondroitin Samuels [Glucosamine-Chondroitin Cap] 1 cap PO DAILY Cholecalciferol [Vitamin D3 (25 Mcg = 1000 Iu)] 50 mcg PO DAILY Fluticasone Nasal [place] [Flonase Nasal [place]] 1 spray EA NOSTRIL DAILY PRN PRN Reason: Allergy Symptoms Budesonide [Pulmicort] 0.5 mg INHALATION RT-BID PRN PRN Reason: Shortness Of Breath Ipratropium-Albuterol Nebulize [Duoneb 0.5 mg-3 mg/3 ml Soln] 3 ml INHALATION RT-Q4H PRN PRN Reason: Wheezing/Shortness of breath Ascorbic Acid [Vitamin C] 1,000 mg PO DAILY Lansoprazole 15 mg PO DAILY Albuterol Inhaler [Ventolin Hfa Inhaler] 2 puff INHALATION RT-QID PRN PRN Reason: Shortness Of Breath Cranberry Fruit Extract [Cranberry] 500 mg PO DAILY Discontinued Lisinopril-Hctz 10-12.5 mg [Zestoretic 10-12.5] 1 tab PO HS Levofloxacin [Levaquin] 500 mg PO DAILY Promethazine/Dextromethorphan [Promethazine-Dm Syrup] 5 ml PO Q4H PRN PRN Reason: COUGH/CONGESTION Dexamethasone 6 mg PO DAILY #9 tablet Discharge Medication List Montelukast Sodium [Singulair] 10 mg PO HS 01/09/18 [History] Albuterol Inhaler [Ventolin Hfa Inhaler] 2 puff INHALATION RT-QID PRN 04/26/21 [History] Ascorbic Acid [Vitamin C] 1,000 mg PO DAILY 04/26/21 [History] Budesonide [Pulmicort] 0.5 mg INHALATION RT-BID PRN 04/26/21 [History] Cholecalciferol [Vitamin D3 (25 Mcg = 1000 Iu)] 50 mcg PO DAILY 04/26/21 [History] Cranberry Fruit Extract [Cranberry] 500 mg PO DAILY 04/26/21 [History] Fluticasone Nasal [place] [Flonase Nasal [place]] 1 spray EA NOSTRIL DAILY PRN 04/26/21 [History] Glucosamine HCl/Chondroitin Samuels [Glucosamine-Chondroitin Cap] 1 cap PO DAILY 04/26/21 [History] Lansoprazole 15 mg PO DAILY 04/26/21 [History] Ipratropium-Albuterol Nebulize [Duoneb 0.5 mg-3 mg/3 ml Soln] 3 ml INHALATION RT-Q4H PRN 04/27/21 [History] Benzonatate [Tessalon Perles] 200 mg PO TID 10 Days #30 cap 04/29/21 [Rx] Losartan/Hydrochlorothiazide [Hyzaar 50-12.5 Tablet] 1 tab PO DAILY 30 Days #30 tab 04/29/21 [Rx] guaiFENesin-Coden 100-10MG/5ML [Robitussin AC] 10 ml PO Q6HR 10 Days #400 ml 04/29/21 [Rx] predniSONE 0 mg PO DIRECTED 16 Days #40 tab 04/29/21 [Rx] Follow up Appointment(s)/Referral(s): Lizbeth Dias MD [STAFF PHYSICIAN] - 2 Weeks Selina Carpenter DO [Primary Care Provider] - 1-2 days Patient Instructions/Handouts: Coronavirus Disease 2019 (COVID-19)
== END 2021-04-29 13:43 | disposition home or self-care (01) | DRG 177 ==
LOC: EC 05:43 → 4SSUR 09:37
PROVIDERS: ADMIT Internal Medicine; ATTEND Internal Medicine
DX: U07.1 COVID-19 (principal); J12.82 Pneumonia due to coronavirus disease 2019; J96.01 Acute respiratory failure with hypoxia; J45.901 Unspecified asthma with (acute) exacerbation; Z68.41 Body mass index [BMI] 40.0-44.9, adult; E66.01 Morbid (severe) obesity due to excess calories; I10 Essential (primary) hypertension; J45.909 Unspecified asthma, uncomplicated; K21.9 Gastro-esophageal reflux disease without esophagitis; Z79.51 Long term (current) use of inhaled steroids; Z79.899 Other long term (current) drug therapy; Z90.710 Acquired absence of both cervix and uterus; Z87.42 Personal history of other diseases of the female genital tract; Z86.59 Personal history of other mental and behavioral disorders; Z87.39 Personal history of other diseases of the musculoskeletal system and connective tissue; Z87.09 Personal history of other diseases of the respiratory system; Z98.890 Other specified postprocedural states; Z88.0 Allergy status to penicillin; Z88.2 Allergy status to sulfonamides; Z91.048 Other nonmedicinal substance allergy status; Z82.49 Family history of ischemic heart disease and other diseases of the circulatory system
CPT/HCPCS: 36415; 71045; 71046; 80048; 80053; 82728; 83615; 83735; 84145; 85025; 85027; 85379; 85610; 85730; 86140; 93005; 94640; 96361; 96374; 99285

== ENCOUNTER 2021-11-23 13:08 | Emergency (ER) | payer BC ==
[2021-11-23 13:14] VITALS: BP 164/82; PULSE 63; RESP 18; TEMP 97.4
--- NOTE | 2021-11-23 14:33 | ED ---
Fall HPI - General Chief Complaint: Fall Stated Complaint: Fall, r wrist pain, head injury Time Seen by Provider: 11/23/21 13:58 Source: patient Mode of arrival: ambulatory - History of Present Illness Initial Comments: Patient is a 51-year-old female presents the emergency room after a misstep and fall yesterday while outdoors stepping into home while carrying groceries. She reports hitting the side of her head on the stairs and bracing her fall with her right arm. She is complaining of a throbbing headache to the region of her head that was hit on the ground which is on the left parietal region. She denies any LOC at the time of fall or since the fall. She reports some mild nausea without vomiting; she denies any altered mental status, weakness or focal neurological deficits. She is complaining of pain and swelling in her right thumb region without range of motion impairment. She denies any other complaints or concerns at this time. She has a past medical history significant for asthma, GERD, DVT on Xarelto, tachycardia following COVID and hypertension. - Related Data Home Medications Medication Instructions Recorded Confirmed Montelukast Sodium [Singulair] 10 mg PO HS 01/09/18 04/27/21 Albuterol Inhaler [Ventolin Hfa 2 puff INHALATION RT-QID PRN 04/26/21 04/27/21 Inhaler] Ascorbic Acid [Vitamin C] 1,000 mg PO DAILY 04/26/21 04/27/21 Budesonide [Pulmicort] 0.5 mg INHALATION RT-BID PRN 04/26/21 04/27/21 Cholecalciferol [Vitamin D3 (25 50 mcg PO DAILY 04/26/21 04/27/21 Mcg = 1000 Iu)] Cranberry Fruit Extract [Cranberry] 500 mg PO DAILY 04/26/21 04/27/21 Fluticasone Nasal [place] [Flonase 1 spray EA NOSTRIL DAILY PRN 04/26/21 04/27/21 Nasal [place]] Glucosamine HCl/Chondroitin Samuels 1 cap PO DAILY 04/26/21 04/27/21 [Glucosamine-Chondroitin Cap] Lansoprazole 15 mg PO DAILY 04/26/21 04/27/21 Ipratropium-Albuterol Nebulize 3 ml INHALATION RT-Q4H PRN 04/27/21 04/27/21 [Duoneb 0.5 mg-3 mg/3 ml Soln] Previous Rx's Medication Instructions Recorded Benzonatate [Tessalon Perles] 200 mg PO TID 10 Days #30 cap 04/29/21 Losartan/Hydrochlorothiazide 1 tab PO DAILY 30 Days #30 tab 04/29/21 [Hyzaar 50-12.5 Tablet] guaiFENesin-Coden 100-10MG/5ML 10 ml PO Q6HR 10 Days #400 ml 04/29/21 [Robitussin AC] predniSONE 0 mg PO DIRECTED 16 Days #40 tab 04/29/21 Allergies Allergy/AdvReac Type Severity Reaction Status Date / Time adhesive tape Allergy SKIN RED Verified 11/23/21 13:13 amoxicillin Allergy Rash/Hives Verified 11/23/21 13:13 Sulfa (Sulfonamide AdvReac Unknown Verified 11/23/21 13:13 Antibiotics) Childhood sulfamethoxazole AdvReac "BLOOD IN Verified 11/23/21 13:13 [From Bactrim] EYES trimethoprim [From Bactrim] AdvReac "BLOOD IN Verified 11/23/21 13:13 EYES" Review of Systems ROS Statement: Those systems with pertinent positive or pertinent negative responses have been documented in the HPI. ROS Other: All systems not noted in ROS Statement are negative. Past Medical History Past Medical History: Asthma, Deep Vein Thrombosis (DVT), Hypertension History of Any Multi-Drug Resistant Organisms: None Reported Past Surgical History: Hysterectomy Additional Past Surgical History / Comment(s): sinus surgery, 3 right knee, 2 left knee Past Anesthesia/Blood Transfusion Reactions: No Reported Reaction Additional Past Anesthesia/Blood Transfusion Reaction / Comment(s): PATIENT STATES SHE HAD A SORE THROAT AFTER HER SURGERY IN JULY 2018- SEE ANESTHESIA REPORT-REPORT IN EMR UNDER REPORTS Past Psychological History: Anxiety Smoking Status: Never smoker Past Alcohol Use History: None Reported Past Drug Use History: None Reported - Past Family History Mother Family Medical History: Hypertension Father Family Medical History: Hypertension, Myocardial Infarction (NM) General Exam Limitations: no limitations General appearance: alert, in no apparent distress Head exam: Present: normocephalic, other (Tenderness parietal region) Eye exam: Present: normal appearance, PERRL, EOMI. Absent: scleral icterus, conjunctival injection, periorbital swelling ENT exam: Present: normal exam, mucous membranes moist Neck exam: Present: normal inspection. Absent: tenderness, meningismus, lymphadenopathy Respiratory exam: Absent: respiratory distress, accessory muscle use Right Forearm Wrist exam: Present: full ROM, tenderness. Absent: swelling, ecchymosis, deformity, crepitus, dislocation Hand Wrist exam: Present: full ROM, tenderness, swelling. Absent: ecchymosis, crepitus, dislocation, erythema Vascular: Absent: vascular compromise Back exam: Present: normal inspection Neurological exam: Present: alert, oriented X3, CN II-XII intact Psychiatric exam: Present: normal affect, normal mood Skin exam: Present: warm, dry, intact, normal color. Absent: rash Course Vital Signs 11/23/21 13:11 Temperature 97.4 F L Pulse Rate 63 Respiratory 18 Rate Blood Pressure 164/82 O2 Sat by Pulse 98 Oximetry Medical Decision Making - Medical Decision Making Due to fall with head trauma on blood thinners will check CT of the brain. Pain and swelling after trauma to right wrist will check right hand and wrist x-ray. No indication for laboratory studies at this time. She denies any analgesic or antiemetic needs. Will monitor closely. Computed tomography scan of the brain showed no acute intracranial processes including bleed, swelling or mass effect. X-ray of the right wrist and hand shows no dislocation or fracture but recommends follow-up in 7-10 days of continued swelling and pain. Will discharge patient home with conservative treatment utilizing Tylenol OTC as needed for pain. Discussed concussive symptoms and if symptoms worsen to return. Case discussed with Dr. Delvalle. Disposition Clinical Impression: Fall Disposition: HOME SELF-CARE Condition: Fair Instructions (If sedation given, give patient instructions): Fall Prevention (ED) Additional Instructions: Please continue use Tylenol OTC as needed for pain. Please continue to monitor for concussive symptoms including but not limited to dizziness, lethargy, altered mental status, nausea without without vomiting or headaches, if symptoms occur please return to the emergency room or seek medical attention as appropriate. Range of motion as tolerated and encouraged for right hand and wrist region. Utilize ice as needed for pain and swelling. If the swelling and pain persists in 7-10 days recommended repeat x-ray. Please follow-up with your primary care provider. Please return to the Emergency Department if symptoms worsen or any other concerns. Is patient prescribed a controlled substance at d/c from ED?: No Referrals: Selina Carpenter DO [Primary Care Provider] - 1-2 days Time of Disposition: 16:14
--- NOTE | 2021-11-23 14:54 | CT ---
EXAMINATION TYPE: CT brain wo con DATE OF EXAM: 11/23/2021 COMPARISON: None HISTORY: Trauma and pain CT DLP: 1052.4 mGycm Automated exposure control for dose reduction was used. Imaging through the brain FINDINGS: Probable mucus retention cyst in the antrum of the right maxillary sinus. The calvarium is intact. Or bits show symmetric appearance. There is some artifact on the exam. There is no hemorrhage or hydrocephalus. Brain density is maintained. Possible small osteoma present in her table left frontal calvarium, axial image #25 IMPRESSION: NO ACUTE ABNORMALITY WITHIN THE BRAIN. SINUS DISEASE AND ADDITIONAL FINDINGS ABOVE.
--- NOTE | 2021-11-23 15:47 | XR ---
EXAMINATION TYPE: XR wrist complete RT DATE OF EXAM: 11/23/2021 COMPARISON: NONE HISTORY: Pain TECHNIQUE: Four views submitted. FINDINGS: The osseous structures are intact. The joint spaces are preserved and there is no acute fracture or dislocation. IMPRESSION: 1. No definite acute fracture or dislocation if symptoms persist, follow-up study in 7 to 10 days wo uld be suggested
--- NOTE | 2021-11-24 07:14 | XR ---
EXAMINATION TYPE: XR hand complete RT DATE OF EXAM: 11/24/2021 COMPARISON: NONE HISTORY: 51-year-old female pain and swelling after fall TECHNIQUE: 3 views FINDINGS: No acute fracture, subluxation, dislocation is seen. IMPRESSION: No acute osseous abnormality seen.
== END 2021-11-23 16:42 | disposition home or self-care (01) ==
LOC: EC 13:08
DX: R51.9 Headache, unspecified (principal); M25.531 Pain in right wrist; I10 Essential (primary) hypertension; J45.909 Unspecified asthma, uncomplicated; F41.9 Anxiety disorder, unspecified; Z86.718 Personal history of other venous thrombosis and embolism; Z79.51 Long term (current) use of inhaled steroids; Z79.01 Long term (current) use of anticoagulants; Z79.899 Other long term (current) drug therapy; W10.9XXA Fall (on) (from) unspecified stairs and steps, initial encounter
CPT/HCPCS: 70450; 99284

== ENCOUNTER → 2023-03-01 | Outpatient (CLI) | payer BC ==
--- NOTE | 2023-03-02 07:32 | MM ---
Reason for Exam: Screening (asymptomatic). Last mammogram was performed 3 year(s) and 3 month(s) ago. Patient History: Menarche at age 12. Patient has no children. Left ovary removed at age 48. Right ovary removed at age 48. Hysterectomy at age 48. Postmenopausal. Maternal aunt had breast cancer, age 65. Maternal aunt had breast cancer. Risk Values: Poonam 5 year model risk: 1.2%. NCI Lifetime model risk: 9.6%. Prior Study Comparison: 03/14/2017 Bilateral Screening Mammogram, [facility]. 07/17/2018 Bilateral Screening Mammogram, [facility]. 11/28/2019 Bilateral Screening Mammogram, [facility]. Tissue Density: There are scattered fibroglandular densities. Findings: Analyzed By CAD. There is no suspicious group of microcalcifications or new suspicious mass in either breast. Scattered benign round calcifications within both breasts. Overall Assessment: Benign, BI-RAD 2 Management: Screening Mammogram of both breasts in 1 year. A clinical breast exam by your physician is recommended on an annual basis and results should be correlated with mammographic findings. Note on Poonam scores and lifetime risk: 1. A Poonam score greater than 3% is considered moderate risk. If this is the case, consider specialist referral to assess eligibility for a risk reducing agent. If overall lifetime risk for the development of breast cancer is 20% or higher, the patient may qualify for future screening with alternating mammogram and breast MRI. Electronically signed and approved by: John Carrizales D.O.
== END | disposition home or self-care (01) ==
LOC: RADMAMWWP 16:07
PROVIDERS: ATTEND Family Medicine
DX: Z12.31 Encounter for screening mammogram for malignant neoplasm of breast (principal); Z78.0 Asymptomatic menopausal state; Z80.3 Family history of malignant neoplasm of breast
CPT/HCPCS: 77067

== ENCOUNTER 2023-10-18 00:35 | Emergency (ER) | payer BC ==
[2023-10-18 01:15] VITALS: RESP 18
--- NOTE | 2023-10-18 01:42 | ED ---
GI Bleed HPI - General Chief complaint: GI Bleed Stated complaint: Anal bleeding, possible hemorrhoids Time Seen by Provider: 10/18/23 01:42 Source: patient Mode of arrival: ambulatory Limitations: no limitations - History of Present Illness Initial comments: 53-year-old female presenting with chief complaint of rectal bleeding. Has been ongoing for 1 day. Patient thinks that she may have hemorrhoids but is unsure. She admits to pressure with sitting down. No pain with bowel movements. No abdominal pain. No fevers. Patient states that she was filling a cloth with blood which prompted her to come to the ER. No fevers. No recent surgeries. No diarrhea or melena. No vomiting. - Related Data Home Medications Medication Instructions Recorded Confirmed Montelukast Sodium [Singulair] 10 mg PO HS 01/09/18 04/27/21 Albuterol Inhaler [Ventolin Hfa 2 puff INHALATION RT-QID PRN 04/26/21 04/27/21 Inhaler] Ascorbic Acid [Vitamin C] 1,000 mg PO DAILY 04/26/21 04/27/21 Budesonide [Pulmicort] 0.5 mg INHALATION RT-BID PRN 04/26/21 04/27/21 Cholecalciferol [Vitamin D3 (25 50 mcg PO DAILY 04/26/21 04/27/21 Mcg = 1000 Iu)] Cranberry Fruit Extract [Cranberry] 500 mg PO DAILY 04/26/21 04/27/21 Fluticasone Nasal [place] [Flonase 1 spray EA NOSTRIL DAILY PRN 04/26/21 04/27/21 Nasal [place]] Glucosamine HCl/Chondroitin Samuels 1 cap PO DAILY 04/26/21 04/27/21 [Glucosamine-Chondroitin Cap] Lansoprazole 15 mg PO DAILY 04/26/21 04/27/21 Ipratropium-Albuterol Nebulize 3 ml INHALATION RT-Q4H PRN 04/27/21 04/27/21 [Duoneb 0.5 mg-3 mg/3 ml Soln] Previous Rx's Medication Instructions Recorded Benzonatate [Tessalon Perles] 200 mg PO TID 10 Days #30 cap 04/29/21 Losartan/Hydrochlorothiazide 1 tab PO DAILY 30 Days #30 tab 04/29/21 [Hyzaar 50-12.5 Tablet] guaiFENesin-Coden 100-10MG/5ML 10 ml PO Q6HR 10 Days #400 ml 04/29/21 [Robitussin AC] predniSONE 0 mg PO DIRECTED 16 Days #40 tab 04/29/21 Hydrocortisone Suppository 25 mg RECTAL DAILY #20 suppositor 10/18/23 [Anusol-Hc] Allergies Allergy/AdvReac Type Severity Reaction Status Date / Time adhesive tape Allergy SKIN RED Verified 10/18/23 01:15 amoxicillin Allergy Rash/Hives Verified 10/18/23 01:15 Sulfa (Sulfonamide AdvReac Unknown Verified 10/18/23 01:15 Antibiotics) Childhood sulfamethoxazole AdvReac "BLOOD IN Verified 10/18/23 01:15 [From Bactrim] EYES trimethoprim [From Bactrim] AdvReac "BLOOD IN Verified 10/18/23 01:15 EYES" Review of Systems ROS Statement: Those systems with pertinent positive or pertinent negative responses have been documented in the HPI. ROS Other: All systems not noted in ROS Statement are negative. Past Medical History Past Medical History: Asthma, Deep Vein Thrombosis (DVT), Hypertension History of Any Multi-Drug Resistant Organisms: None Reported Past Surgical History: Hysterectomy Additional Past Surgical History / Comment(s): sinus surgery, 3 right knee, 2 left knee Past Anesthesia/Blood Transfusion Reactions: No Reported Reaction Additional Past Anesthesia/Blood Transfusion Reaction / Comment(s): PATIENT STATES SHE HAD A SORE THROAT AFTER HER SURGERY IN JULY 2018- SEE ANESTHESIA REPORT-REPORT IN EMR UNDER REPORTS Past Psychological History: Anxiety Smoking Status: Never smoker Past Alcohol Use History: None Reported Past Drug Use History: None Reported - Past Family History Mother Family Medical History: Hypertension Father Family Medical History: Hypertension, Myocardial Infarction (NM) General Exam - General Exam Comments Initial Comments: Visual Physical Exam Vital signs reviewed General: Well-appearing, nontoxic, no acute distress. Head: Normocephalic, atraumatic Eyes: PERRLA, EOMI ENT: Airway patent Chest: Nonlabored breathing Skin: No visual rash, normal skin tone Neuro: Alert and oriented 3 Musculoskeletal: No gross abnormalities Limitations: no limitations General appearance: alert, in no apparent distress Head exam: Present: atraumatic, normocephalic Eye exam: Present: normal appearance, EOMI Neck exam: Present: normal inspection. Absent: meningismus Respiratory exam: Absent: respiratory distress Cardiovascular Exam: Present: regular rate Rectal exam: Present: hemorrhoids Neurological exam: Present: alert, oriented X3 Psychiatric exam: Present: normal affect, normal mood Skin exam: Present: normal color Course Vital Signs 10/18/23 10/18/23 01:12 02:45 Temperature 98.2 F 98.0 F Pulse Rate 89 100 Respiratory 18 18 Rate Blood Pressure 164/95 148/96 O2 Sat by Pulse 97 99 Oximetry Medical Decision Making - Medical Decision Making Was pt. sent in by a medical professional or institution (, PA, METAL MACHINIST, urgent care, hospital, or fpc...) When possible be specific @ -No Did you speak to anyone other than the patient for history (EMS, parent, family, police, friend...)? What history was obtained from this source @ -No Did you review nursing and triage notes (agree or disagree)? Why? @ -I reviewed and agree with nursing and triage notes Were old charts reviewed (outside hosp., previous admission, EMS record, old EKG, old radiological studies, urgent care reports/EKG's, fpc records)? Report findings @ -No old charts were reviewed Differential Diagnosis (chest pain, altered mental status, abdominal pain women, abdominal pain men, vaginal bleeding, weakness, fever, dyspnea, syncope, headache, dizziness, GI bleed, back pain, seizure, CVA, palpatations, mental health, musculoskeletal)? @ -MDM Differential GI Bleed: Esophageal varices, aortoenteric fistula, Yumi-Tolliver, gastritis, peptic ulcer disease, diverticulosis, inflammatory bowel disease, hemorrhoids, fissure, colitis, malignancy, Meckels diverticulum this is not meant to be an all- inclusive list. EKG interpreted by me (3pts min.). @ -As above X-rays interpreted by me (1pt min.). @ -None done CT interpreted by me (1pt min.). @ -None done U/S interpreted by me (1pt. min.). @ -None done What testing was considered but not performed or refused? (CT, X-rays, U/S, labs)? Why? @ -None What meds were considered but not given or refused? Why? @ -None Did you discuss the management of the patient with other professionals (professionals i.e. Dr., PA, METAL MACHINIST, lab, RT, psych nurse, social worker masters, brush holder inspector, teacher, police liaison officer, trimming caser)? Give summary @ -No Was smoking cessation discussed for >3mins.? @ -No Was critical care preformed (if so, how long)? @ -No Were there social determinants of health that impacted care today? How? (Homelessness, low income, unemployed, alcoholism, drug addiction, transportation, low edu. Level, literacy, decrease access to med. care, halfway, rehab)? @ -No Was there de-escalation of care discussed even if they declined (Discuss DNR or withdrawal of care, Hospice)? DNR status @ -No What co-morbidities impacted this encounter? (DM, HTN, Smoking, COPD, CAD, Cancer, CVA, ARF, Chemo, Hep., AIDS, mental health diagnosis, sleep apnea, morbid obesity)? @ -None Was patient admitted / discharged? Hospital course, mention meds given and route, prescriptions, significant lab abnormalities, going to OR and other pertinent info. @ -53-year-old female presenting with chief complaint of rectal bleeding. She admits to pressure when she sits. Workup is initiated by triage. Hemoglobin is 13.9. Patient is brought back to an exam room where rectal exam is performed. Patient does have 3 external hemorrhoids, bleeding is controlled at this time. Patient is educated on today's findings. She is provided with Anusol suppositories and general surgery follow-up. Discharged home. Follow-up with PCP. Report back to ER with any new or worsening symptoms. Discussed return parameters and answered all questions. Patient conveyed verbal understanding and agreed to the plan. I discussed this case in detail with my attending Dr. Pascal Undiagnosed new problem with uncertain prognosis? @ -No Drug Therapy requiring intensive monitoring for toxicity (Heparin, Nitro, Insulin, Cardizem)? @ -No Were any procedures done? @ -No Diagnosis/symptom? @ -Hemorrhoids Acute, or Chronic, or Acute on Chronic? @ -Acute Uncomplicated (without systemic symptoms) or Complicated (systemic symptoms)? @ -uncomplicated Side effects of treatment? @ -No Exacerbation, Progression, or Severe Exacerbation? @ -No Poses a threat to life or bodily function? How? (Chest pain, USA, NM, pneumonia, PE, COPD, DKA, ARF, appy, cholecystitis, CVA, Diverticulitis, Homicidal, Suicidal, threat to staff... and all critical care pts) @ -No - Lab Data Result diagrams: 10/18/23 01:22 10/18/23 01:22 Lab Results 10/18/23 10/18/23 10/18/23 Range/Units 01:17 01:22 01:22 WBC 7.0 (3.8-10.6) k/uL RBC 4.50 (3.80-5.40) m/uL Hgb 13.9 (11.4-16.0) gm/dL Hct 41.8 (34.0-46.0) % MCV 92.9 (80.0-100.0) fL MCH 30.8 (25.0-35.0) pg MCHC 33.2 (31.0-37.0) g/dL RDW 13.5 (11.5-15.5) % Plt Count 300 (150-450) k/uL MPV 8.1 Neutrophils % 54 % Lymphocytes % 36 % Monocytes % 7 % Eosinophils % 2 % Basophils % 0 % Neutrophils # 3.7 (1.3-7.7) k/uL Lymphocytes # 2.5 (1.0-4.8) k/uL Monocytes # 0.5 (0-1.0) k/uL Eosinophils # 0.1 (0-0.7) k/uL Basophils # 0.0 (0-0.2) k/uL APTT 23.4 (22.0-30.0) sec Sodium (137-145) mmol/L Potassium (3.5-5.1) mmol/L Chloride (98-107) mmol/L Carbon Dioxide (22-30) mmol/L Anion Gap mmol/L BUN (7-17) mg/dL Creatinine (0.52-1.04) mg/dL Est GFR (CKD-EPI)AfAm (>60 ml/min/1.73 sqM) Est GFR (CKD-EPI)NonAf (>60 ml/min/1.73 sqM) Glucose (74-99) mg/dL Calcium (8.4-10.2) mg/dL Total Bilirubin (0.2-1.3) mg/dL AST (14-36) U/L ALT (4-34) U/L Alkaline Phosphatase (38-126) U/L Total Protein (6.3-8.2) g/dL Albumin (3.5-5.0) g/dL Blood Type O Positive Blood Type Recheck O Pos Bld Type Recheck Status No Antibody Screen NEGATIVE Spec Expiration Date 10/21/2023 - 231610/18/23 Range/Units 01:22 WBC (3.8-10.6) k/uL RBC (3.80-5.40) m/uL Hgb (11.4-16.0) gm/dL Hct (34.0-46.0) % MCV (80.0-100.0) fL MCH (25.0-35.0) pg MCHC (31.0-37.0) g/dL RDW (11.5-15.5) % Plt Count (150-450) k/uL MPV Neutrophils % % Lymphocytes % % Monocytes % % Eosinophils % % Basophils % % Neutrophils # (1.3-7.7) k/uL Lymphocytes # (1.0-4.8) k/uL Monocytes # (0-1.0) k/uL Eosinophils # (0-0.7) k/uL Basophils # (0-0.2) k/uL APTT (22.0-30.0) sec Sodium 141 (137-145) mmol/L Potassium 3.4 L (3.5-5.1) mmol/L Chloride 106 (98-107) mmol/L Carbon Dioxide 26 (22-30) mmol/L Anion Gap 9 mmol/L BUN 12 (7-17) mg/dL Creatinine 0.71 (0.52-1.04) mg/dL Est GFR (CKD-EPI)AfAm >90 (>60 ml/min/1.73 sqM) Est GFR (CKD-EPI)NonAf >90 (>60 ml/min/1.73 sqM) Glucose 167 H (74-99) mg/dL Calcium 8.5 (8.4-10.2) mg/dL Total Bilirubin 0.5 (0.2-1.3) mg/dL AST 21 (14-36) U/L ALT 17 (4-34) U/L Alkaline Phosphatase 74 (38-126) U/L Total Protein 6.7 (6.3-8.2) g/dL Albumin 4.2 (3.5-5.0) g/dL Blood Type Blood Type Recheck Bld Type Recheck Status Antibody Screen Spec Expiration Date Disposition Clinical Impression: Hemorrhoids Disposition: HOME SELF-CARE Condition: Good Instructions (If sedation given, give patient instructions): Hemorrhoids (ED), Rectal Bleeding (ED) Additional Instructions: Follow-up with PCP and surgeon. Report back to ER with any new or worsening symptoms. Prescriptions: Hydrocortisone Suppository [Anusol-Hc] 25 mg RECTAL DAILY #20 suppositor Is patient prescribed a controlled substance at d/c from ED?: No Referrals: Selina Carpenter DO [Primary Care Provider] - 1-2 days Miguelina Bravo MD [STAFF PHYSICIAN] - 1-2 days Time of Disposition: 02:15
[2023-10-18] MEDS: HYDROCORTISONE SUPPOSITORY 25 MG SUPP RECTAL STA (02:45)
[2023-10-18 02:47] VITALS: BP 148/96; PULSE 100; TEMP 98
[2023-10-18 03:30] LABS: Basophils % (A) 0 %; Eosinophils # (A) 0.1 k/uL (0-0.7); Eosinophils % (A) 2 %; HCT 41.8 % (34.0-46.0); HGB 13.9 gm/dL (11.4-16.0); Lymphocytes # (A) 2.5 k/uL (1.0-4.8); Lymphocytes % (A) 36 %; MCH 30.8 pg (25.0-35.0); MCHC 33.2 g/dL (31.0-37.0); MCV 92.9 fL (80.0-100.0); Mean Platelet Volume 8.1; Monocytes # (A) 0.5 k/uL (0-1.0); Monocytes % (A) 7 %; Neutrophils # (A) 3.7 k/uL (1.3-7.7); Neutrophils % (A) 54 %; Platelet Count 300 k/uL (150-450); RDW 13.5 % (11.5-15.5)
[2023-10-18 03:46] LABS: ALT 17 U/L (4-34); AST 21 U/L (14-36); African American GFR (CKD) >90 (>60 ml/min/1.73 sqM); Albumin 4.2 g/dL (3.5-5.0); Alkaline Phosphatase 74 U/L (38-126); Anion Gap 9 mmol/L; Blood Urea Nitrogen 12 mg/dL (7-17); Calcium 8.5 mg/dL (8.4-10.2); Carbon Dioxide 26 mmol/L (22-30); Chloride 106 mmol/L (98-107); Glucose 167 mg/dL (74-99); Non-African American GFR(CKD) >90 (>60 ml/min/1.73 sqM); Potassium 3.4 mmol/L (3.5-5.1); Sodium 141 mmol/L (137-145); Total Bilirubin 0.5 mg/dL (0.2-1.3); Total Protein 6.7 g/dL (6.3-8.2)
== END 2023-10-18 02:48 | disposition home or self-care (01) ==
LOC: EC 00:35
DX: K64.9 Unspecified hemorrhoids (principal); Z88.0 Allergy status to penicillin; Z88.2 Allergy status to sulfonamides; Z91.048 Other nonmedicinal substance allergy status
CPT/HCPCS: 36415; 80053; 85025; 85730; 86850; 86900; 86901; 99283; 99284

== ENCOUNTER → 2024-02-01 | Outpatient (CLI) | payer BC ==
[2024-02-01 11:11] LABS: Basophils # (A) 0.03 X 10*3/uL (0.00-0.10); Basophils % (A) 0.3 %; Eosinophils # (A) 0.11 X 10*3/uL (0.04-0.35); Eosinophils % (A) 1.2 %; HCT 40.3 % (37.2-46.3); HGB 13.6 g/dL (12.0-15.0); Lymphocytes # (A) 1.75 X 10*3/uL (0.90-5.00); Lymphocytes % (A) 19.3 %; MCH 30.8 pg (27.0-32.0); MCHC 33.7 g/dL (32.0-37.0); MCV 91.4 FL (80.0-97.0); Mean Platelet Volume 9.8 FL (9.5-12.2); Monocytes # (A) 0.53 X 10*3/uL (0.20-1.00); Monocytes % (A) 5.8 %; NRBC Per 100 WBC 0 X 10*3/uL (0.00-0.01); Neutrophils # (A) 6.64 X 10*3/uL (1.80-7.70); Neutrophils % (A) 73.2 %; Platelet Count 257 X 10*3/uL (140-440); RBC 4.41 X 10*6/uL (4.10-5.20); RDW 12.7 % (11.5-14.5); WBC 9.08 X 10*3/uL (4.50-10.00)
[2024-02-01 12:06] LABS: ALT 11 U/L (8-44); AST 14 U/L (13-35); Albumin/Globulin Ratio 1.82 Ratio (1.60-3.17); Alkaline Phosphatase 98 U/L (41-126); Blood Urea Nitrogen 9.8 mg/dL (9.0-27.0); Carbon Dioxide 28.1 mmol/L (21.6-31.8); Chloride 101 mmol/L (96-109); Chol/HDL Ratio 4.75 Ratio; Globulin 2.2 g/dL (1.6-3.3); Glucose 120 mg/dL (70-110); LDL Cholesterol,Calculated 147.4 mg/dL (0.0-131.0); Potassium 3.8 mmol/L (3.5-5.5); Sodium 144 mmol/L (135-145); Total Bilirubin 0.7 mg/dL (0.3-1.2); Total Protein 6.2 g/dL (6.2-8.2)
== END | disposition home or self-care (01) ==
LOC: LABWHC1 06:56
PROVIDERS: ATTEND Family Medicine
DX: Z00.00 Encounter for general adult medical examination without abnormal findings
CPT/HCPCS: 36415; 80053; 80061; 82306; 83036; 84443; 85025

== ENCOUNTER → 2024-03-05 | Outpatient (CLI) | payer BC ==
--- NOTE | 2024-03-06 11:47 | MM ---
Reason for Exam: Screening (asymptomatic). Last screening mammogram was performed 12 month(s) ago. Patient History: Menarche at age 12. Patient has no children. Left ovary removed at age 48. Right ovary removed at age 48. Hysterectomy at age 48. Postmenopausal. Maternal aunt had breast cancer, age 65. Maternal aunt had breast cancer. Risk Values: Poonam 5 year model risk: 1.2%. NCI Lifetime model risk: 9.4%. Prior Study Comparison: 07/17/2018 Bilateral Screening Mammogram, [facility]. 11/28/2019 Bilateral Screening Mammogram, [facility]. 03/01/2023 Bilateral MG screening mammo w CAD, [facility]. Tissue Density: The breasts are almost entirely fatty. Findings: Analyzed By CAD. Right breast: There is no suspicious group of microcalcifications or new suspicious mass. Left breast: There is no suspicious group of microcalcifications or new suspicious mass. Overall Assessment: Negative, BI-RAD 1 Management: Screening Mammogram of both breasts in [address] [facility] will attempt to contact patient to return for supplemental views and ultrasound if indicated. Patient should continue monthly self-breast exams. A clinical breast exam by your physician is recommended on an annual basis. This exam should not preclude additional follow-up of suspicious palpable abnormalities. Note on Poonam scores and lifetime risk: 1. A Poonam score greater than 3% is considered moderate risk. If this is the case, consider specialist referral to assess eligibility for a risk reducing agent. 2. If overall lifetime risk for the development of breast cancer is 20% or higher, the patient may qualify for future screening with alternating mammogram and breast MRI. [facility], , 03/06/2024 11:44 AM. Electronically signed and approved by: Narciso Porter DO
== END | disposition home or self-care (01) ==
LOC: RADMAMWWP 15:50
PROVIDERS: ATTEND Family Medicine
DX: Z12.31 Encounter for screening mammogram for malignant neoplasm of breast (principal); Z78.0 Asymptomatic menopausal state; Z80.3 Family history of malignant neoplasm of breast; Z90.722 Acquired absence of ovaries, bilateral
CPT/HCPCS: 77067

== ENCOUNTER 2024-09-18 22:32 | Emergency (ER) | payer BC ==
--- NOTE | 2024-09-19 02:31 | ED ---
Fall HPI - General Chief Complaint: Fall Stated Complaint: Fall Time Seen by Provider: 09/18/24 22:45 Source: patient, RN notes reviewed Mode of arrival: ambulatory Limitations: no limitations - History of Present Illness Initial Comments: 53-year-old female presented the ER for evaluation of a fall. Patient states she accidentally tripped over her cats causing her to fall forward. She believes she put both her arms out to brace her fall. She also reports hitting her right knee. She was reported majority of her pain to her lower back and describes it as a "spasming" discomfort. She denies any paresthesias to bilateral lower or upper extremities. No saddle paresthesias, bowel or bladder incontinence/retention, fevers or history of IV drug abuse. She has not taken anything for pain at this time. She denies any head injury, loss of consciousness or blood thinner use. Patient states overall she is feels very "sore". No other injuries or complaints. Patient reports the pain does "take her breath away". Denies any shortness of breath or chest pain at rest. - Related Data Home Medications Medication Instructions Recorded Confirmed Montelukast Sodium [Singulair] 10 mg PO HS 01/09/18 04/27/21 Albuterol Inhaler [Ventolin Hfa 2 puff INHALATION RT-QID PRN 04/26/21 04/27/21 Inhaler] Ascorbic Acid [Vitamin C] 1,000 mg PO DAILY 04/26/21 04/27/21 Budesonide [Pulmicort] 0.5 mg INHALATION RT-BID PRN 04/26/21 04/27/21 Cholecalciferol [Vitamin D3 (25 50 mcg PO DAILY 04/26/21 04/27/21 Mcg = 1000 Iu)] Cranberry Fruit Extract [Cranberry] 500 mg PO DAILY 04/26/21 04/27/21 Fluticasone Nasal [place] [Flonase 1 spray EA NOSTRIL DAILY PRN 04/26/21 04/27/21 Nasal [place]] Glucosamine HCl/Chondroitin Samuels 1 cap PO DAILY 04/26/21 04/27/21 [Glucosamine-Chondroitin Cap] Lansoprazole 15 mg PO DAILY 04/26/21 04/27/21 Ipratropium-Albuterol Nebulize 3 ml INHALATION RT-Q4H PRN 04/27/21 04/27/21 [Duoneb 0.5 mg-3 mg/3 ml Soln] Previous Rx's Medication Instructions Recorded Benzonatate [Tessalon Perles] 200 mg PO TID 10 Days #30 cap 04/29/21 Losartan/Hydrochlorothiazide 1 tab PO DAILY 30 Days #30 tab 04/29/21 [Hyzaar 50-12.5 Tablet] guaiFENesin-Coden 100-10MG/5ML 10 ml PO Q6HR 10 Days #400 ml 04/29/21 [Robitussin AC] predniSONE 0 mg PO DIRECTED 16 Days #40 tab 04/29/21 Hydrocortisone Suppository 25 mg RECTAL DAILY #20 suppositor 10/18/23 [Anusol-Hc] Cyclobenzaprine [Flexeril] 10 mg PO HS PRN #15 tab 09/19/24 Lidocaine 5% Patch [Lidoderm] 1 patch TOPICAL DAILY #30 patch 09/19/24 Allergies Allergy/AdvReac Type Severity Reaction Status Date / Time adhesive tape Allergy SKIN RED Verified 09/18/24 22:38 amoxicillin Allergy Rash/Hives Verified 09/18/24 22:38 Sulfa (Sulfonamide AdvReac Unknown Verified 09/18/24 22:38 Antibiotics) Childhood sulfamethoxazole AdvReac "BLOOD IN Verified 09/18/24 22:38 [From Bactrim] EYES trimethoprim [From Bactrim] AdvReac "BLOOD IN Verified 09/18/24 22:38 EYES" Review of Systems ROS Statement: Those systems with pertinent positive or pertinent negative responses have been documented in the HPI. ROS Other: All systems not noted in ROS Statement are negative. Past Medical History Past Medical History: Asthma, Deep Vein Thrombosis (DVT), Hypertension History of Any Multi-Drug Resistant Organisms: None Reported Past Surgical History: Hysterectomy Additional Past Surgical History / Comment(s): sinus surgery, 3 right knee, 2 left knee Past Anesthesia/Blood Transfusion Reactions: No Reported Reaction Additional Past Anesthesia/Blood Transfusion Reaction / Comment(s): PATIENT STATES SHE HAD A SORE THROAT AFTER HER SURGERY IN JULY 2018- SEE ANESTHESIA REPORT-REPORT IN EMR UNDER REPORTS Past Psychological History: Anxiety Smoking Status: Never smoker Past Alcohol Use History: None Reported Past Drug Use History: None Reported - Past Family History Mother Family Medical History: Hypertension Father Family Medical History: Hypertension, Myocardial Infarction ([place]) General Exam Limitations: no limitations General appearance: alert, in no apparent distress Neck exam: Present: normal inspection. Absent: tenderness, meningismus, lymphadenopathy Respiratory exam: Present: normal lung sounds bilaterally. Absent: respiratory distress, wheezes, rales, rhonchi, stridor Cardiovascular Exam: Present: regular rate, normal rhythm, normal heart sounds. Absent: systolic murmur, diastolic murmur, rubs, gallop, clicks Extremities exam: Present: full ROM, tenderness (Anterior medial right knee minimal edema and contusion noted.), normal capillary refill (2+ bilateral DP and radial pulses.), other (No anatomical snuffbox tenderness bilaterally. Negative straight leg raise bilaterally.) Back exam: Present: normal inspection, full ROM, tenderness (Left flank) Skin exam: Present: warm, dry, intact, normal color. Absent: rash Course Vital Signs 09/18/24 22:34 Temperature 97.5 F L Pulse Rate 82 Respiratory 18 Rate Blood Pressure 148/95 O2 Sat by Pulse 96 Oximetry Medical Decision Making - Medical Decision Making Was pt. sent in by a medical professional or institution (Dr. PA, STOCK ROOM MANAGER, urgent care, hospital, or residential...) When possible be specific @ -[No] Did you speak to anyone other than the patient for history (EMS, parent, family, police, friend...)? What history was obtained from this source @ -[No] Did you review nursing and triage notes (agree or disagree)? Why? @ -[I reviewed and agree with nursing and triage notes] Were old charts reviewed (outside hosp., previous admission, EMS record, old EKG, old radiological studies, urgent care reports/EKG's, residential records)? Report findings @ -[No old charts were reviewed] Differential Diagnosis (chest pain, altered mental status, abdominal pain women, abdominal pain men, vaginal bleeding, weakness, fever, dyspnea, syncope, headache, dizziness, GI bleed, back pain, seizure, CVA, palpatations, mental health, musculoskeletal)? @ -Fracture, dislocation, contusion, hematoma, intracranial hemorrhage, concussion, abrasion, laceration this list does not like to be all-inclusive EKG interpreted by me (3pts min.). @ -[None done X-rays interpreted by me (1pt min.). @ -[None done] CT interpreted by me (1pt min.). @ -[None done] U/S interpreted by me (1pt. min.). @ -[None done] What testing was considered but not performed or refused? (CT, X-rays, U/S, labs)? Why? @ -[None] What meds were considered but not given or refused? Why? @ -[None] Did you discuss the management of the patient with other professionals (professionals i.e. , PA, STOCK ROOM MANAGER, lab, RT, psych nurse, socially responsible investment adviser, attorney lawyer, teacher, interface control officer, behavioral health case manager)? Give summary @ -[No] Was smoking cessation discussed for >3mins.? @ -[No] Was critical care preformed (if so, how long)? @ -[No] Were there social determinants of health that impacted care today? How? (Homelessness, low income, unemployed, alcoholism, drug addiction, transportation, low edu. Level, literacy, decrease access to med. care, residential, rehab)? @ -[No] Was there de-escalation of care discussed even if they declined (Discuss DNR or withdrawal of care, Hospice)? DNR status @ -[No] What co-morbidities impacted this encounter? (DM, HTN, Smoking, COPD, CAD, Cancer, CVA, ARF, Chemo, Hep., AIDS, mental health diagnosis, sleep apnea, morbid obesity)? @ -[None] Was patient admitted / discharged? Hospital course, mention meds given and route, prescriptions, significant lab abnormalities, going to OR and other pertinent info. @ -[hospital course] Undiagnosed new problem with uncertain prognosis? @ -[No] Drug Therapy requiring intensive monitoring for toxicity (Heparin, Nitro, Insulin, Cardizem)? @ -[No] Were any procedures done? @ -[No] Diagnosis/symptom? @ -[default] Acute, or Chronic, or Acute on Chronic? @ -[default] Uncomplicated (without systemic symptoms) or Complicated (systemic symptoms)? @ -[default] Side effects of treatment? @ -[No] Exacerbation, Progression, or Severe Exacerbation? @ -[No] Poses a threat to life or bodily function? How? (Chest pain, [place], [place], pneumonia, PE, COPD, DKA, ARF, appy, cholecystitis, CVA, Diverticulitis, Homicidal, Suicidal, threat to staff... and all critical care pts) @ -[No] Disposition Clinical Impression: Fall Disposition: HOME SELF-CARE Condition: Stable Additional Instructions: You may take [id number]-cei-fhfvgdy ibuprofen and Tylenol for pain control. Continue to rest ice elevate and stretch. I also recommend massage. Return to the ER for any new or worsening concerns. Prescriptions: Cyclobenzaprine [Flexeril] 10 mg PO HS PRN #15 tab PRN Reason: Muscle Pain Lidocaine 5% Patch [Lidoderm] 1 patch TOPICAL DAILY #30 patch Is patient prescribed a controlled substance at d/c from ED?: No Referrals: None,Stated [REFERRING] - 1-2 days [facility] [NON-STAFF] - 1-2 days [facility] [NON-STAFF] - 1-2 days Forms: Area PCPs Time of Disposition: 03:34
[2024-09-19] MEDS: HYDROcodone/APAP 5-325MG 1 EACH TAB PO STA (02:47)
[2024-09-19] MEDS: ORPHENADRINE 30 MG/ML 2 ML VIAL IM STA (02:47)
[2024-09-19] MEDS: IBUPROFEN 600 MG TAB PO STA (02:47)
[2024-09-19] MEDS: LIDOCAINE 4% PATCH TOPICAL ONE (02:47)
[2024-09-19 03:52] VITALS: BP 136/84; PULSE 70; RESP 16; TEMP 97.9
--- NOTE | 2024-09-19 05:37 | XR ---
EXAMINATION TYPE: XR forearm RT, XR hand complete RT DATE OF EXAM: 09/19/2024 CLINICAL INDICATION: Female, 53 years old with history of fall, pain TECHNIQUE: Two views of the right forearm are obtained. 3 views right hand. COMPARISON: None. FINDINGS: There is no acute fracture or dislocation seen in the right radius or ulna. The right elb ow and wrist joints appear within normal limits. No acute displaced fracture of the right hand. Joint spaces are preserved. The overlying soft tissue appears within normal limits. IMPRESSION: There is no acute fracture or dislocation seen in the right forearm or hand. [facility], Workstation: [facility], 09/19/2024 5:34 AM
--- NOTE | 2024-09-19 05:38 | XR ---
EXAMINATION TYPE: XR lumbar spine 2 or 3V DATE OF EXAM: 09/19/2024 CLINICAL INDICATION: Female, 53 years old with history of fall, pain TECHNIQUE: Frontal and lateral images of the lumbar spine are obtained. COMPARISON: Prior lumbar spine x-ray February 25, 2021 FINDINGS: There are 5 lumbar type vertebral bodies redemonstrated. The lumbar spine shows slight sc oliotic curvature and exaggerated lumbar lordosis without evidence of acute fracture or dislocation. Vertebral body heights remain within normal limits. Slight grade 1 retrolisthesis of L2 on L3. Moder ate disc space narrowing with moderate to severe anterior spurring at the L2-L3 level is seen. The o verlying soft tissue appears unremarkable. IMPRESSION: No acute fracture or dislocation is seen in the lumbar spine. [facility], Workstation: [facility], 09/19/2024 5:36 AM
--- NOTE | 2024-09-19 05:39 | XR ---
EXAMINATION TYPE: XR knee complete RT DATE OF EXAM: 09/19/2024 CLINICAL INDICATION: Female, 53 years old with history of fall, pain TECHNIQUE: Frontal, lateral, and oblique views of the knee were obtained. COMPARISON: None. FINDINGS: There is no acute fracture/dislocation evident in right knee. Moderate to severe tricompar tment joint space loss. Moderate spurring medial tibiofemoral compartment. The overlying soft tissue appears unremarkable. IMPRESSION: There is no acute fracture or dislocation in the right knee. [facility], Workstation: [facility], 09/19/2024 5:37 AM
== END 2024-09-19 03:53 | disposition home or self-care (01) ==
LOC: EC 22:32
DX: S80.01XA Contusion of right knee, initial encounter (principal); Z88.0 Allergy status to penicillin; Z88.2 Allergy status to sulfonamides; Z88.1 Allergy status to other antibiotic agents; Z91.048 Other nonmedicinal substance allergy status; W01.0XXA Fall on same level from slipping, tripping and stumbling without subsequent striking against object, initial encounter
CPT/HCPCS: 72100; 73090; 73130; 73562; 99283; 96372; J2360